=== PATIENT | female | born 1940 | race African-American/Black ===

== ENCOUNTER 2020-04-27 15:07 | Inpatient (IN) | payer MEDICARE, MEDICAID, OTHER ==
[2020-04-27 15:47] LABS: #Lymphocytes 0.8 thou/uL (1.20-3.40); #Monocytes 0.6 thou/uL (0.11-0.59); #Neutrophils 4.3 thou/uL (1.40-6.50); %Basophils 0.1 % (0.0-1.0); %Eosinophils 0.1 % (0.0-10.0); %Lymphocytes 14.7 % (21.0-51.0); %Monocytes 9.7 % (0.0-10.0); %Neutrophils 75.5 % (42.0-75.0); Hemoglobin 13.4 g/dL (12.0-16.0); Mean Corpuscular HGB CONC 33.5 g/dL (32.0-36.0); Mean Corpuscular Hemoglobin 31.6 pg (27.0-31.0); Mean Corpuscular Volume 94.5 fL (78.0-98.0); Red Blood Cell (RBC) Count 4.23 mill/uL (4.20-5.40); White Blood Cell (WBC) Count 5.7 thou/uL (4.8-10.8)
[2020-04-27] MEDS ORDERED: Dexamethasone 10 MG/ML VIAL ONE (15:55)
[2020-04-27] MEDS ORDERED: cefTRIAXone\\ROCEPHIN 2 GM VIAL ONE (15:55)
[2020-04-27] MEDS ORDERED: Azithromycin 500 MG VIAL ONE (15:55)
[2020-04-27 16:05] LABS: ALT (SGPT) 23 U/L (8-55); AST (SGOT) 45 U/L (5-34); Albumin 3.4 g/dL (3.4-4.8); Alkaline Phosphatase 54 U/L (40-110); Anion Gap 15 mmol/L (10-20); BUN (Urea Nitrogen) 14 mg/dL (9.8-20.1); Bilirubin, Total 0.2 mg/dL (0.2-1.2); Calc. Creatinine Clearance 0 mL/min (70-130); Calcium 8.4 mg/dL (7.8-10.44); Carbon Dioxide 19 mmol/L (23-31); Chloride 106 mmol/L (98-107); Estimated GFR-MDRD 54; Globulin 3.5 g/dL (2.4-3.5); Glucose 173 mg/dL (83-110); Potassium 4.3 mmol/L (3.5-5.1); Protein, Total 6.9 g/dL (6.0-8.3); Sodium 136 mmol/L (136-145)
--- NOTE | 2020-04-27 16:07 | RAD ---
Exam: Chest one view HISTORY:Sepsis. Worsening shortness of breath. Comparison: 04/24/2020 FINDINGS: Cardiac silhouette:Cardiomegaly. Sternotomy wires. Aorta: Atherosclerosis Pulmonary vessels: Normal Costophrenic angles: Clear LUNGS: Bilateral perihilar infiltrates. Pneumothorax: None Osseous abnormalities: None IMPRESSION: Bilateral perihilar infiltrates due to edema or pneumonia. Continued surveillance is kirti mmended.
[2020-04-27 16:10] LABS: Mean Platelet Volume 11.3 fL (7.4-10.4); Platelet Count 89 thou/uL (130-400); Platelet Morphology Comment Appears Decreased; RBC Morphology Normal
[2020-04-27] MEDS ORDERED: Ondansetron ODT 4 MG TAB SL PRN (18:59)
[2020-04-27] MEDS ORDERED: Sodium Chloride 0.9% 1,000 ML IV SCH (18:59)
[2020-04-27] MEDS ORDERED: Ondansetron PF 4 MG/2 ML Vial IVP PRN (18:59)
[2020-04-27] MEDS ORDERED: Acetaminophen 325 MG TAB PO PRN (18:59)
[2020-04-27] MEDS ORDERED: Dextrose 50% Abboject 50 ML SYRINGE SLOW IVP PRN (20:35)
[2020-04-27] MEDS ORDERED: Dextrose 5% in Water 1,000 ML IV PRN (20:35)
[2020-04-27] MEDS ORDERED: hydrALAZINE 20 MG/ML VIAL SLOW IVP PRN (20:37)
[2020-04-27] MEDS ORDERED: Insulin Glargine 10 UNITS in Pre-Filled Syringe 1 EACH SC SCH (21:00)
--- NOTE | 2020-04-27 21:37 | HP ---
REASON FOR ADMISSION: Shortness of breath. HISTORY OF PRESENT ILLNESS: This is a 79-year-old female patient who presented to the emergency room for worsening shortness of breath and decreased appetite. History going back to 3 weeks before her presentation, she started having off and on headaches and body aches and chills with decreased appetite. She went to see her doctor and she tested positive for COVID. She was sent to the emergency room. A CT scan demonstrated multiple areas of ground-glass opacities concerning for coronavirus, but at that time, she was not hypoxic and was sent home to come back today complaining of worsening of her symptomatology, increased shortness of breath, mainly on activity. She is coughing but not producing any phlegm. She has low appetite and feels very tired. She cannot smell her food, but she is able to taste it. PAST MEDICAL HISTORY: 1. Coronary artery disease, status post CABG. 2. Diabetes. 3. High blood pressure. 4. High cholesterol. SOCIAL HISTORY: She does not smoke. Does not drink alcohol. FAMILY HISTORY: Reviewed, found to be noncontributory. PAST SURGICAL HISTORY: 1. Right carotid endarterectomy. 2. Hysterectomy. REVIEW OF SYSTEMS: All systems reviewed except the above mentioned found to be negative. ALLERGIES: NO NOTE OF ANY DRUG ALLERGIES. PHYSICAL EXAMINATION: GENERAL: She is awake, alert, oriented, does not appear in distress. VITAL SIGNS: She has a blood pressure of 167/82, heart rate of 87, temperature is 99.1, saturating 93% on 1 L nasal cannula. HEENT: Head is nontraumatic, normocephalic. Pupils equal, reactive. Extraocular muscles are intact. Nonicteric sclerae. Well injected conjunctivae. Oral mucosa normal. Nasal mucosa normal. NECK: Supple. No adenopathy. No murmur. Thyroid is not palpable. Trachea is midline. No supraclavicular lymphadenopathy. HEART: S1, S2, regular. No murmur. No gallops. No friction rubs. No displacement of PMI. LUNGS: Slight inspiratory crackles at bilateral bases. ABDOMEN: Bowel sounds are positive. Nontender abdomen. No hepatosplenomegaly. EXTREMITIES: No lower extremity edema. No cyanosis noted. NEUROLOGIC: Cranial nerves 2 through 12 within normal limits. Normal motor function. Normal sensory function. Normal reflexes. LABORATORY DATA: Blood work shows WBC of 5.7, hemoglobin 13.4, platelets of 89, her platelets on the 5th were 109, neutrophil count 75.5%. Sodium is 136, potassium 4.3, bicarb of 19, BUN 14, creatinine 1.17, on the 5th it was 1.41, glucose 173. Urinalysis on the 5th did not show any evidence of infection. A chest x-ray shows bilateral perihilar infiltrate due to edema or pneumonia. EKG shows normal sinus rhythm, QTc of 503, prolonged QT, ST and T-wave abnormality, consider lateral ischemia per my read. ASSESSMENT AND PLAN: This is a 79-year-old female patient who is presenting with worsening of her shortness of breath. She is known to have COVID-19. Pulmonary: The patient will be admitted to IM. She did receive antibiotics in the ER, but I believe her symptomatology is due to the underlying viral infection. We will maintain her on dexamethasone. She appears to be not very short of breath at rest. Cardiac: The patient does have some EKG changes. I do not have previous EKG to compare with it, but she is not complaining of chest pain. I would cycle her cardiac enzymes and resume her home medications. We will also control her blood pressure with IV hydralazine, her QTc is prolonged. I will check a magnesium level. For DVT prophylaxis, she will be on heparin subcutaneously. Endocrinology: She will be on insulin sliding scale. I am awaiting for her home medication to be reconciled. I did discuss with her code status and she wishes to be a full code. Job ID: [id number]
[2020-04-27] MEDS: Ezetimibe 10 MG TAB PO SCH (21:38)
[2020-04-27] MEDS: hydrALAZINE 25 MG TAB PO SCH (21:39)
[2020-04-27] MEDS: Gabapentin 100 MG CAP PO SCH (21:39)
[2020-04-27 21:41] LABS: Troponin I 0.279 ng/mL (< 0.028)
[2020-04-27] MEDS: Heparin 5,000 UNITS/ML VIAL SC SCH (22:08)
[2020-04-28] MEDS: Acetaminophen 325 MG TAB PO PRN ×3 (02:54→15:17)
[2020-04-28] MEDS: hydrALAZINE 20 MG/ML VIAL SLOW IVP PRN ×2 (02:54→23:04)
[2020-04-28 05:19] LABS: Anion Gap 13 mmol/L (10-20); BUN (Urea Nitrogen) 13 mg/dL (9.8-20.1); Calc. Creatinine Clearance 64 mL/min (70-130); Calcium 8.3 mg/dL (7.8-10.44); Carbon Dioxide 20 mmol/L (23-31); Chloride 106 mmol/L (98-107); Estimated GFR-MDRD 60; Glucose 289 mg/dL (83-110); Potassium 4.4 mmol/L (3.5-5.1); Sodium 135 mmol/L (136-145)
[2020-04-28 05:35] LABS: #Lymphocytes 1.1 thou/uL (1.20-3.40); #Monocytes 0.2 thou/uL (0.11-0.59); #Neutrophils 2.4 thou/uL (1.40-6.50); %Basophils 0.6 % (0.0-1.0); %Eosinophils 0.3 % (0.0-10.0); %Lymphocytes 29.5 % (21.0-51.0); %Monocytes 5.8 % (0.0-10.0); %Neutrophils 63.8 % (42.0-75.0); Large Platelets SLIGHT; MDiff Complete? YES; Mean Corpuscular HGB CONC 31.4 g/dL (32.0-36.0); Mean Corpuscular Volume 95.6 fL (78.0-98.0); Mean Platelet Volume 11.6 fL (7.4-10.4); Platelet Count 99 thou/uL (130-400); Platelet Morphology Comment Appears Decreased; Red Blood Cell (RBC) Count 4.67 mill/uL (4.20-5.40); White Blood Cell (WBC) Count 3.8 thou/uL (4.8-10.8)
[2020-04-28] MEDS: Furosemide 40 MG TAB PO SCH ×2 (05:50→15:17)
[2020-04-28] MEDS: HumaLOG 300 UNITS/3 ML VIAL SC PRN ×4 (05:53→20:36)
[2020-04-28] MEDS: Dexamethasone 6 MG in Sodium Chloride 0.9% 50 ML IVPB SCH (08:34)
[2020-04-28] MEDS: hydrALAZINE 25 MG TAB PO SCH ×2 (08:36→20:27)
[2020-04-28] MEDS: Heparin 5,000 UNITS/ML VIAL SC SCH ×3 (08:36→20:26)
[2020-04-28] MEDS: Gabapentin 100 MG CAP PO SCH ×2 (08:39→20:24)
[2020-04-28] MEDS: Ezetimibe 10 MG TAB PO SCH (20:24)
[2020-04-28] MEDS ORDERED: Insulin Glargine 20 UNITS in Pre-Filled Syringe 1 EACH SC SCH (21:00)
[2020-04-28] MEDS ORDERED: hydrALAZINE 20 MG/ML VIAL SLOW IVP SCH (23:59)
[2020-04-29] MEDS ORDERED: hydrALAZINE 20 MG/ML VIAL SLOW IVP SCH (01:15)
[2020-04-29] MEDS ORDERED: Furosemide 40 MG/4 ML VIAL SLOW IVP SCH (01:15)
[2020-04-29] MEDS ORDERED: traMADol HCl 50 MG TAB PO PRN (02:16)
[2020-04-29 03:14] LABS: Actual Bicarbonate (HCO3a) 25.1 mEq/L (22-28); Base Excess (BEa) 2.4 mEq/L (-2.0 to +3.0); CO2 Tension 33.1 mmHg (35.0-45.0); Calcium, Ionized (arterial) 1.12 mmol/L (1.12-1.30); Carboxyhemoglobin (COHb) 0.4 gm% (0.0-3.0); Hemoglobin (Hb) 14.2 g/dL (12.0-16.0); Potassium - ABG Lab 3.85 mmol/L (3.70-5.30)
[2020-04-29 03:15] LABS: O2 Tension (PaO2), arterial 39.7 mmHg (> 70.0)
[2020-04-29 03:16] LABS: ALV-art Gradient 418.025 (0-20)
[2020-04-29 03:50] LABS: Band 8 % (5-11); Hemoglobin 14.2 g/dL (12.0-16.0); Lymphocytes 13 % (21-51); MDiff Complete? YES; Mean Corpuscular HGB CONC 33.5 g/dL (32.0-36.0); Mean Corpuscular Hemoglobin 31.5 pg (27.0-31.0); Mean Corpuscular Volume 94.1 fL (78.0-98.0); Mean Platelet Volume 10.5 fL (7.4-10.4); Monocytes 3 % (0-10); Neutrophil 76 % (42-75); Platelet Count 153 thou/uL (130-400); Platelet Morphology Comment Appears Adequate; RBC Distribution Width 12.1 % (11.5-14.5); RBC Morphology Normal; Red Blood Cell (RBC) Count 4.51 mill/uL (4.20-5.40); White Blood Cell (WBC) Count 11.2 thou/uL (4.8-10.8)
[2020-04-29 03:55] LABS: ALT (SGPT) 33 U/L (8-55); AST (SGOT) 48 U/L (5-34); Albumin 3.7 g/dL (3.4-4.8); Alkaline Phosphatase 64 U/L (40-110); Anion Gap 17 mmol/L (10-20); BUN (Urea Nitrogen) 19 mg/dL (9.8-20.1); Bilirubin, Total 0.3 mg/dL (0.2-1.2); CRP (Inflammatory) 7.89 mg/dL (= or < 0.5); Calc. Creatinine Clearance 56 mL/min (70-130); Calcium 8.7 mg/dL (7.8-10.44); Carbon Dioxide 22 mmol/L (23-31); Chloride 101 mmol/L (98-107); Estimated GFR-MDRD 51; Glucose 336 mg/dL (83-110); Magnesium 2.3 mg/dL (1.6-2.6); Potassium 3.9 mmol/L (3.5-5.1); Protein, Total 7.7 g/dL (6.0-8.3); Sodium 136 mmol/L (136-145)
[2020-04-29] MEDS: niCARdipine 25 MG in Sodium Chloride 0.9% 250 ML 240 ML IVPB SCH ×2 (03:55→07:53)
[2020-04-29] MEDS: Acetaminophen 325 MG TAB PO PRN ×2 (04:51→12:40)
[2020-04-29] MEDS: HumaLOG 300 UNITS/3 ML VIAL SC PRN ×3 (05:02→13:21)
[2020-04-29] MEDS: Furosemide 40 MG TAB PO SCH ×2 (05:15→14:00)
--- NOTE | 2020-04-29 05:46 | CON ---
DATE OF CONSULTATION: 04/28/2020 REASON FOR CONSULTATION: COVID pneumonia. HISTORY OF PRESENT ILLNESS: A 79-year-old with history of hyperlipidemia, coronary artery disease, peripheral vascular disease, and type 2 diabetes, who has been sick with cough and dyspnea for the past 3 weeks, initially tested negative for COVID in [facility] about a week before admission, but she kept getting worse and she was re-swabbed and tested positive on Saturday and she is admitted now. She has a lack of appetite and no headaches, no visual symptoms, sore throat, odynophagia , or dysphagia. No chest pain. She has quite a bit of dyspnea, no sputum production and has moderate cough. No abdominal pain or diarrhea. No genitourinary symptoms. No joint symptoms or skin disorder. PAST MEDICAL HISTORY: 1. Type 2 diabetes. 2. Hypertension. 3. Hyperlipidemia. 4. Coronary artery disease. 5. Peripheral vascular disease. 6. Prior bypass graft surgery. 7. Endarterectomy. SOCIAL HISTORY: Lives in [place] by herself. Never smoker. ALLERGIES: LIPITOR, LEXAPRO, IODINE, MELOXICAM, METFORMIN, PENICILLIN, PIOGLITAZONE, AND PREGABALIN. CURRENT MEDICATIONS: She is on: 1. Tylenol. 2. Decadron. 3. Dextrose. 4. Zetia. 5. Lasix. 6. Neurontin. 7. Glucagon. 8. Heparin. 9. Apresoline. 10. Insulin. 11. Imdur. FAMILY HISTORY: Noncontributory. She does not know where she got it from, does not go to [facility] in 2 months and so on. PHYSICAL EXAMINATION: VITAL SINGS: T-max 99.5, blood pressure 140/70, pulse 81, respirations are 31, O2 saturation 94% with 3 L nasal cannula. GENERAL: She appears quite apprehensive. SKIN: No skin lesions. Peripheral IV access and she is voiding in the bedside commode. No lymphadenopathy. HEENT: Ocular movements conjugate. Oral cavity is moist. NECK: Supple. LUNGS: Symmetric. Clear breath sounds. HEART: S1 and S2. Regular rate. No S3 or S4. ABDOMEN: Soft, not distended or tender. No ascites. No bladder distention. EXTREMITIES: No joint inflammatory activity. Moves extremities equally. NEUROLOGIC: Cognitive function appears to be intact. LABORATORY DATA: White cell count 5.7 and 3.8, hemoglobin 13.4, platelets are 89 and 99, with 75% neutrophils. Total lymphocyte count was 0.8 and now 1.1. Chemistry; sodium 136, creatinine 1.17 and 1.08, AST 45. Troponin 0.279 diffuse bilateral infiltrates, typical of COVID pneumonia on chest CT and chest x-ray. ASSESSMENT: COVID pneumonia, moderate to severe in intensity. The patient does not meet criteria for remdesivir due to the length of illness before arrival and she is on Decadron and we will go ahead and write for convalescent plasma. She is on heparin. Follow up ferritin, D-dimer, and CRP every other day. Job ID: [id number] MTDD
--- NOTE | 2020-04-29 06:47 | PDOC.EVN ---
Event Note - Event Note Event Note: called for increased work of breathing. she was given Lasix but with no improvement upgraded to ICU and started on BIPAP also nicardipine drip for uncontrolled BP.
[2020-04-29] MEDS: hydrALAZINE 25 MG TAB PO SCH ×2 (08:18→21:45)
[2020-04-29] MEDS: Gabapentin 100 MG CAP PO SCH ×2 (08:19→21:44)
[2020-04-29] MEDS: Heparin 5,000 UNITS/ML VIAL SC SCH (08:19)
[2020-04-29] MEDS: Insulin Glargine 20 UNITS in Pre-Filled Syringe 1 EACH SC SCH (08:20)
[2020-04-29] MEDS: Dexamethasone 6 MG in Sodium Chloride 0.9% 50 ML IVPB SCH (08:21)
--- NOTE | 2020-04-29 11:34 | PDOC.HOSPP ---
- Subjective Encounter Date: 04/28/20 Encounter Time: 11:30 Subjective: Patient seen and examined for resp failure. Feeling better. Mild cough. SOB on mild exertion. No new complaints. No overnight events - Objective Vital Signs & Weight: Vital Signs (12 hours) Temp Pulse BP Pulse Ox 04/29/20 11:22 105 H 04/29/20 08:18 102 H 140/85 04/29/20 07:47 102 H 92 L 04/29/20 03:40 92 L 04/29/20 01:18 102 H 179/77 H 04/29/20 00:00 98.7 F 04/28/20 23:51 98 191/85 H Weight Weight 204 lb Most Recent Monitor Data Heart Rate from ECG 102 NIBP 146/70 NIBP BP-Mean 95 Respiration from ECG 40 SpO2 94 I&O: 04/28/20 04/29/20 04/30/20 06:59 06:59 06:59 Intake Total 360 1850.9 Output Total 850 1935 Balance -490 -84.1 Result Diagrams: 04/29/20 03:15 04/29/20 03:15 Additional Labs: Accuchecks 04/29/20 04/29/20 04/28/20 08:18 05:03 20:37 POC Glucose 273 H 299 H 333 H 04/28/20 04/28/20 17:17 11:48 POC Glucose 320 H 245 H Microbiology 04/27/20 15:35 Venous blood - Left Arm Blood Culture - Preliminary Specimen has been received and culture in progress. No Growth to date. 04/27/20 15:30 Venous blood - Right Hand Blood Culture - Preliminary Specimen has been received and culture in progress. No Growth to date. Laboratory Tests 04/24/20 04/28/20 04/28/20 16:02 03:17 03:17 WBC 3.8 L Plt Count 99 L MPV 11.6 H Sodium 135 L COVID-19 PCR DETECTED A* Radiology Reviewed by me: Yes (CXR - B/L infiltrates) EKG Reviewed by me: Yes (Tele SR) Hospitalist ROS - Review of Systems Cardiovascular: denies: chest pain, palpitations, orthopnea, paroxysmal noc. dyspnea, edema, light headedness, other Gastrointestinal: denies: nausea, vomiting, abdominal pain, diarrhea, constipation, melena, hematochezia, other - Medication Medications: Active Medications Generic Name Dose Route Start Last Admin Trade Name Freq PRN Reason Stop Dose Admin Acetaminophen 650 mg 04/28/20 02:12 04/29/20 04:51 Tylenol PO 650 mg Q4H PRN Administration Headache/Fever or Pain Ezetimibe 10 mg 04/27/20 21:00 04/28/20 20:24 Zetia PO 10 mg HS AVINASH Administration Furosemide 40 mg 04/28/20 06:00 04/29/20 05:15 Lasix PO Not Given 0600,1400 AVINASH Gabapentin 100 mg 04/27/20 21:00 04/29/20 08:19 Neurontin PO 100 mg BID AVINASH Administration Heparin Sodium (Porcine) 5,000 units 04/27/20 21:00 04/29/20 08:19 Heparin SC 5,000 units TID AVINASH Administration Hydralazine HCl 50 mg 04/27/20 21:00 04/29/20 08:18 Apresoline PO 50 mg BID AVINASH Administration Hydralazine HCl 5 mg 04/27/20 20:42 04/28/20 23:04 Apresoline SLOW IVP 5 mg Q4H PRN Administration Hypertension Dexamethasone 6 mg/ Sodium 50.6 mls @ 100 mls/hr 04/28/20 09:00 04/29/20 08: 21 Chloride IVPB 50.6 mls DAILY AVINASH Administration Insulin Glargine 20 units/ 0.2 mls @ 0 mls/hr 04/28/20 21:00 04/28/20 20:26 Miscellaneous Medication SC 0.2 mls HS AVINASH Administration Insulin Glargine 20 units/ 0.2 mls @ 0 mls/hr 04/29/20 09:00 04/29/20 08:20 Miscellaneous Medication SC 0.2 mls QAM AVINASH Administration Nicardipine HCl 25 mg/ Sodium 250 mls @ 0 mls/hr 04/29/20 04:00 04/29/20 07: 53 Chloride IVPB 250 mls INF AVINASH Administration Protocol Titrate Insulin Human Lispro 0 units 04/27/20 20:35 04/29/20 08:20 Humalog SC 6 units .MODERATE SLIDING SC PRN Administration Moderate Correctional Scale Insulin Human Lispro 0 units 04/28/20 18:14 04/28/20 20:36 Humalog SC 4 unit .BEDTIME SLIDING SC PRN Administration Bedtime Correctional Scale Isosorbide Mononitrate 60 mg 04/28/20 09:00 04/29/20 08:18 Imdur PO 60 mg DAILY AVINASH Administration Pantoprazole Sodium 40 mg 04/28/20 09:00 04/29/20 08:19 Protonix PO 40 mg DAILY AVINASH Administration Sodium Chloride 10 ml 04/28/20 09:00 04/29/20 08:57 Flush - Normal Saline IVF 10 ml Q12HR AVINASH Administration Tramadol HCl 50 mg 04/29/20 02:16 04/29/20 02:34 Ultram PO 50 mg Q4H PRN Administration Moderate Pain (4-6) - Exam General Appearance: ill appearing Heart: RRR, no gallops, no rubs, normal peripheral pulses Respiratory: no wheezes, rales, rhonchi, tachypneic Gastrointestinal: soft, non-tender, non-distended, normal bowel sounds Extremities: no cyanosis Neurological: no new deficit Psychiatric: normal affect, A&O x 3 Hosp A/P - Plan DVT proph w/lovenox, DVT proph w/SCDs Acute hypoxic resp failure due to COVID Pneumonia - POA HTN HLD DM2 Obesity BMI 30.1 CAD s/p CABG PVD PLAN: Cont Dexamethasone Increase Lantus to 20 units BID Consult ID Cont sliding scale Cont other meds as above Cont MDI AM labs including inflamatory markers
[2020-04-29] MEDS ORDERED: Nitroglycerin 2% Ointment 1 INCH/1 GM Packet TOP PRN (11:37)
[2020-04-29] MEDS: niCARdipine 50 MG in Sodium Chloride 0.9% 250 ML 230 ML IVPB SCH (13:20)
--- NOTE | 2020-04-29 14:13 | CON ---
DATE OF CONSULTATION: 04/29/2020 HISTORY OF PRESENT ILLNESS: Ms. Chowdhury is a 79-year-old female who was admitted to the intermediate care unit with COVID pneumonia. She was transferred to the ICU last night, placed on BiPAP. PAST MEDICAL HISTORY: Remarkable for: 1. Coronary artery disease. 2. Diabetes. 3. Hypertension. 4. Lipid disorder. SOCIAL HISTORY: She is a nonsmoker and nondrinker. PAST SURGICAL HISTORY: Remarkable for: 1. Carotid endarterectomy. 2. Hysterectomy. REVIEW OF SYSTEMS: Not accurately obtainable. PHYSICAL EXAMINATION: VITAL SIGNS: She is on BiPAP. Heart rate 100, blood pressure 140/85, respiratory rate is in the 20s. GENERAL: She appears reasonably comfortable. LUNGS: Clear. HEART: Regular rhythm. ABDOMEN: Soft. EXTREMITIES: Without edema. LABORATORY DATA: White count 11.2, hemoglobin 14.2, and platelets 153. Sodium 136, potassium 3.9, chloride 101, bicarb 22, BUN 19, and creatinine 1.24. Apparently, she received convalescent plasma last night. C-reactive protein 7. She needs to be started on steroids. She needs empiric broad antimicrobial therapy it would not be unreasonable to give her an interleukin-6 inhibitor. We will follow along with the other physicians caring for her. TIME SPENT: This is a 70-minute consult, 50% of the time was spent on the unit coordinating care. Job ID: [id number] MTDD
[2020-04-29] MEDS ORDERED: HumaLOG 300 UNITS/3 ML VIAL SC PRN (14:40)
[2020-04-29] MEDS: Cefepime 1 GM in Sodium Chloride 0.9% 100 ML IVPB SCH (16:49)
[2020-04-29] MEDS: Dextrose 5 % And 0.9 % NaCl 1,000 ML IV SCH (16:51)
[2020-04-29 19:48] LABS: Actual Bicarbonate (HCO3a) 20.5 mEq/L (22-28); Base Excess (BEa) -1.5 mEq/L (-2.0 to +3.0); CO2 Tension 27.4 mmHg (35.0-45.0); Calcium, Ionized (arterial) 1.14 mmol/L (1.12-1.30); Carboxyhemoglobin (COHb) 0.3 gm% (0.0-3.0); Hemoglobin (Hb) 13.5 g/dL (12.0-16.0); pH, Arterial 7.49 (7.35-7.45)
[2020-04-29 19:49] LABS: O2 Tension (PaO2), arterial 59.9 mmHg (> 70.0)
[2020-04-29 19:50] LABS: Puncture Site RR
[2020-04-29] MEDS ORDERED: Propofol BOLUS 1,000 MG/100 ML VIAL IV PRN (20:20)
[2020-04-29] MEDS ORDERED: Morphine 2 MG/ML VIAL SLOW IVP PRN (20:20)
[2020-04-29] MEDS ORDERED: DISCONTINUE PREVIOUS NARCOTIC PAIN MEDICATIONS AND BENZODIAZEPINES FS SCH (20:20)
[2020-04-29] MEDS ORDERED: Fentanyl BOLUS 250 ML IVPB PRN (20:20)
[2020-04-29] MEDS ORDERED: Propofol 1,000 MG/100 ML VIAL IV ONE (20:21)
[2020-04-29] MEDS ORDERED: Ascorbic Acid 500 mg Chewable Tablet PO SCH (21:00)
[2020-04-29] MEDS ORDERED: methylPREDNISolone Sod Succ 40 MG VIAL IVP SCH (21:00)
[2020-04-29] MEDS ORDERED: Enoxaparin Sodium 40 MG/0.4 ML SYRINGE SC SCH (21:00)
[2020-04-29] MEDS: fentaNYL Citrate/PF 2,000 MCG in Sodium Chloride 0.9% 60 ML IV SCH (21:08)
[2020-04-29] MEDS: Vecuronium 10 MG VIAL IV PRN ×2 (21:11→22:30)
--- NOTE | 2020-04-29 21:28 | RAD ---
Portable frontal chest radiograph: 04/29/2020 COMPARISON: 04/27/2020 HISTORY: Evaluate chest following intubation FINDINGS: Midline sternotomy wires and prominence of the cardiac silhouette again noted. New endotrac heal tube and nasogastric tube in proper position. Extensive interstitial opacity with superimposed ground glass opacities/alveolar opacity noted throughout both lungs with a perihilar and bibasilar pr edominance, left greater than right. Opacities have worsened since the prior examination in the upper lobes and perihilar regions IMPRESSION: New endotracheal tube and nasogastric tube in place. Extensive interstitial and alveolar opacity consistent with multilobar infectious pneumonitis, worsened since the prior examination. Question a history of Covid pneumonia.
[2020-04-29 21:40] LABS: Actual Bicarbonate (HCO3a) 22.2 mEq/L (22-28); CO2 Tension 36.4 mmHg (35.0-45.0); Calcium, Ionized (arterial) 1.15 mmol/L (1.12-1.30); Carboxyhemoglobin (COHb) 0.3 gm% (0.0-3.0); Potassium - ABG Lab 4.08 mmol/L (3.70-5.30)
[2020-04-29 21:41] LABS: O2 Tension (PaO2), arterial 49.7 mmHg (> 70.0)
[2020-04-29 21:42] LABS: Puncture Site RR
[2020-04-29] MEDS: Enoxaparin Sodium 80 MG/0.8 ML SYRINGE SC SCH (21:44)
[2020-04-29] MEDS: methylPREDNISolone Sod Succ 40 MG VIAL IVP SCH (21:46)
[2020-04-29] MEDS: Ezetimibe 10 MG TAB PO SCH (22:06)
[2020-04-29] MEDS: Zinc Sulfate 220 MG CAP PO SCH (22:07)
[2020-04-29] MEDS ORDERED: Sterile Water 10 ML ONE (22:27)
[2020-04-30] MEDS: niCARdipine 50 MG in Sodium Chloride 0.9% 250 ML 230 ML IVPB SCH (00:22)
[2020-04-30] MEDS: Propofol 1,000 MG/100 ML VIAL IV PRN ×6 (00:22→22:59)
--- NOTE | 2020-04-30 01:33 | PDOC.HOSPP ---
- Subjective Encounter Date: 04/29/20 Encounter Time: 14:00 Subjective: Overnight events noted - started on NIPPV - Objective Vital Signs & Weight: Vital Signs (12 hours) Pulse Resp BP 04/30/20 00:00 20 04/29/20 22:36 108 H 134/63 04/29/20 22:00 20 04/29/20 21:45 105 H 04/29/20 20:35 20 04/29/20 18:50 105 H 04/29/20 14:23 100 Weight Weight 204 lb Most Recent Monitor Data Heart Rate from ECG 90 NIBP 118/60 NIBP BP-Mean 79 Respiration from ECG 20 SpO2 100 I&O: 04/28/20 04/29/20 04/30/20 06:59 06:59 06:59 Intake Total 360 1850.9 1533.2 Output Total 850 1935 805 Balance -490 -84.1 728.2 Result Diagrams: 04/29/20 03:15 04/29/20 03:15 Additional Labs: Accuchecks 04/29/20 04/29/20 04/29/20 17:08 12:56 08:18 POC Glucose 185 H 168 H 273 H 04/29/20 05:03 POC Glucose 299 H EKG Reviewed by me: Yes (Tele SR) Hospitalist ROS - Medication Medications: Active Medications Generic Name Dose Route Start Last Admin Trade Name Freq PRN Reason Stop Dose Admin Acetaminophen 650 mg 04/28/20 02:12 04/29/20 12:40 Tylenol PO 650 mg Q4H PRN Administration Headache/Fever or Pain Ezetimibe 10 mg 04/27/20 21:00 04/29/20 22:06 Zetia PO 10 mg HS AVINASH Administration Enoxaparin Sodium 80 mg 04/29/20 21:00 04/29/20 21:44 Lovenox SC 80 mg 0900,2100 AVINASH Administration Furosemide 40 mg 04/29/20 14:00 04/29/20 14:00 Lasix PO Not Given 0900,1400 AVINASH Gabapentin 100 mg 04/27/20 21:00 04/29/20 21:44 Neurontin PO 100 mg BID AVINASH Administration Hydralazine HCl 50 mg 04/27/20 21:00 04/29/20 21:45 Apresoline PO 50 mg BID AVINASH Administration Hydralazine HCl 5 mg 04/27/20 20:42 04/28/20 23:04 Apresoline SLOW IVP 5 mg Q4H PRN Administration Hypertension Insulin Glargine 20 units/ 0.2 mls @ 0 mls/hr 04/29/20 09:00 04/29/20 08:20 Miscellaneous Medication SC 0.2 mls QAM AVINASH Administration Doxycycline Hyclate 100 mg/ 100 mls @ 100 mls/hr 04/29/20 21:00 04/29/20 22: 13 Sodium Chloride IVPB 100 mls Q12HR AVINASH Administration Nicardipine HCl 50 mg/ Sodium 250 mls @ 0 mls/hr 04/29/20 13:00 04/30/20 00: 22 Chloride IVPB 250 mls INF AVINASH Administration Protocol Titrate Dextrose/Sodium Chloride 1,000 mls @ 30 mls/hr 04/29/20 14:45 04/29/20 16:51 D5 0.9% Ns IV 1,000 mls .Q24H AVINASH Administration Cefepime HCl 1 gm/ Sodium 100 mls @ 200 mls/hr 04/29/20 16:00 04/29/20 16:49 Chloride IVPB 100 mls 0400,1600 AVINASH Administration Fentanyl Citrate 2,000 mcg/ 100 mls @ 0 mls/hr 04/29/20 20:20 04/29/20 21:08 Sodium Chloride IV 05/29/20 20:20 100 mls INF AVINASH Administration Protocol Per Protocol Insulin Human Lispro 0 units 04/28/20 18:14 04/28/20 20:36 Humalog SC 4 unit .BEDTIME SLIDING SC PRN Administration Bedtime Correctional Scale Isosorbide Mononitrate 60 mg 04/28/20 09:00 04/29/20 08:18 Imdur PO 60 mg DAILY AVINASH Administration Methylprednisolone Sodium Succinate 60 mg 04/29/20 21:00 04/29/20 21:46 Solu-Medrol IVP 60 mg Q12HR AVINASH Administration Pantoprazole Sodium 40 mg 04/28/20 09:00 04/29/20 08:19 Protonix PO 40 mg DAILY AVINASH Administration Propofol 1,000 mg 04/29/20 20:20 04/30/20 00:22 Diprivan IV 05/29/20 20:20 1,000 mg INF PRN Administration TO ACHIEVE GOAL RASS Protocol Sodium Chloride 10 ml 04/28/20 09:00 04/29/20 22:05 Flush - Normal Saline IVF 10 ml Q12HR AVINASH Administration Vecuronium Equality 10 mg 04/29/20 20:19 04/29/20 22:30 Norcuron IV 10 mg Q1H PRN Administration SPASM Zinc Sulfate 220 mg 04/29/20 21:00 04/29/20 22:07 Zinc Sulfate PO 220 mg HS AVINASH Administration - Exam General Appearance: ill appearing Hosp A/P - Plan DVT proph w/lovenox, DVT proph w/SCDs Acute hypoxic resp failure due to COVID Pneumonia -s/p C Plasma -on Steroids HTN HLD DM2 Obesity BMI 30.1 CAD s/p CABG PVD PLAN: Started on IV Solumedrol Chanege Lantus 20 units daily Cont NIPPV Cont sliding scale Add IVF at KVO Cont other meds as above Cont MDI AM labs including inflamatory markers
[2020-04-30] MEDS: Cefepime 1 GM in Sodium Chloride 0.9% 100 ML IVPB SCH ×2 (03:59→16:08)
[2020-04-30] MEDS ORDERED: Sterile Water 10 ML ONE (04:09)
[2020-04-30] MEDS: Vecuronium 10 MG VIAL IV PRN ×4 (04:25→21:47)
[2020-04-30 04:41] LABS: Anion Gap 17 mmol/L (10-20); BUN (Urea Nitrogen) 23 mg/dL (9.8-20.1); CRP (Inflammatory) 17.02 mg/dL (= or < 0.5); Calc. Creatinine Clearance 61 mL/min (70-130); Calcium 8.1 mg/dL (7.8-10.44); Carbon Dioxide 18 mmol/L (23-31); Chloride 109 mmol/L (98-107); Estimated GFR-MDRD 56; Glucose 361 mg/dL (83-110); Magnesium 2.6 mg/dL (1.6-2.6); Potassium 4.2 mmol/L (3.5-5.1); Sodium 140 mmol/L (136-145)
[2020-04-30] MEDS: Lorazepam 2 MG/ML VIAL SLOW IVP PRN ×3 (07:37→21:47)
[2020-04-30 08:10] LABS: Hemoglobin 13.4 g/dL (12.0-16.0); Mean Corpuscular Hemoglobin 30.4 pg (27.0-31.0); Mean Corpuscular Volume 94.9 fL (78.0-98.0); Mean Platelet Volume 10.4 fL (7.4-10.4); Platelet Count 151 thou/uL (130-400); RBC Distribution Width 12.3 % (11.5-14.5); White Blood Cell (WBC) Count 10.9 thou/uL (4.8-10.8)
[2020-04-30] MEDS: Insulin Glargine 20 UNITS in Pre-Filled Syringe 1 EACH SC SCH (08:46)
[2020-04-30] MEDS: methylPREDNISolone Sod Succ 40 MG VIAL IVP SCH ×2 (08:46→20:42)
[2020-04-30] MEDS: Furosemide 40 MG TAB PO SCH ×2 (08:47→13:26)
[2020-04-30] MEDS: hydrALAZINE 25 MG TAB PO SCH ×2 (08:47→20:43)
[2020-04-30] MEDS: Ascorbic Acid 500 mg Chewable Tablet PO SCH (08:47)
[2020-04-30 08:48] LABS: Eosinophils 1 % (0-10); Large Platelets SLIGHT; Lymphocytes 12 % (21-51); MDiff Complete? YES; Monocytes 8 % (0-10); Neutrophil 79 % (42-75); Platelet Morphology Comment Appears Adequate
[2020-04-30] MEDS: Gabapentin 100 MG CAP PO SCH ×2 (08:48→20:43)
[2020-04-30] MEDS: Enoxaparin Sodium 80 MG/0.8 ML SYRINGE SC SCH ×2 (08:48→20:43)
--- NOTE | 2020-04-30 11:52 | PRG ---
DATE OF SERVICE: 04/30/2020 35 minutes of critical care time. SUBJECTIVE: The patient remains intubated on mechanical ventilation. She is in a prone position. She has COVID-19 pneumonia. OBJECTIVE: VITAL SIGNS: Temperature 98.8, pulse 80, blood pressure 122/57, O2 saturation running 100%. She is currently paralyzed chemically. HEENT: Unremarkable. NECK: No JVD. CHEST: Clear posteriorly. CARDIAC: S1 and S2 regular. ABDOMEN: Obese. EXTREMITIES: No edema. LABORATORY DATA: White blood cell count 10.9, hematocrit 41.8, and platelet count 151. Sodium 140, potassium 4.2, chloride 109, CO2 of 18, BUN 23, creatinine 1.3, glucose 361. Chest x-ray demonstrates diffuse bilateral infiltrates. ASSESSMENT: COVID-19 pneumonia with acute hypoxic respiratory failure requiring mechanical ventilation. PLAN: 1. Prone position ventilation until tonight and then try at least a couple of hours supine. 2. Go ahead and give her IL-6 inhibitor. She has received a dose of convalescent plasma. She is not a candidate for remdesivir based on the fact that she is on mechanical ventilation. Continue steroids. Job ID: [id number]
[2020-04-30 12:05] LABS: Actual Bicarbonate (HCO3a) 20.4 mEq/L (22-28); Base Excess (BEa) -1.8 mEq/L (-2.0 to +3.0); CO2 Tension 27.6 mmHg (35.0-45.0); Calcium, Ionized (arterial) 1.15 mmol/L (1.12-1.30); Carboxyhemoglobin (COHb) 0.3 gm% (0.0-3.0); Hemoglobin (Hb) 13.1 g/dL (12.0-16.0); O2 Tension (PaO2), arterial 65.4 mmHg (> 70.0); pH, Arterial 7.49 (7.35-7.45)
[2020-04-30] MEDS ORDERED: Tocilizumab 400 MG in Sodium Chloride 0.9% 80 ML IV SCH (12:15)
[2020-04-30 12:38] LABS: Puncture Site LR
[2020-04-30] MEDS: HumaLOG 300 UNITS/3 ML VIAL SC PRN ×3 (12:44→21:08)
[2020-04-30] MEDS: Dextrose 5 % And 0.9 % NaCl 1,000 ML IV SCH (16:08)
[2020-04-30] MEDS: fentaNYL Citrate/PF 2,000 MCG in Sodium Chloride 0.9% 60 ML IV SCH (16:25)
[2020-04-30] MEDS: Budesonide 0.5 MG/2 ML NEB INH SCH (19:19)
--- NOTE | 2020-04-30 20:14 | PDOC.HOSPP ---
- Subjective Encounter Date: 04/30/20 Encounter Time: 20:14 Subjective: Pt seen for followup re: acute hypoxic respiratory failure. Intubated, unable to complete ROS. - Objective Vital Signs & Weight: Vital Signs (12 hours) Pulse Resp BP Pulse Ox 04/30/20 19:19 69 20 100 04/30/20 18:55 70 04/30/20 18:00 20 04/30/20 16:00 20 04/30/20 15:13 74 131/56 L 04/30/20 14:00 20 04/30/20 12:00 20 04/30/20 10:28 78 121/55 L 04/30/20 10:00 20 04/30/20 08:47 80 125/57 L Weight Admit Weight 204 lb Weight 204 lb Most Recent Monitor Data Heart Rate from ECG 66 NIBP 131/58 NIBP BP-Mean 82 Respiration from ECG 20 SpO2 100 I&O: 04/29/20 04/30/20 05/01/20 06:59 06:59 06:59 Intake Total 1850.9 1944.7 888.5 Output Total 1935 1050 945 Balance -84.1 894.7 -56.5 Result Diagrams: 04/30/20 07:33 04/30/20 03:58 Additional Labs: Accuchecks 04/30/20 04/30/20 04/30/20 16:34 12:36 06:36 POC Glucose 358 H 315 H 370 H 04/29/20 22:40 POC Glucose 276 H labs and MARs reviewed by me EKG Reviewed by me: Yes (Tele: NSR) Hospitalist ROS - Review of Systems ROS unobtainable: due to endotracheal tube - Medication Medications: Active Medications Generic Name Dose Route Start Last Admin Trade Name Freq PRN Reason Stop Dose Admin Acetaminophen 650 mg 04/28/20 02:12 04/29/20 12:40 Tylenol PO 650 mg Q4H PRN Administration Headache/Fever or Pain Ascorbic Acid 1,000 mg 04/30/20 09:00 04/30/20 08:47 Vitamin C PO 1,000 mg DAILY AVINASH Administration Budesonide 0.5 mg 04/30/20 18:30 04/30/20 19:19 Pulmicort Neb Solution INH 0.5 mg BID-RT AVINASH Administration Ezetimibe 10 mg 04/27/20 21:00 04/29/20 22:06 Zetia PO 10 mg HS AVINASH Administration Enoxaparin Sodium 80 mg 04/29/20 21:00 04/30/20 08:48 Lovenox SC 80 mg 0900,2100 AVINASH Administration Furosemide 40 mg 04/29/20 14:00 04/30/20 13:26 Lasix PO 40 mg 0900,1400 AVINASH Administration Gabapentin 100 mg 04/27/20 21:00 04/30/20 08:48 Neurontin PO 100 mg BID AVINASH Administration Hydralazine HCl 50 mg 04/27/20 21:00 04/30/20 08:47 Apresoline PO 50 mg BID AVINASH Administration Hydralazine HCl 5 mg 04/27/20 20:42 04/28/20 23:04 Apresoline SLOW IVP 5 mg Q4H PRN Administration Hypertension Insulin Glargine 20 units/ 0.2 mls @ 0 mls/hr 04/29/20 09:00 04/30/20 08:46 Miscellaneous Medication SC 0.2 mls QAM AVINASH Administration Doxycycline Hyclate 100 mg/ 100 mls @ 100 mls/hr 04/29/20 21:00 04/30/20 08: 46 Sodium Chloride IVPB 100 mls Q12HR AVINASH Administration Nicardipine HCl 50 mg/ Sodium 250 mls @ 0 mls/hr 04/29/20 13:00 04/30/20 00: 22 Chloride IVPB 250 mls INF AVINASH Administration Protocol Titrate Dextrose/Sodium Chloride 1,000 mls @ 30 mls/hr 04/29/20 14:45 04/30/20 16:08 D5 0.9% Ns IV Not Given .Q24H AVINASH Cefepime HCl 1 gm/ Sodium 100 mls @ 200 mls/hr 04/29/20 16:00 04/30/20 16:08 Chloride IVPB 100 mls 0400,1600 AVINASH Administration Fentanyl Citrate 2,000 mcg/ 100 mls @ 0 mls/hr 04/29/20 20:20 04/30/20 16:25 Sodium Chloride IV 05/29/20 20:20 100 mls INF AVINASH Administration Protocol Per Protocol Insulin Human Lispro 0 units 04/28/20 18:14 04/30/20 16:43 Humalog SC 4 unit .BEDTIME SLIDING SC PRN Administration Bedtime Correctional Scale Insulin Human Lispro 0 units 04/29/20 14:40 04/30/20 06:36 Humalog SC 6 unit .MILD SLIDING SCALE PRN Administration Mild Correctional Scale Isosorbide Mononitrate 60 mg 04/28/20 09:00 04/30/20 08:48 Imdur PO 60 mg DAILY AVINASH Administration Lorazepam 2 mg 04/29/20 20:20 04/30/20 16:42 Ativan SLOW IVP 05/29/20 20:20 2 mg Q1H PRN Administration Breakthrough agitation Methylprednisolone Sodium Succinate 60 mg 04/29/20 21:00 04/30/20 08:46 Solu-Medrol IVP 60 mg Q12HR AVINASH Administration Pantoprazole Sodium 40 mg 04/28/20 09:00 04/30/20 08:48 Protonix PO 40 mg DAILY AVINASH Administration Propofol 1,000 mg 04/29/20 20:20 04/30/20 18:14 Diprivan IV 05/29/20 20:20 1,000 mg INF PRN Administration TO ACHIEVE GOAL RASS Protocol Sodium Chloride 10 ml 04/28/20 09:00 04/30/20 08:48 Flush - Normal Saline IVF 10 ml Q12HR AVINASH Administration Vecuronium [place] 10 mg 04/29/20 20:19 04/30/20 16:43 Norcuron IV 10 mg Q1H PRN Administration SPASM Zinc Sulfate 220 mg 04/29/20 21:00 04/29/20 22:07 Zinc Sulfate PO 220 mg HS AVINASH Administration - Exam General - other findings: Obese, Intubated, prone positioning Neck: no lymphadenopathy Heart: RRR Respiratory: CTAB Extremities: no cyanosis Skin: no rashes Psychiatric - other findings: Unable to assess Hosp A/P - Plan Assessment: Acute hypoxic resp failure due to COVID Pneumonia -s/p C Plasma -on Steroids -Plan for IL-6 inhibitor HLD DM2 HTN Obesity BMI 30.1 CAD s/p CABG PVD PLAN: Increase lantus to 25 units daily, switcht o moderate ISS HTN controlled Pt is intubated, prone positioning Updated son Kwame over telephone.
[2020-04-30] MEDS ORDERED: Insulin Glargine 5 UNITS in Pre-Filled Syringe 1 EACH SC SCH (20:30)
[2020-04-30] MEDS: Ezetimibe 10 MG TAB PO SCH (20:43)
[2020-04-30] MEDS: Zinc Sulfate 220 MG CAP PO SCH (20:43)
[2020-04-30] MEDS: Sterile Water 10 ML VIAL IVP PRN (21:47)
[2020-05-01 02:43] LABS: Anion Gap 13 mmol/L (10-20); BUN (Urea Nitrogen) 27 mg/dL (9.8-20.1); Calc. Creatinine Clearance 66 mL/min (70-130); Calcium 8.2 mg/dL (7.8-10.44); Carbon Dioxide 24 mmol/L (23-31); Chloride 106 mmol/L (98-107); Estimated GFR-MDRD 62; Glucose 319 mg/dL (83-110); Magnesium 2.6 mg/dL (1.6-2.6); Potassium 3.4 mmol/L (3.5-5.1); Sodium 140 mmol/L (136-145)
[2020-05-01 02:47] LABS: Band 2 % (5-11); Hemoglobin 12.3 g/dL (12.0-16.0); Lymphocytes 9 % (21-51); MDiff Complete? YES; Mean Corpuscular HGB CONC 32.9 g/dL (32.0-36.0); Mean Corpuscular Volume 94.3 fL (78.0-98.0); Mean Platelet Volume 10.5 fL (7.4-10.4); Monocytes 4 % (0-10); Neutrophil 85 % (42-75); Platelet Count 191 thou/uL (130-400); Platelet Morphology Comment Appears Adequate; RBC Distribution Width 12.2 % (11.5-14.5); RBC Morphology Normal; Red Blood Cell (RBC) Count 3.96 mill/uL (4.20-5.40); White Blood Cell (WBC) Count 6.9 thou/uL (4.8-10.8)
[2020-05-01] MEDS: Cefepime 1 GM in Sodium Chloride 0.9% 100 ML IVPB SCH ×2 (03:34→16:05)
[2020-05-01] MEDS: Propofol 1,000 MG/100 ML VIAL IV PRN ×4 (03:34→18:36)
[2020-05-01] MEDS: HumaLOG 300 UNITS/3 ML VIAL SC PRN ×4 (05:52→20:47)
[2020-05-01] MEDS: Lorazepam 2 MG/ML VIAL SLOW IVP PRN (07:07)
[2020-05-01] MEDS: Vecuronium 10 MG VIAL IV PRN (07:07)
[2020-05-01] MEDS: Sterile Water 10 ML VIAL IVP PRN (07:07)
[2020-05-01] MEDS: Budesonide 0.5 MG/2 ML NEB INH SCH ×2 (07:16→18:41)
[2020-05-01 07:41] LABS: Actual Bicarbonate (HCO3a) 19.8 mEq/L (22-28); Base Excess (BEa) -2.8 mEq/L (-2.0 to +3.0); CO2 Tension 28.1 mmHg (35.0-45.0); Calcium, Ionized (arterial) 1.13 mmol/L (1.12-1.30); Carboxyhemoglobin (COHb) 0.1 gm% (0.0-3.0); Hemoglobin (Hb) 12.7 g/dL (12.0-16.0); Potassium - ABG Lab 3.46 mmol/L (3.70-5.30); pH, Arterial 7.47 (7.35-7.45)
[2020-05-01 07:57] LABS: O2 Tension (PaO2), arterial 45.4 mmHg (> 70.0); Puncture Site RB
[2020-05-01 07:58] LABS: ALV-art Gradient 240.325 (0-20)
[2020-05-01] MEDS: Insulin Glargine 25 UNITS in Pre-Filled Syringe 1 EACH SC SCH (08:12)
[2020-05-01] MEDS: Enoxaparin Sodium 80 MG/0.8 ML SYRINGE SC SCH ×2 (08:13→20:20)
[2020-05-01] MEDS: methylPREDNISolone Sod Succ 40 MG VIAL IVP SCH ×2 (08:13→20:21)
[2020-05-01] MEDS: hydrALAZINE 25 MG TAB PO SCH ×2 (08:14→20:19)
[2020-05-01] MEDS: Furosemide 40 MG TAB PO SCH (08:15)
[2020-05-01] MEDS: Gabapentin 100 MG CAP PO SCH ×2 (08:15→20:20)
[2020-05-01] MEDS: Ascorbic Acid 500 mg Chewable Tablet PO SCH (08:15)
--- NOTE | 2020-05-01 09:26 | RAD ---
RADIOGRAPH CHEST 1 VIEW: DATE: 05/01/2020 TIME: 5:38 AM HISTORY: 79-year-old female with pneumonia COMPARISON: 04/29/2020 FINDINGS: Endotracheal tube and esophagogastric tube remain. Sternotomy wires are again noted. No pneumothorax. Moderately severe diffuse bilateral interstitial-alveolar infiltrates remain. Relative sparing of lung apices. No interval change overall. Review of CT of 04/24/2020, when the infiltrates were less sev ere, reveal multifocal groundglass infiltrates suggestive of COVID-19 pneumonia. IMPRESSION: No interval change in extensive bilateral pneumonia, probably COVID-19
--- NOTE | 2020-05-01 11:56 | PRG ---
DATE OF SERVICE: 05/01/2020 35 minutes of critical care time. SUBJECTIVE: The patient remains intubated on mechanical ventilation. She has been moved to a supine position and so far is oxygenating okay. OBJECTIVE: VITAL SIGNS: Her temperature is 95.9, pulse 57, blood pressure 105/53, and O2 saturation 96%. HEENT: Unremarkable. NECK: No JVD. LUNGS: Crackles bilaterally. CARDIAC: S1 and S2. Regular. ABDOMEN: Soft. EXTREMITIES: No edema. LABORATORY DATA: White blood cell count 6.9, hematocrit 37.3, and platelet count 191. D-dimer is 1.2. PH 7.47, pCO2 of 28, pO2 of 45 on SIMV rate 20, tidal volume 500, PEEP 10, pressure support 13, FiO2 of 45%-suspect this is a mixed venous gas. Ferritin level 2126, which is up. Sodium 140, potassium 3.4, chloride 106, CO2 of 24, BUN 27, creatinine 1.0, glucose 353. Her x-ray shows diffuse bilateral infiltrates. ASSESSMENT: 1. COVID-19 pneumonia with acute hypoxic respiratory failure requiring mechanical ventilation. 2. Elevated blood sugar secondary to steroid use. 3. Status post administration of convalescent plasma, IL-6 inhibitor. 4. Not a candidate for remdesivir secondary to severity of hypoxemia. PLAN: 1. Continue steroids. 2. Given that her BUN is starting to increase, I will go ahead and hold her diuretics. 3. Initiate enteral tube feeding. 4. I have made some minor adjustments to her ventilator. Job ID: [id number]
[2020-05-01] MEDS: Dextrose 5 % And 0.9 % NaCl 1,000 ML IV SCH (12:10)
[2020-05-01] MEDS: fentaNYL Citrate/PF 2,000 MCG in Sodium Chloride 0.9% 60 ML IV SCH (12:12)
[2020-05-01] MEDS: Sodium Chloride 0.9% 1,000 ML IV SCH (18:23)
[2020-05-01] MEDS: Ezetimibe 10 MG TAB PO SCH (20:20)
[2020-05-01] MEDS: Zinc Sulfate 220 MG CAP PO SCH (20:20)
--- NOTE | 2020-05-01 21:01 | PDOC.HOSPP ---
- Subjective Encounter Date: 05/01/20 Encounter Time: 12:00 Subjective: pt seen for hypoxic respiratory failure. - Objective Vital Signs & Weight: Vital Signs (12 hours) Temp Pulse Resp BP Pulse Ox 05/01/20 20:19 54 L 05/01/20 18:41 54 L 18 100 05/01/20 18:27 56 L 153/68 H 05/01/20 18:00 17 05/01/20 16:00 95.8 F L 18 05/01/20 14:54 54 L 121/64 05/01/20 14:00 18 05/01/20 12:00 95.9 F L 18 05/01/20 11:00 95.6 F L 05/01/20 10:58 51 L 105/53 L 05/01/20 10:00 18 Weight Admit Weight 204 lb Weight 204 lb Most Recent Monitor Data Heart Rate from ECG 54 NIBP 153/64 NIBP BP-Mean 93 Respiration from ECG 18 SpO2 95 I&O: 04/30/20 05/01/20 05/02/20 06:59 06:59 06:59 Intake Total 1944.7 1585.0 1027.2 Output Total 1050 1555 560 Balance 894.7 30.0 467.2 Result Diagrams: 05/01/20 02:00 05/01/20 02:00 Additional Labs: Accuchecks 05/01/20 05/01/20 05/01/20 17:45 12:26 05:54 POC Glucose 308 H 321 H 353 H 04/30/20 21:09 POC Glucose 319 H labs and MARs reviewed by me EKG Reviewed by me: Yes (tele:NSR) Hospitalist ROS - Review of Systems ROS unobtainable: due to endotracheal tube - Medication Medications: Active Medications Generic Name Dose Route Start Last Admin Trade Name Freq PRN Reason Stop Dose Admin Acetaminophen 650 mg 04/28/20 02:12 04/29/20 12:40 Tylenol PO 650 mg Q4H PRN Administration Headache/Fever or Pain Ascorbic Acid 1,000 mg 04/30/20 09:00 05/01/20 08:15 Vitamin C PO 1,000 mg DAILY AVINASH Administration Budesonide 0.5 mg 04/30/20 18:30 05/01/20 18:41 Pulmicort Neb Solution INH 0.5 mg BID-RT AVINASH Administration Ezetimibe 10 mg 04/27/20 21:00 05/01/20 20:20 Zetia PO 10 mg HS AVINASH Administration Enoxaparin Sodium 80 mg 04/29/20 21:00 05/01/20 20:20 Lovenox SC 80 mg 0900,2100 AVINASH Administration Gabapentin 100 mg 04/27/20 21:00 05/01/20 20:20 Neurontin PO 100 mg BID AVINASH Administration Hydralazine HCl 50 mg 04/27/20 21:00 05/01/20 20:19 Apresoline PO 50 mg BID AVINASH Administration Hydralazine HCl 5 mg 04/27/20 20:42 04/28/20 23:04 Apresoline SLOW IVP 5 mg Q4H PRN Administration Hypertension Doxycycline Hyclate 100 mg/ 100 mls @ 100 mls/hr 04/29/20 21:00 05/01/20 20: 21 Sodium Chloride IVPB 100 mls Q12HR AVINASH Administration Nicardipine HCl 50 mg/ Sodium 250 mls @ 0 mls/hr 04/29/20 13:00 04/30/20 00: 22 Chloride IVPB 250 mls INF AVINASH Administration Protocol Titrate Cefepime HCl 1 gm/ Sodium 100 mls @ 200 mls/hr 04/29/20 16:00 05/01/20 16:05 Chloride IVPB 100 mls 0400,1600 AVINASH Administration Fentanyl Citrate 2,000 mcg/ 100 mls @ 0 mls/hr 04/29/20 20:20 05/01/20 12:12 Sodium Chloride IV 05/29/20 20:20 100 mls INF AVINASH Administration Protocol Per Protocol Insulin Glargine 25 units/ 0.25 mls @ 0 mls/hr 05/01/20 09:00 05/01/20 08:12 Miscellaneous Medication SC 0.25 mls QAM AVINASH Administration Sodium Chloride 1,000 mls @ 75 mls/hr 05/01/20 18:15 05/01/20 18:23 Normal Saline 0.9% IV 1,000 mls .[id number] AVINASH Administration Insulin Human Lispro 0 units 04/28/20 18:14 05/01/20 17:42 Humalog SC 4 unit .BEDTIME SLIDING SC PRN Administration Bedtime Correctional Scale Insulin Human Lispro 0 units 04/30/20 20:17 05/01/20 20:47 Humalog SC 6 unit .MODERATE SLIDING SC PRN Administration Moderate Correctional Scale Isosorbide Mononitrate 60 mg 04/28/20 09:00 05/01/20 08:16 Imdur PO 60 mg DAILY AVINASH Administration Lorazepam 2 mg 04/29/20 20:20 05/01/20 07:07 Ativan SLOW IVP 05/29/20 20:20 2 mg Q1H PRN Administration Breakthrough agitation Methylprednisolone Sodium Succinate 60 mg 04/29/20 21:00 05/01/20 20:21 Solu-Medrol IVP 60 mg Q12HR AVINASH Administration Pantoprazole Sodium 40 mg 04/28/20 09:00 05/01/20 08:15 Protonix PO 40 mg DAILY AVINASH Administration Propofol 1,000 mg 04/29/20 20:20 05/01/20 18:36 Diprivan IV 05/29/20 20:20 1,000 mg INF PRN Administration TO ACHIEVE GOAL RASS Protocol Sodium Chloride 10 ml 04/28/20 09:00 05/01/20 20:21 Flush - Normal Saline IVF 10 ml Q12HR AVINASH Administration Sterile Water 10 ml 04/29/20 20:19 05/01/20 07:07 Water For Injection IVP 10 ml Q1H PRN Administration NEEDED FOR RECONSTITUTION Vecuronium [place] 10 mg 04/29/20 20:19 05/01/20 07:07 Norcuron IV 10 mg Q1H PRN Administration SPASM Zinc Sulfate 220 mg 04/29/20 21:00 05/01/20 20:20 Zinc Sulfate PO 220 mg HS AVINASH Administration - Exam General - other findings: intubated, supine ENT: normocephalic atraumatic ENT - other findings: ETT Neck: symmetric, no lymphadenopathy Heart: RRR Respiratory: CTAB Gastrointestinal: soft, non-tender Extremities: no cyanosis, clubbing Psychiatric - other findings: unable to assess Hosp A/P - Plan Assessment: Acute hypoxic resp failure due to COVID Pneumonia -s/p C Plasma -on Steroids -IL 6 inhibitor Dyslipidemis DM2 HTN Obesity BMI 30.1 CAD s/p CABG PVD PLAN: Continue Lantus 25 units daily, dc dextrose from IVF HTN controlled Pt is intubated,supine now
[2020-05-02] MEDS: Propofol 1,000 MG/100 ML VIAL IV PRN ×3 (00:53→23:22)
[2020-05-02] MEDS: niCARdipine 50 MG in Sodium Chloride 0.9% 250 ML 230 ML IVPB SCH ×3 (03:13→19:49)
[2020-05-02] MEDS: Cefepime 1 GM in Sodium Chloride 0.9% 100 ML IVPB SCH ×2 (03:14→15:41)
[2020-05-02 04:03] LABS: Band 3 % (5-11); Hemoglobin 12.4 g/dL (12.0-16.0); Lymphocytes 7 % (21-51); MDiff Complete? YES; Mean Corpuscular HGB CONC 33.6 g/dL (32.0-36.0); Mean Corpuscular Hemoglobin 31.6 pg (27.0-31.0); Mean Corpuscular Volume 94.1 fL (78.0-98.0); Mean Platelet Volume 10.3 fL (7.4-10.4); Monocytes 7 % (0-10); Neutrophil 83 % (42-75); Platelet Count 227 thou/uL (130-400); Platelet Morphology Comment Appears Adequate; RBC Distribution Width 12.3 % (11.5-14.5); Red Blood Cell (RBC) Count 3.93 mill/uL (4.20-5.40)
[2020-05-02 04:06] LABS: Anion Gap 13 mmol/L (10-20); BUN (Urea Nitrogen) 36 mg/dL (9.8-20.1); Calc. Creatinine Clearance 62 mL/min (70-130); Carbon Dioxide 22 mmol/L (23-31); Chloride 112 mmol/L (98-107); Estimated GFR-MDRD 58; Glucose 201 mg/dL (83-110); Magnesium 2.6 mg/dL (1.6-2.6); Potassium 3.8 mmol/L (3.5-5.1); Sodium 143 mmol/L (136-145)
[2020-05-02] MEDS: HumaLOG 300 UNITS/3 ML VIAL SC PRN ×3 (06:26→20:33)
[2020-05-02] MEDS: Gabapentin 100 MG CAP PO SCH ×2 (07:54→19:46)
[2020-05-02] MEDS: Ascorbic Acid 500 mg Chewable Tablet PO SCH (07:54)
[2020-05-02] MEDS: methylPREDNISolone Sod Succ 40 MG VIAL IVP SCH ×2 (07:54→19:46)
[2020-05-02] MEDS: Enoxaparin Sodium 80 MG/0.8 ML SYRINGE SC SCH ×2 (07:55→19:47)
[2020-05-02] MEDS: Insulin Glargine 25 UNITS in Pre-Filled Syringe 1 EACH SC SCH (07:56)
[2020-05-02] MEDS: Sodium Chloride 0.9% 1,000 ML IV SCH ×2 (07:57→23:22)
[2020-05-02] MEDS: Budesonide 0.5 MG/2 ML NEB INH SCH ×2 (08:15→19:23)
[2020-05-02] MEDS: hydrALAZINE 25 MG TAB PO SCH ×2 (08:23→19:46)
[2020-05-02 08:25] LABS: Base Excess (BEa) -0.9 mEq/L (-2.0 to +3.0); CO2 Tension 31.7 mmHg (35.0-45.0); Calcium, Ionized (arterial) 1.14 mmol/L (1.12-1.30); Carboxyhemoglobin (COHb) 0.5 gm% (0.0-3.0); Hemoglobin (Hb) 14.5 g/dL (12.0-16.0); Potassium - ABG Lab 3.63 mmol/L (3.70-5.30); pH, Arterial 7.46 (7.35-7.45)
--- NOTE | 2020-05-02 09:34 | RAD ---
PORTABLE CHEST 1 VIEW: Date: 05/02/2020 Time: 0407 hours HISTORY: Pneumonia, respiratory failure. COMPARISON: Previous day. FINDINGS/IMPRESSION: Endotracheal and nasogastric tubes remain in place. Changes of median sternotomy are again seen. The heart size is stable. Diffuse bilateral infiltrates are again noted. No pneumothoraces or large effus ions are seen. POS: [facility]
[2020-05-02 09:48] LABS: O2 Tension (PaO2), arterial 46.3 mmHg (> 70.0)
[2020-05-02] MEDS: fentaNYL Citrate/PF 2,000 MCG in Sodium Chloride 0.9% 60 ML IV SCH (09:50)
[2020-05-02 09:51] LABS: ALV-art Gradient 234.925 (0-20)
[2020-05-02] MEDS: Ezetimibe 10 MG TAB PO SCH (19:45)
[2020-05-02] MEDS: Zinc Sulfate 220 MG CAP PO SCH (19:46)
[2020-05-02] MEDS: Lorazepam 2 MG/ML VIAL SLOW IVP PRN (19:47)
[2020-05-02] MEDS: Vecuronium 10 MG VIAL IV PRN (19:47)
[2020-05-02] MEDS: Sterile Water 10 ML VIAL IVP PRN (19:47)
--- NOTE | 2020-05-02 20:01 | PRG ---
DATE OF SERVICE: 05/02/2020 SUBJECTIVE: Zaida Chowdhury remains mechanically ventilated. Events over the weekend have been reviewed. OBJECTIVE: VITAL SIGNS: Heart rate is in 80s, respiratory rates in the teens, oximetry is 97%. LUNGS: Unchanged. HEART: Unchanged. ABDOMEN: Unchanged. LABORATORY DATA: White count 10.9, hemoglobin 12.4, platelets 227. Sodium 143, potassium 3.8, chloride 112, bicarb 22, BUN 36, creatinine 1.11. Intake and outputs positive 1200. IMPRESSION: 1. Pneumonia with COVID-19. 2. Respiratory failure. PLAN: Continue supportive care. Blood gas today shows pH 7.46, pCO2 of 31, and pO2 of 46. She remains critically ill, but stable at this point. Critical care time 30 min. Job ID: [id number] MTDD
--- NOTE | 2020-05-02 20:04 | PDOC.HOSPP ---
- Subjective Encounter Date: 05/02/20 Encounter Time: 17:00 Subjective: Pt seen for followup for respiratory failure. Pt intubated, could not complete ROS. - Objective Vital Signs & Weight: Vital Signs (12 hours) Pulse Resp BP Pulse Ox 05/02/20 19:46 88 05/02/20 19:23 88 18 97 05/02/20 19:16 65 141/58 H 97 05/02/20 18:00 18 05/02/20 16:00 20 05/02/20 15:13 82 162/70 H 05/02/20 14:00 22 H 05/02/20 12:00 19 05/02/20 11:13 75 05/02/20 10:00 22 H 05/02/20 08:23 77 145/63 H 05/02/20 08:15 76 23 H 145/63 H 95 05/02/20 08:00 24 H Weight Admit Weight 204 lb Weight 204 lb Most Recent Monitor Data Heart Rate from ECG 67 NIBP 141/58 NIBP BP-Mean 85 Respiration from ECG 18 SpO2 96 I&O: 05/01/20 05/02/20 05/03/20 06:59 06:59 06:59 Intake Total 1585.0 2300.9 1586.5 Output Total 1555 1100 680 Balance 30.0 1200.9 906.5 Result Diagrams: 05/02/20 03:33 05/02/20 03:33 Additional Labs: Accuchecks 05/02/20 05/02/20 05/02/20 15:15 11:16 06:24 POC Glucose 213 H 200 H 243 H 05/01/20 20:37 POC Glucose 263 H Labs and MARs reviewed by me EKG Reviewed by me: Yes (Tele: NSR) Hospitalist ROS - Review of Systems ROS unobtainable: due to endotracheal tube - Medication Medications: Active Medications Generic Name Dose Route Start Last Admin Trade Name Freq PRN Reason Stop Dose Admin Acetaminophen 650 mg 04/28/20 02:12 04/29/20 12:40 Tylenol PO 650 mg Q4H PRN Administration Headache/Fever or Pain Ascorbic Acid 1,000 mg 04/30/20 09:00 05/02/20 07:54 Vitamin C PO 1,000 mg DAILY AVINASH Administration Budesonide 0.5 mg 04/30/20 18:30 05/02/20 19:23 Pulmicort Neb Solution INH 0.5 mg BID-RT AVINASH Administration Ezetimibe 10 mg 04/27/20 21:00 05/02/20 19:45 Zetia PO 10 mg HS AVINASH Administration Enoxaparin Sodium 80 mg 04/29/20 21:00 05/02/20 19:47 Lovenox SC 80 mg 0900,2100 AVINASH Administration Gabapentin 100 mg 04/27/20 21:00 05/02/20 19:46 Neurontin PO 100 mg BID AVINASH Administration Hydralazine HCl 50 mg 04/27/20 21:00 05/02/20 19:46 Apresoline PO 50 mg BID AVINASH Administration Hydralazine HCl 5 mg 04/27/20 20:42 04/28/20 23:04 Apresoline SLOW IVP 5 mg Q4H PRN Administration Hypertension Doxycycline Hyclate 100 mg/ 100 mls @ 100 mls/hr 04/29/20 21:00 05/02/20 19: 49 Sodium Chloride IVPB 100 mls Q12HR AVINASH Administration Nicardipine HCl 50 mg/ Sodium 250 mls @ 0 mls/hr 04/29/20 13:00 05/02/20 19: 49 Chloride IVPB 250 mls INF AVINASH Administration Protocol Titrate Cefepime HCl 1 gm/ Sodium 100 mls @ 200 mls/hr 04/29/20 16:00 05/02/20 15:41 Chloride IVPB 100 mls 0400,1600 AVINASH Administration Fentanyl Citrate 2,000 mcg/ 100 mls @ 0 mls/hr 04/29/20 20:20 05/02/20 09:50 Sodium Chloride IV 05/29/20 20:20 100 mls INF AVINASH Administration Protocol Per Protocol Insulin Glargine 25 units/ 0.25 mls @ 0 mls/hr 05/01/20 09:00 05/02/20 07:56 Miscellaneous Medication SC 0.25 mls QAM AVINASH Administration Sodium Chloride 1,000 mls @ 75 mls/hr 05/01/20 18:15 05/02/20 07:57 Normal Saline 0.9% IV 1,000 mls .[id number] AVINASH Administration Insulin Human Lispro 0 units 04/28/20 18:14 05/02/20 07:56 Humalog SC 2 unit .BEDTIME SLIDING SC PRN Administration Bedtime Correctional Scale Insulin Human Lispro 0 units 04/30/20 20:17 05/02/20 06:26 Humalog SC 4 unit .MODERATE SLIDING SC PRN Administration Moderate Correctional Scale Isosorbide Mononitrate 60 mg 04/28/20 09:00 05/02/20 07:54 Imdur PO 60 mg DAILY AVINASH Administration Lorazepam 2 mg 04/29/20 20:20 05/02/20 19:47 Ativan SLOW IVP 05/29/20 20:20 2 mg Q1H PRN Administration Breakthrough agitation Methylprednisolone Sodium Succinate 60 mg 04/29/20 21:00 05/02/20 19:46 Solu-Medrol IVP 60 mg Q12HR AVINASH Administration Pantoprazole Sodium 40 mg 04/28/20 09:00 05/02/20 07:54 Protonix PO 40 mg DAILY AVINASH Administration Propofol 1,000 mg 04/29/20 20:20 05/02/20 07:56 Diprivan IV 05/29/20 20:20 1,000 mg INF PRN Administration TO ACHIEVE GOAL RASS Protocol Sodium Chloride 10 ml 04/28/20 09:00 05/02/20 07:55 Flush - Normal Saline IVF 10 ml Q12HR AVINASH Administration Sterile Water 10 ml 04/29/20 20:19 05/02/20 19:47 Water For Injection IVP 10 ml Q1H PRN Administration NEEDED FOR RECONSTITUTION Vecuronium [place] 10 mg 04/29/20 20:19 05/02/20 19:47 Norcuron IV 10 mg Q1H PRN Administration SPASM Zinc Sulfate 220 mg 04/29/20 21:00 05/02/20 19:46 Zinc Sulfate PO 220 mg HS AVINASH Administration - Exam General - other findings: Intubated ENT: moist mucosa Respiratory: CTAB Gastrointestinal: soft, normal bowel sounds Neurological - other findings: Unable to assess Psychiatric - other findings: Unable to assess Hosp A/P - Plan Assessment: Acute hypoxic resp failure due to COVID Pneumonia -s/p Convalescent Plasma -on Steroids -IL 6 inhibitor DM2 HTN Dyslipidemia Obesity BMI 30.1 CAD s/p CABG PVD PLAN: Start tube feeds. HTN controlled Pt is intubated,supine Increase lantus to 30 units QAM
[2020-05-03] MEDS: Cefepime 1 GM in Sodium Chloride 0.9% 100 ML IVPB SCH ×2 (02:36→21:27)
[2020-05-03] MEDS: niCARdipine 50 MG in Sodium Chloride 0.9% 250 ML 230 ML IVPB SCH ×2 (02:37→11:28)
[2020-05-03 03:34] LABS: Phosphorus 2.8 mg/dL (2.3-4.7)
[2020-05-03 03:39] LABS: Anion Gap 14 mmol/L (10-20); BUN (Urea Nitrogen) 34 mg/dL (9.8-20.1); CRP (Inflammatory) 2.46 mg/dL (= or < 0.5); Calc. Creatinine Clearance 70 mL/min (70-130); Carbon Dioxide 20 mmol/L (23-31); Chloride 113 mmol/L (98-107); Estimated GFR-MDRD 67; Glucose 273 mg/dL (83-110); Magnesium 2.7 mg/dL (1.6-2.6); Potassium 3.8 mmol/L (3.5-5.1); Sodium 143 mmol/L (136-145)
[2020-05-03 03:49] LABS: Hemoglobin 12.6 g/dL (12.0-16.0); Lymphocytes 9 % (21-51); MDiff Complete? YES; Mean Corpuscular Hemoglobin 31.4 pg (27.0-31.0); Mean Corpuscular Volume 95.2 fL (78.0-98.0); Mean Platelet Volume 9.6 fL (7.4-10.4); Monocytes 6 % (0-10); Neutrophil 85 % (42-75); Platelet Count 270 thou/uL (130-400); Platelet Morphology Comment Appears Adequate; RBC Distribution Width 12.3 % (11.5-14.5); RBC Morphology Normal; Red Blood Cell (RBC) Count 4.02 mill/uL (4.20-5.40); White Blood Cell (WBC) Count 11.6 thou/uL (4.8-10.8)
[2020-05-03] MEDS: Propofol 1,000 MG/100 ML VIAL IV PRN ×2 (05:22→11:28)
[2020-05-03] MEDS: HumaLOG 300 UNITS/3 ML VIAL SC PRN ×2 (05:39→11:57)
[2020-05-03] MEDS: fentaNYL Citrate/PF 2,000 MCG in Sodium Chloride 0.9% 60 ML IV SCH (05:53)
[2020-05-03 08:01] LABS: Actual Bicarbonate (HCO3a) 20.9 mEq/L (22-28); Base Excess (BEa) -2.5 mEq/L (-2.0 to +3.0); CO2 Tension 32.2 mmHg (35.0-45.0); Calcium, Ionized (arterial) 1.13 mmol/L (1.12-1.30); Potassium - ABG Lab 3.64 mmol/L (3.70-5.30); pH, Arterial 7.43 (7.35-7.45)
[2020-05-03] MEDS: Budesonide 0.5 MG/2 ML NEB INH SCH ×2 (08:16→19:26)
[2020-05-03] MEDS: Lorazepam 2 MG/ML VIAL SLOW IVP PRN ×3 (08:22→22:05)
[2020-05-03 08:23] LABS: O2 Tension (PaO2), arterial 52.4 mmHg (> 70.0)
[2020-05-03] MEDS: Ascorbic Acid 500 mg Chewable Tablet PO SCH (08:33)
[2020-05-03] MEDS: methylPREDNISolone Sod Succ 40 MG VIAL IVP SCH ×2 (08:33→22:18)
[2020-05-03] MEDS: hydrALAZINE 25 MG TAB PO SCH ×2 (08:34→21:27)
[2020-05-03] MEDS: Gabapentin 100 MG CAP PO SCH ×2 (08:34→21:27)
[2020-05-03] MEDS: Sodium Chloride 0.9% 1,000 ML IV SCH ×4 (08:45→21:00)
[2020-05-03] MEDS: Enoxaparin Sodium 80 MG/0.8 ML SYRINGE SC SCH ×2 (08:47→21:27)
--- NOTE | 2020-05-03 08:49 | RAD ---
RADIOGRAPH CHEST 1 VIEW: Date: 05/03/2020. Time: 5:05 a.m. HISTORY: A 79-year-old female with pneumonia. COMPARISON: 05/02/2020, 7:04 a.m. FINDINGS: Endotracheal tube and esophagogastric tube remain. The previously demonstrated diffuse interstitial- alveolar infiltrates bilaterally have improved. No pneumothorax identified. IMPRESSION: Interval improvement in diffuse bilateral infiltrates. NEAHL [] POS: [facility]
[2020-05-03] MEDS ORDERED: Insulin Glargine 30 UNITS in Pre-Filled Syringe 1 EACH SC SCH (09:00)
--- NOTE | 2020-05-03 19:03 | PDOC.HOSPP ---
- Subjective Encounter Date: 05/03/20 Encounter Time: 13:00 Subjective: Pt seen for followup re: acute hypoxic respiratory failure. Pt is intubated. - Objective Vital Signs & Weight: Vital Signs (12 hours) Temp Pulse Resp BP Pulse Ox 05/03/20 18:00 26 H 05/03/20 16:00 98.6 F 19 05/03/20 15:17 86 132/61 05/03/20 14:00 21 H 05/03/20 12:00 98.8 F 22 H 05/03/20 10:59 81 129/65 05/03/20 10:00 22 H 05/03/20 08:34 91 160/77 H 05/03/20 08:00 22 H 96 05/03/20 07:30 95 165/83 H Weight Admit Weight 204 lb Weight 204 lb Most Recent Monitor Data Heart Rate from ECG 82 NIBP 141/70 NIBP BP-Mean 93 Respiration from ECG 11 SpO2 95 I&O: 05/02/20 05/03/20 05/04/20 06:59 06:59 06:59 Intake Total 2300.9 3033.0 1631.4 Output Total 1100 1345 800 Balance 1200.9 1688.0 831.4 Result Diagrams: 05/03/20 02:48 05/03/20 02:48 Additional Labs: Accuchecks 05/03/20 05/03/20 05/03/20 18:31 16:58 16:54 POC Glucose 124 H 49 L* 47 L* 05/03/20 05/03/20 05/02/20 11:47 05:31 20:19 POC Glucose 213 H 256 H 202 H Labs and MARs reviewed by me EKG Reviewed by me: Yes (Tele; NSR) Hospitalist ROS - Review of Systems ROS unobtainable: due to endotracheal tube - Medication Medications: Active Medications Generic Name Dose Route Start Last Admin Trade Name Freq PRN Reason Stop Dose Admin Acetaminophen 650 mg 04/28/20 02:12 04/29/20 12:40 Tylenol PO 650 mg Q4H PRN Administration Headache/Fever or Pain Ascorbic Acid 1,000 mg 04/30/20 09:00 05/03/20 08:33 Vitamin C PO 1,000 mg DAILY AVINASH Administration Budesonide 0.5 mg 04/30/20 18:30 05/03/20 08:16 Pulmicort Neb Solution INH 0.5 mg BID-RT AVINASH Administration Dextrose/Water 25 gm 04/27/20 20:35 05/03/20 16:58 Dextrose 50% SLOW IVP 25 gm PRN PRN Administration Hypoglycemia Ezetimibe 10 mg 04/27/20 21:00 05/02/20 19:45 Zetia PO 10 mg HS AVINASH Administration Enoxaparin Sodium 80 mg 04/29/20 21:00 05/03/20 08:47 Lovenox SC 80 mg 0900,2100 AVINASH Administration Gabapentin 100 mg 04/27/20 21:00 05/03/20 08:34 Neurontin PO 100 mg BID AVINASH Administration Hydralazine HCl 50 mg 04/27/20 21:00 05/03/20 08:34 Apresoline PO 50 mg BID AVINASH Administration Hydralazine HCl 5 mg 04/27/20 20:42 04/28/20 23:04 Apresoline SLOW IVP 5 mg Q4H PRN Administration Hypertension Doxycycline Hyclate 100 mg/ 100 mls @ 100 mls/hr 04/29/20 21:00 05/03/20 08: 51 Sodium Chloride IVPB 100 mls Q12HR AVINASH Administration Nicardipine HCl 50 mg/ Sodium 250 mls @ 0 mls/hr 04/29/20 13:00 05/03/20 11: 28 Chloride IVPB 250 mls INF AVINASH Administration Protocol Titrate Fentanyl Citrate 2,000 mcg/ 100 mls @ 0 mls/hr 04/29/20 20:20 05/03/20 05:53 Sodium Chloride IV 05/29/20 20:20 100 mls INF AVINASH Administration Protocol Per Protocol Sodium Chloride 1,000 mls @ 75 mls/hr 05/01/20 18:45 05/03/20 08:47 Normal Saline 0.9% IV 1,000 mls .[id number] AVINASH Administration Insulin Glargine 30 units/ 0.3 mls @ 0 mls/hr 05/03/20 09:00 05/03/20 08:52 Miscellaneous Medication SC 0.3 mls QAM AVINASH Administration Insulin Human Lispro 0 units 04/28/20 18:14 05/03/20 11:57 Humalog SC 2 unit .BEDTIME SLIDING SC PRN Administration Bedtime Correctional Scale Insulin Human Lispro 0 units 04/30/20 20:17 05/03/20 05:39 Humalog SC 6 unit .MODERATE SLIDING SC PRN Administration Moderate Correctional Scale Isosorbide Mononitrate 60 mg 04/28/20 09:00 05/03/20 08:34 Imdur PO 60 mg DAILY AVINASH Administration Lorazepam 2 mg 04/29/20 20:20 05/03/20 11:33 Ativan SLOW IVP 05/29/20 20:20 2 mg Q1H PRN Administration Breakthrough agitation Methylprednisolone Sodium Succinate 60 mg 04/29/20 21:00 05/03/20 08:33 Solu-Medrol IVP 60 mg Q12HR AVINASH Administration Pantoprazole Sodium 40 mg 04/28/20 09:00 05/03/20 08:34 Protonix PO 40 mg DAILY AVINASH Administration Propofol 1,000 mg 04/29/20 20:20 05/03/20 11:28 Diprivan IV 05/29/20 20:20 1,000 mg INF PRN Administration TO ACHIEVE GOAL RASS Protocol Sodium Chloride 10 ml 04/28/20 09:00 05/03/20 08:46 Flush - Normal Saline IVF 10 ml Q12HR AVINASH Administration Sterile Water 10 ml 04/29/20 20:19 05/02/20 19:47 Water For Injection IVP 10 ml Q1H PRN Administration NEEDED FOR RECONSTITUTION Vecuronium [place] 10 mg 04/29/20 20:19 05/02/20 19:47 Norcuron IV 10 mg Q1H PRN Administration SPASM Zinc Sulfate 220 mg 04/29/20 21:00 05/02/20 19:46 Zinc Sulfate PO 220 mg HS AVINASH Administration - Exam General - other findings: Obese Eye: anicteric sclera ENT: moist mucosa Neck: no thyromegaly, no lymphadenopathy Heart: RRR, no rubs Respiratory: CTAB Gastrointestinal: soft Extremities: no cyanosis Psychiatric - other findings: Unable to assess Hosp A/P - Plan Assessment: Acute hypoxic resp failure due to COVID Pneumonia DM2 HTN Dyslipidemia Obesity BMI 30.1 CAD s/p CABG PVD PLAN: -s/p Convalescent Plasma -on Steroids -IL 6 inhibitorStart tube feeds. -HTN controlled -Hypoglycemic episode, decrease lantus to 25 units QAM
--- NOTE | 2020-05-03 20:14 | PRG ---
DATE OF SERVICE: 05/03/2020 SUBJECTIVE: Ms. Chowdhury was clinically unchanged. She is sedated for ventilation. OBJECTIVE: VITAL SIGNS: Heart rates in the 90s, oximetry is 94, and blood pressure is 155/76. LUNGS: Unchanged. HEART: Unchanged. ABDOMEN: Unchanged. LABORATORY DATA: White count 11.6, hemoglobin 12.6, and platelets 270. The pH 7.43, CO2 of 32, PO2 of 52, FiO2 is down to 45% over the last few days. IMPRESSION: Pneumonia with COVID-19, hopefully clinically stabilizing. Lung compliance still would not be conducive to extubation. We will continue to follow. CRITICAL CARE TIME: 30 minutes. Job ID: [id number]
[2020-05-03] MEDS: Ezetimibe 10 MG TAB PO SCH (21:27)
[2020-05-03] MEDS: Zinc Sulfate 220 MG CAP PO SCH (21:28)
[2020-05-03] MEDS: methylPREDNISolone Sod Succ/PF 125 MG/2 ML VIAL IVP SCH (22:05)
[2020-05-04] MEDS: Sodium Chloride 0.9% 1,000 ML IV SCH ×2 (01:40→22:06)
[2020-05-04] MEDS: Propofol 1,000 MG/100 ML VIAL IV PRN ×3 (01:41→18:46)
[2020-05-04] MEDS: fentaNYL Citrate/PF 2,000 MCG in Sodium Chloride 0.9% 60 ML IV SCH ×2 (01:42→21:23)
[2020-05-04] MEDS: HumaLOG 300 UNITS/3 ML VIAL SC PRN ×3 (01:43→21:48)
[2020-05-04 04:27] LABS: Anion Gap 13 mmol/L (10-20); BUN (Urea Nitrogen) 40 mg/dL (9.8-20.1); Calc. Creatinine Clearance 67 mL/min (70-130); Calcium 7.6 mg/dL (7.8-10.44); Carbon Dioxide 19 mmol/L (23-31); Chloride 117 mmol/L (98-107); Estimated GFR-MDRD 63; Glucose 347 mg/dL (83-110); Magnesium 2.6 mg/dL (1.6-2.6); Potassium 3.6 mmol/L (3.5-5.1); Sodium 145 mmol/L (136-145)
[2020-05-04 04:30] LABS: Band 5 % (5-11); Hemoglobin 11.7 g/dL (12.0-16.0); Lymphocytes 5 % (21-51); MDiff Complete? YES; Mean Corpuscular HGB CONC 32.5 g/dL (32.0-36.0); Mean Corpuscular Volume 95.4 fL (78.0-98.0); Mean Platelet Volume 10.1 fL (7.4-10.4); Monocytes 5 % (0-10); Neutrophil 85 % (42-75); Nucleated RBC 1 % (0); Platelet Count 278 thou/uL (130-400); Platelet Morphology Comment Appears Adequate; RBC Distribution Width 12.5 % (11.5-14.5); Red Blood Cell (RBC) Count 3.79 mill/uL (4.20-5.40); White Blood Cell (WBC) Count 12.7 thou/uL (4.8-10.8)
--- NOTE | 2020-05-04 07:57 | RAD ---
EXAM: Single view of the chest HISTORY: Pneumonia COMPARISON: 05/03/2020 FINDINGS: Single view of the chest shows a normal sized cardiomediastinal silhouette. The patient is status post sternotomy. The endotracheal tube is unchanged in position. The NG tube has been withdrawn with its tip in the esophagus.. Retrocardiac opacity may represent atelectasis or an infil trate. The bones are unremarkable. IMPRESSION: Malpositioned NG tube in the esophagus should be advanced completely into the stomach.
[2020-05-04] MEDS: Budesonide 0.5 MG/2 ML NEB INH SCH ×2 (08:38→21:59)
[2020-05-04 08:41] LABS: Actual Bicarbonate (HCO3a) 16.5 mEq/L (22-28); Base Excess (BEa) -7.5 mEq/L (-2.0 to +3.0); CO2 Tension 29.5 mmHg (35.0-45.0); Calcium, Ionized (arterial) 1.19 mmol/L (1.12-1.30); Carboxyhemoglobin (COHb) 0.3 gm% (0.0-3.0); Hemoglobin (Hb) 12.5 g/dL (12.0-16.0); Potassium - ABG Lab 3.82 mmol/L (3.70-5.30); pH, Arterial 7.37 (7.35-7.45)
[2020-05-04 08:48] LABS: O2 Tension (PaO2), arterial 56.2 mmHg (> 70.0)
[2020-05-04 08:49] LABS: Puncture Site RRA
[2020-05-04 08:50] LABS: ALV-art Gradient 263.425 (0-20)
[2020-05-04] MEDS ORDERED: Insulin Glargine 20 UNITS in Pre-Filled Syringe 1 EACH SC SCH (09:00)
[2020-05-04] MEDS: Cefepime 1 GM in Sodium Chloride 0.9% 100 ML IVPB SCH ×2 (09:29→21:05)
[2020-05-04] MEDS: Ascorbic Acid 500 mg Chewable Tablet PO SCH (09:29)
[2020-05-04] MEDS: methylPREDNISolone Sod Succ/PF 125 MG/2 ML VIAL IVP SCH ×2 (09:30→21:08)
[2020-05-04] MEDS: Gabapentin 100 MG CAP PO SCH ×2 (09:30→21:07)
[2020-05-04] MEDS: Enoxaparin Sodium 80 MG/0.8 ML SYRINGE SC SCH ×2 (09:31→21:06)
[2020-05-04] MEDS: hydrALAZINE 25 MG TAB PO SCH ×2 (09:31→21:07)
[2020-05-04] MEDS: Lorazepam 2 MG/ML VIAL SLOW IVP PRN (09:37)
[2020-05-04] MEDS ORDERED: Insulin Glargine 5 UNITS in Pre-Filled Syringe SC SCH ×2 (14:15→19:15)
--- NOTE | 2020-05-04 15:00 | PRG ---
DATE OF SERVICE: 05/04/2020 SUBJECTIVE: Zaida Chowdhury remains mechanically ventilated. OBJECTIVE: VITAL SIGNS: Respiratory rates in the 20s, FiO2 is 50% today. Heart rate is 80, blood pressure 153/71. LUNGS: Unchanged. HEART: Unchanged. ABDOMEN: Unchanged. LABORATORY DATA: White count 12.7, hemoglobin 11.7, platelets 278. Electrolytes are unremarkable. BUN 40, creatinine 1.03. Blood gas, pH 7.37, CO2 of 29, PO2 of 56. IMPRESSION: COVID pneumonia, slowly improving. Chest radiograph still shows diffuse increased interstitial markings, although looking back several days, her radiograph appears to have improved slightly. Continue with current care. Critical care time 30 min. Job ID: [id number] MTDD
--- NOTE | 2020-05-04 19:03 | PDOC.HOSPP ---
- Subjective Encounter Date: 05/04/20 Encounter Time: 19:02 Subjective: Pt seen for followup for respiratory failure. Pt is intubated. - Objective Vital Signs & Weight: Vital Signs (12 hours) Temp Pulse Resp BP Pulse Ox 05/04/20 18:52 83 05/04/20 16:00 98.5 F 23 H 05/04/20 15:22 81 05/04/20 14:00 24 H 05/04/20 12:00 98.6 F 05/04/20 10:58 81 149/80 H 05/04/20 09:31 76 131/67 05/04/20 08:20 76 131/67 05/04/20 08:00 98.4 F 21 H 05/04/20 07:48 96 Weight Admit Weight 204 lb Weight 204 lb Most Recent Monitor Data Heart Rate from ECG 81 NIBP 147/73 NIBP BP-Mean 97 Respiration from ECG 18 SpO2 95 I&O: 05/03/20 05/04/20 05/05/20 06:59 06:59 06:59 Intake Total 3033.0 3217.9 437.5 Output Total 1345 1770 750 Balance 1688.0 1447.9 -312.5 Result Diagrams: 05/04/20 03:11 05/04/20 03:11 Additional Labs: Accuchecks 05/04/20 05/04/20 05/04/20 17:56 13:02 01:32 POC Glucose 279 H 306 H 336 H Labs and MARs reviewed by me EKG Reviewed by me: Yes (Tele: NSR) Hospitalist ROS - Review of Systems ROS unobtainable: due to endotracheal tube - Medication Medications: Active Medications Generic Name Dose Route Start Last Admin Trade Name Freq PRN Reason Stop Dose Admin Acetaminophen 650 mg 04/28/20 02:12 04/29/20 12:40 Tylenol PO 650 mg Q4H PRN Administration Headache/Fever or Pain Ascorbic Acid 1,000 mg 04/30/20 09:00 05/04/20 09:29 Vitamin C PO 1,000 mg DAILY AVINASH Administration Budesonide 0.5 mg 04/30/20 18:30 05/04/20 08:38 Pulmicort Neb Solution INH 0.5 mg BID-RT AVINASH Administration Dextrose/Water 25 gm 04/27/20 20:35 05/03/20 16:58 Dextrose 50% SLOW IVP 25 gm PRN PRN Administration Hypoglycemia Ezetimibe 10 mg 04/27/20 21:00 05/03/20 21:27 Zetia PO 10 mg HS AVINASH Administration Enoxaparin Sodium 80 mg 04/29/20 21:00 05/04/20 09:31 Lovenox SC 80 mg 0900,2100 AVINASH Administration Gabapentin 100 mg 04/27/20 21:00 05/04/20 09:30 Neurontin PO 100 mg BID AVINASH Administration Hydralazine HCl 50 mg 04/27/20 21:00 05/04/20 09:31 Apresoline PO 50 mg BID AVINASH Administration Hydralazine HCl 5 mg 04/27/20 20:42 04/28/20 23:04 Apresoline SLOW IVP 5 mg Q4H PRN Administration Hypertension Doxycycline Hyclate 100 mg/ 100 mls @ 100 mls/hr 04/29/20 21:00 05/04/20 09: 28 Sodium Chloride IVPB 100 mls Q12HR AVINASH Administration Nicardipine HCl 50 mg/ Sodium 250 mls @ 0 mls/hr 04/29/20 13:00 05/03/20 11: 28 Chloride IVPB 250 mls INF AVINASH Administration Protocol Titrate Fentanyl Citrate 2,000 mcg/ 100 mls @ 0 mls/hr 04/29/20 20:20 05/04/20 01:42 Sodium Chloride IV 05/29/20 20:20 100 mls INF AVINASH Administration Protocol Per Protocol Sodium Chloride 1,000 mls @ 75 mls/hr 05/01/20 18:45 05/04/20 01:40 Normal Saline 0.9% IV 1,000 mls .[id number] AVINASH Administration Cefepime HCl 1 gm/ Sodium 100 mls @ 200 mls/hr 05/03/20 21:00 05/04/20 09:29 Chloride IVPB 100 mls 899,2099 AVINASH Administration Insulin Human Lispro 0 units 04/28/20 18:14 05/04/20 01:43 Humalog SC 4 unit .BEDTIME SLIDING SC PRN Administration Bedtime Correctional Scale Insulin Human Lispro 0 units 04/30/20 20:17 05/04/20 18:49 Humalog SC 6 unit .MODERATE SLIDING SC PRN Administration Moderate Correctional Scale Isosorbide Mononitrate 60 mg 04/28/20 09:00 05/04/20 09:34 Imdur PO 60 mg DAILY AVINASH Administration Lorazepam 2 mg 04/29/20 20:20 05/04/20 09:37 Ativan SLOW IVP 05/29/20 20:20 2 mg Q1H PRN Administration Breakthrough agitation Methylprednisolone Sodium Succinate 60 mg 05/03/20 21:00 05/04/20 09:30 Solu-Medrol IVP 60 mg Q12HR AVINASH Administration Pantoprazole Sodium 40 mg 04/28/20 09:00 05/04/20 09:31 Protonix PO 40 mg DAILY AVINASH Administration Propofol 1,000 mg 04/29/20 20:20 05/04/20 18:46 Diprivan IV 05/29/20 20:20 1,000 mg INF PRN Administration TO ACHIEVE GOAL RASS Protocol Sodium Chloride 10 ml 04/28/20 09:00 05/04/20 09:33 Flush - Normal Saline IVF 10 ml Q12HR AVINASH Administration Sterile Water 10 ml 04/29/20 20:19 05/02/20 19:47 Water For Injection IVP 10 ml Q1H PRN Administration NEEDED FOR RECONSTITUTION Vecuronium [place] 10 mg 04/29/20 20:19 05/02/20 19:47 Norcuron IV 10 mg Q1H PRN Administration SPASM Zinc Sulfate 220 mg 04/29/20 21:00 05/03/20 21:28 Zinc Sulfate PO 220 mg HS AVINASH Administration - Exam General - other findings: Intubated Eye: anicteric sclera ENT: normocephalic atraumatic Neck: no thyromegaly Heart: RRR Respiratory: CTAB Gastrointestinal: soft Psychiatric - other findings: Unable to assess Hosp A/P - Plan Assessment: Acute hypoxic resp failure due to COVID Pneumonia DM2 HTN Dyslipidemia Obesity BMI 30.1 CAD s/p CABG PVD PLAN: -continue Steroids -IL 6 inhibitor -tube feeds. -s/p Convalescent Plasma -HTN controlled -Increase lantus to 30 units HS
[2020-05-04] MEDS: Zinc Sulfate 220 MG CAP PO SCH (21:09)
[2020-05-04] MEDS: Ezetimibe 10 MG TAB PO SCH (21:09)
[2020-05-04] MEDS: hydrALAZINE 20 MG/ML VIAL SLOW IVP PRN (22:04)
[2020-05-05] MEDS: niCARdipine 50 MG in Sodium Chloride 0.9% 250 ML 230 ML IVPB SCH ×3 (00:21→21:33)
[2020-05-05] MEDS: Propofol 1,000 MG/100 ML VIAL IV PRN ×2 (00:21→21:34)
[2020-05-05 04:04] LABS: Anion Gap 13 mmol/L (10-20); BUN (Urea Nitrogen) 41 mg/dL (9.8-20.1); Calc. Creatinine Clearance 72 mL/min (70-130); Carbon Dioxide 20 mmol/L (23-31); Chloride 121 mmol/L (98-107); Estimated GFR-MDRD 68; Glucose 282 mg/dL (83-110); Potassium 3.9 mmol/L (3.5-5.1); Sodium 150 mmol/L (136-145)
[2020-05-05 04:06] LABS: Phosphorus 2.9 mg/dL (2.3-4.7)
[2020-05-05 04:15] LABS: Hemoglobin 11.9 g/dL (12.0-16.0); Hypochromia SLIGHT = 6-15 cells (100X) (0-5/hpf); Lymphocytes 5 % (21-51); MDiff Complete? YES; Mean Corpuscular HGB CONC 31.7 g/dL (32.0-36.0); Mean Corpuscular Hemoglobin 30.1 pg (27.0-31.0); Mean Corpuscular Volume 94.9 fL (78.0-98.0); Mean Platelet Volume 9.8 fL (7.4-10.4); Monocytes 5 % (0-10); Neutrophil 90 % (42-75); Platelet Count 286 thou/uL (130-400); Platelet Morphology Comment Appears Adequate; RBC Distribution Width 12.6 % (11.5-14.5); Red Blood Cell (RBC) Count 3.94 mill/uL (4.20-5.40); White Blood Cell (WBC) Count 14.7 thou/uL (4.8-10.8)
[2020-05-05] MEDS: Sodium Chloride 0.9% 1,000 ML IV SCH ×2 (04:53→16:23)
[2020-05-05] MEDS: HumaLOG 300 UNITS/3 ML VIAL SC PRN ×3 (06:41→21:46)
[2020-05-05] MEDS: Budesonide 0.5 MG/2 ML NEB INH SCH ×2 (07:49→19:14)
--- NOTE | 2020-05-05 07:56 | RAD ---
XR Chest 1 View Portable History: Pneumonia Comparison: Radiograph prior day Findings: Multifocal airspace opacities are similar given differences in technique. Endotracheal tube tip sits at the level of clavicles. Enteric tube tip below diaphragm although out of field of view. Multiple midline sternotomy wires. Heart size mildly enlarged. Impression: Similar examination of the chest without significant improvement in lung aeration.
[2020-05-05 08:24] LABS: Actual Bicarbonate (HCO3a) 20.1 mEq/L (22-28); Base Excess (BEa) -3.5 mEq/L (-2.0 to +3.0); CO2 Tension 31.7 mmHg (35.0-45.0); Calcium, Ionized (arterial) 1.19 mmol/L (1.12-1.30); Carboxyhemoglobin (COHb) 0.3 gm% (0.0-3.0); Potassium - ABG Lab 3.82 mmol/L (3.70-5.30); pH, Arterial 7.42 (7.35-7.45)
[2020-05-05 08:28] LABS: O2 Tension (PaO2), arterial 51.7 mmHg (> 70.0); Puncture Site LRA
[2020-05-05 08:29] LABS: ALV-art Gradient 265.175 (0-20)
[2020-05-05] MEDS: Cefepime 1 GM in Sodium Chloride 0.9% 100 ML IVPB SCH ×2 (08:58→21:35)
[2020-05-05] MEDS: Enoxaparin Sodium 80 MG/0.8 ML SYRINGE SC SCH ×2 (08:59→21:35)
[2020-05-05] MEDS: Ascorbic Acid 500 mg Chewable Tablet PO SCH (08:59)
[2020-05-05] MEDS: hydrALAZINE 25 MG TAB PO SCH ×2 (08:59→21:36)
[2020-05-05] MEDS: Gabapentin 100 MG CAP PO SCH ×2 (08:59→21:37)
[2020-05-05] MEDS ORDERED: Insulin Glargine 30 UNITS in Pre-Filled Syringe SC SCH (09:00)
[2020-05-05] MEDS: methylPREDNISolone Sod Succ/PF 125 MG/2 ML VIAL IVP SCH ×2 (09:00→21:37)
[2020-05-05] MEDS ORDERED: Insulin Glargine 25 UNITS in Pre-Filled Syringe SC SCH (09:00)
--- NOTE | 2020-05-05 19:50 | PDOC.HOSPP ---
- Subjective Encounter Date: 05/05/20 Encounter Time: 17:20 Subjective: Pt seen for followup for hypoxic respiratory failure. Intubated, more reponsive to verbal stimuli. - Objective Vital Signs & Weight: Vital Signs (12 hours) Pulse Resp BP Pulse Ox 05/05/20 19:14 99 05/05/20 18:00 23 H 05/05/20 16:00 24 H 05/05/20 14:27 99 05/05/20 14:00 28 H 05/05/20 12:00 27 H 05/05/20 10:49 108 H 05/05/20 10:00 25 H 05/05/20 08:59 97 154/72 H 05/05/20 08:00 23 H 100 05/05/20 07:59 97 155/76 H Weight Admit Weight 204 lb Weight 204 lb Most Recent Monitor Data Heart Rate from ECG 97 NIBP 165/85 NIBP BP-Mean 111 Respiration from ECG 25 SpO2 98 I&O: 05/04/20 05/05/20 05/06/20 06:59 06:59 06:59 Intake Total 3217.9 3111.1 1875 Output Total 1770 1650 1060 Balance 1447.9 1461.1 815 Result Diagrams: 05/05/20 03:05 05/05/20 03:30 Additional Labs: Accuchecks 05/05/20 05/05/20 05/04/20 12:14 06:20 21:36 POC Glucose 287 H 245 H 256 H Labs and MARs reviewed by me EKG Reviewed by me: Yes (Tele: NSR) Hospitalist ROS - Review of Systems ROS unobtainable: due to endotracheal tube - Medication Medications: Active Medications Generic Name Dose Route Start Last Admin Trade Name Freq PRN Reason Stop Dose Admin Acetaminophen 650 mg 04/28/20 02:12 04/29/20 12:40 Tylenol PO 650 mg Q4H PRN Administration Headache/Fever or Pain Ascorbic Acid 1,000 mg 04/30/20 09:00 05/05/20 08:59 Vitamin C PO 1,000 mg DAILY AVINASH Administration Budesonide 0.5 mg 04/30/20 18:30 05/05/20 19:14 Pulmicort Neb Solution INH 0.5 mg BID-RT AVINASH Administration Dextrose/Water 25 gm 04/27/20 20:35 05/03/20 16:58 Dextrose 50% SLOW IVP 25 gm PRN PRN Administration Hypoglycemia Ezetimibe 10 mg 04/27/20 21:00 05/04/20 21:09 Zetia PO 10 mg HS AVINASH Administration Enoxaparin Sodium 80 mg 04/29/20 21:00 05/05/20 08:59 Lovenox SC 80 mg 0900,2100 AVINASH Administration Gabapentin 100 mg 04/27/20 21:00 05/05/20 08:59 Neurontin PO 100 mg BID AVINASH Administration Hydralazine HCl 50 mg 04/27/20 21:00 05/05/20 08:59 Apresoline PO 50 mg BID AVINASH Administration Hydralazine HCl 5 mg 04/27/20 20:42 05/04/20 22:04 Apresoline SLOW IVP 5 mg Q4H PRN Administration Hypertension Doxycycline Hyclate 100 mg/ 100 mls @ 100 mls/hr 04/29/20 21:00 05/05/20 08: 59 Sodium Chloride IVPB 100 mls Q12HR AVINASH Administration Nicardipine HCl 50 mg/ Sodium 250 mls @ 0 mls/hr 04/29/20 13:00 05/05/20 08: 06 Chloride IVPB 250 mls INF AVINASH Administration Protocol Titrate Fentanyl Citrate 2,000 mcg/ 100 mls @ 0 mls/hr 04/29/20 20:20 05/04/20 21:23 Sodium Chloride IV 05/29/20 20:20 100 mls INF AVINASH Administration Protocol Per Protocol Sodium Chloride 1,000 mls @ 75 mls/hr 05/01/20 18:45 05/05/20 16:23 Normal Saline 0.9% IV 1,000 mls .[id number] AVINASH Administration Cefepime HCl 1 gm/ Sodium 100 mls @ 200 mls/hr 05/03/20 21:00 05/05/20 08:58 Chloride IVPB 100 mls 899,2099 AVINASH Administration Insulin Glargine 30 units/ 0.3 mls @ 0 mls/hr 05/05/20 09:00 05/05/20 09:00 Miscellaneous Medication SC 0.3 mls QAM AVINASH Administration Insulin Human Lispro 0 units 04/28/20 18:14 05/05/20 12:06 Humalog SC 3 unit .BEDTIME SLIDING SC PRN Administration Bedtime Correctional Scale Insulin Human Lispro 0 units 04/30/20 20:17 05/05/20 06:41 Humalog SC 4 unit .MODERATE SLIDING SC PRN Administration Moderate Correctional Scale Isosorbide Mononitrate 60 mg 04/28/20 09:00 05/05/20 09:00 Imdur PO 60 mg DAILY AVINASH Administration Lorazepam 2 mg 04/29/20 20:20 05/04/20 09:37 Ativan SLOW IVP 05/29/20 20:20 2 mg Q1H PRN Administration Breakthrough agitation Methylprednisolone Sodium Succinate 60 mg 05/03/20 21:00 05/05/20 09:00 Solu-Medrol IVP 60 mg Q12HR AVINASH Administration Pantoprazole Sodium 40 mg 04/28/20 09:00 05/05/20 09:00 Protonix PO 40 mg DAILY AVINASH Administration Propofol 1,000 mg 04/29/20 20:20 05/05/20 00:21 Diprivan IV 05/29/20 20:20 1,000 mg INF PRN Administration TO ACHIEVE GOAL RASS Protocol Sodium Chloride 10 ml 04/28/20 09:00 05/05/20 09:01 Flush - Normal Saline IVF 10 ml Q12HR AVINASH Administration Sterile Water 10 ml 04/29/20 20:19 05/02/20 19:47 Water For Injection IVP 10 ml Q1H PRN Administration NEEDED FOR RECONSTITUTION Vecuronium [place] 10 mg 04/29/20 20:19 05/02/20 19:47 Norcuron IV 10 mg Q1H PRN Administration SPASM Zinc Sulfate 220 mg 04/29/20 21:00 05/04/20 21:09 Zinc Sulfate PO 220 mg HS AVINASH Administration - Exam General - other findings: Intubated ENT: normocephalic atraumatic ENT - other findings: ETT, OG tube Neck: no thyromegaly Heart: RRR Respiratory: CTAB Gastrointestinal: soft Psychiatric - other findings: Unable to assess Hosp A/P - Plan Assessment: Acute hypoxic resp failure due to COVID Pneumonia DM2 HTN Dyslipidemia Obesity BMI 30.1 CAD s/p CABG PVD PLAN: -sodium and chloride worse, change IVF to i/2 NS with bicarb -continue Steroids -s/p Convalescent Plasma -HTN controlled -Blood sugars still high, Increase lantus to 35 units HS
[2020-05-05] MEDS ORDERED: Insulin Glargine 5 UNITS in Pre-Filled Syringe SC SCH (20:00)
[2020-05-05] MEDS: Sodium Bicarbonate 50 MEQ in Sodium Chloride 0.45% 1,000 ML IV SCH ×2 (21:32→22:00)
[2020-05-05] MEDS: Ezetimibe 10 MG TAB PO SCH (21:36)
[2020-05-05] MEDS: Zinc Sulfate 220 MG CAP PO SCH (21:37)
[2020-05-05] MEDS: fentaNYL Citrate/PF 2,000 MCG in Sodium Chloride 0.9% 60 ML IV SCH (21:45)
[2020-05-05] MEDS: Sodium Chloride 0.45% 1,000 ML IV SCH (23:37)
--- NOTE | 2020-05-05 23:49 | PRG ---
DATE OF SERVICE: 05/05/2020 SUBJECTIVE: Zaida Chowdhury remains ventilated. Her gas exchange still marginal. OBJECTIVE: VITAL SIGNS: Blood pressure 167/88, heart rate is 99, respiratory rates in the 20s. LUNGS: Unchanged. HEART: Unchanged. ABDOMEN: Unchanged. LABORATORY DATA: White count 14.7, hemoglobin 11.9, platelets 286. Sodium 150, potassium 3.9, chloride 121, bicarb 20, BUN 41, creatinine 0.96. Intake and outputs are positive about 1.5 L for the last 4 days. IMPRESSION: 1. COVID pneumonia. 2. Diabetes. 3. Respiratory failure. Her compliance number still suggests that she is not weanable as well as her gas exchange. Her blood gas this morning, pH 7.42, CO2 of 31, and PO2 of 51. We will continue current supportive care. She is mildly hyperosmolar, but probably would benefit from some diuresis. She really does not need bicarb as her acidosis/acid-base disorder is predominantly related to her hyperchloremia. Her elevated BUN is most likely related to her steroids. Critical care time 30 min. Job ID: [id number] MTDD
[2020-05-06] MEDS: Propofol 1,000 MG/100 ML VIAL IV PRN (04:43)
[2020-05-06 04:44] LABS: Anion Gap 11 mmol/L (10-20); BUN (Urea Nitrogen) 35 mg/dL (9.8-20.1); Calc. Creatinine Clearance 70 mL/min (70-130); Calcium 8.2 mg/dL (7.8-10.44); Carbon Dioxide 21 mmol/L (23-31); Chloride 123 mmol/L (98-107); Estimated GFR-MDRD 67; Glucose 289 mg/dL (83-110); Potassium 3.8 mmol/L (3.5-5.1); Sodium 151 mmol/L (136-145)
[2020-05-06 04:55] LABS: Band 6 % (5-11); Hemoglobin 12.1 g/dL (12.0-16.0); Lymphocytes 4 % (21-51); MDiff Complete? YES; Mean Corpuscular Hemoglobin 30.4 pg (27.0-31.0); Mean Corpuscular Volume 94.8 fL (78.0-98.0); Monocytes 6 % (0-10); Myelocyte 1 % (0-0); Neutrophil 83 % (42-75); Platelet Count 309 thou/uL (130-400); RBC Distribution Width 12.6 % (11.5-14.5); Red Blood Cell (RBC) Count 3.98 mill/uL (4.20-5.40); White Blood Cell (WBC) Count 20.3 thou/uL (4.8-10.8)
[2020-05-06] MEDS: HumaLOG 300 UNITS/3 ML VIAL SC PRN ×4 (06:44→22:25)
[2020-05-06] MEDS ORDERED: Furosemide 100 MG/10 ML VIAL SLOW IVP SCH (07:00)
[2020-05-06 08:10] LABS: Actual Bicarbonate (HCO3a) 20.3 mEq/L (22-28); CO2 Tension 31.4 mmHg (35.0-45.0); Carboxyhemoglobin (COHb) 0.4 gm% (0.0-3.0); Hemoglobin (Hb) 13.3 g/dL (12.0-16.0); O2 Tension (PaO2), arterial 62.4 mmHg (> 70.0); Potassium - ABG Lab 3.72 mmol/L (3.70-5.30); pH, Arterial 7.43 (7.35-7.45)
[2020-05-06] MEDS: Budesonide 0.5 MG/2 ML NEB INH SCH ×2 (08:16→18:13)
[2020-05-06 08:23] LABS: Puncture Site RRA
[2020-05-06] MEDS: Cefepime 1 GM in Sodium Chloride 0.9% 100 ML IVPB SCH ×2 (08:45→21:23)
[2020-05-06] MEDS: Insulin Glargine 35 UNITS in Pre-Filled Syringe SC SCH (08:45)
[2020-05-06] MEDS: hydrALAZINE 25 MG TAB PO SCH ×2 (08:47→21:24)
[2020-05-06] MEDS: Enoxaparin Sodium 80 MG/0.8 ML SYRINGE SC SCH ×2 (08:48→21:21)
[2020-05-06] MEDS: Ascorbic Acid 500 mg Chewable Tablet PO SCH (08:48)
[2020-05-06] MEDS: methylPREDNISolone Sod Succ/PF 125 MG/2 ML VIAL IVP SCH ×2 (08:49→21:23)
--- NOTE | 2020-05-06 08:56 | RAD ---
PORTABLE CHEST 1 VIEW: Date: 05/06/2020 Time: 0547 hours HISTORY: Pneumonia, respiratory failure. COMPARISON: Previous day. FINDINGS/IMPRESSION: Endotracheal and nasogastric tubes remain in place. Changes of median sternotomy are again seen. The heart size is stable. Multifocal air space opacities are redemonstrated. No pneumothoraces or pleural effusions are identified. POS: MZA
[2020-05-06] MEDS: niCARdipine 50 MG in Sodium Chloride 0.9% 250 ML 230 ML IVPB SCH (10:58)
--- NOTE | 2020-05-06 11:07 | PRG ---
DATE OF SERVICE: 05/06/2020 SUBJECTIVE: Ms. Chowdhury remains mechanically ventilated. Norvasc was started down to 2 today and hydralazine p.r.n. dose was increased. We are switching her to a Versed drip to see if this helps with keeping light sedation with cooperation. OBJECTIVE: VITAL SIGNS: Blood pressure is 155/74, heart rate 83, respiratory rate is in the 20s. LUNGS: Unchanged. HEART: Unchanged. ABDOMEN: Unchanged. LABORATORY DATA: White count is 20.3, hemoglobin 12.1, platelets 309. Sodium 151, potassium 3.8, chloride 123, bicarb 21, BUN 35, creatinine 0.9. Blood gas, pH of 7.3, pCO2 of 31, pO2 is 62. Ventilator changes were made as well today. Weaning will be a slow process. She is on day 9 in the hospital, having been admitted on April 27. We will continue supportive care. She is reaching a point where she should no longer be contagious from a COVID standpoint. Critical care time 30 minutes. Job ID: [id number]
[2020-05-06] MEDS: Amlodipine 10 MG TAB PO SCH (13:55)
[2020-05-06] MEDS: Furosemide 40 MG/4 ML VIAL SLOW IVP SCH ×2 (13:56→13:58)
[2020-05-06] MEDS: fentaNYL Citrate/PF 2,000 MCG in Sodium Chloride 0.9% 60 ML IV SCH (18:26)
--- NOTE | 2020-05-06 20:01 | PDOC.HOSPP ---
- Subjective Encounter Date: 05/06/20 Encounter Time: 11:00 Subjective: Pt seen for followup for resp failure, hypoxic. Intubated, could not complete ROS. - Objective Vital Signs & Weight: Vital Signs (12 hours) Pulse Resp BP Pulse Ox 05/06/20 18:14 91 150/67 H 05/06/20 18:13 98 22 H 96 05/06/20 18:00 28 H 05/06/20 16:00 16 05/06/20 14:00 25 H 05/06/20 13:55 87 148/70 H 05/06/20 12:00 18 05/06/20 10:00 23 H 05/06/20 08:47 83 155/74 H 05/06/20 08:13 99 148/73 H 05/06/20 08:00 20 Weight Admit Weight 204 lb Weight 204 lb Most Recent Monitor Data Heart Rate from ECG 92 NIBP 150/67 NIBP BP-Mean 94 Respiration from ECG 19 SpO2 97 I&O: 05/05/20 05/06/20 05/07/20 06:59 06:59 06:59 Intake Total 3111.1 3705.5 3117 Output Total 1650 2220 2650 Balance 1461.1 1485.5 467 Result Diagrams: 05/06/20 03:50 05/06/20 03:50 Additional Labs: Accuchecks 05/05/20 22:04 POC Glucose 320 H Labs and MARs reviewed by me EKG Reviewed by me: Yes (Tele: NSR) Hospitalist ROS - Review of Systems ROS unobtainable: due to endotracheal tube - Medication Medications: Active Medications Generic Name Dose Route Start Last Admin Trade Name Freq PRN Reason Stop Dose Admin Acetaminophen 650 mg 04/28/20 02:12 04/29/20 12:40 Tylenol PO 650 mg Q4H PRN Administration Headache/Fever or Pain Amlodipine Besylate 10 mg 05/06/20 09:02 05/06/20 13:55 Norvasc PO 10 mg DAILY AVINASH Administration Ascorbic Acid 1,000 mg 04/30/20 09:00 05/06/20 08:48 Vitamin C PO 1,000 mg DAILY AVINASH Administration Budesonide 0.5 mg 04/30/20 18:30 05/06/20 18:13 Pulmicort Neb Solution INH 0.5 mg BID-RT AVINASH Administration Dextrose/Water 25 gm 04/27/20 20:35 05/03/20 16:58 Dextrose 50% SLOW IVP 25 gm PRN PRN Administration Hypoglycemia Ezetimibe 10 mg 04/27/20 21:00 05/05/20 21:36 Zetia PO 10 mg HS AVINASH Administration Enoxaparin Sodium 80 mg 04/29/20 21:00 05/06/20 08:48 Lovenox SC 80 mg 09,2100 AVINASH Administration Furosemide 40 mg 05/07/20 09:00 05/06/20 13:58 Lasix SLOW IVP 40 mg DAILY AVINASH Administration Hydralazine HCl 50 mg 04/27/20 21:00 05/06/20 08:47 Apresoline PO 50 mg BID AVINASH Administration Hydralazine HCl 5 mg 04/27/20 20:42 05/04/20 22:04 Apresoline SLOW IVP 5 mg Q4H PRN Administration Hypertension Doxycycline Hyclate 100 mg/ 100 mls @ 100 mls/hr 04/29/20 21:00 05/06/20 08: 44 Sodium Chloride IVPB 100 mls Q12HR AVINASH Administration Nicardipine HCl 50 mg/ Sodium 250 mls @ 0 mls/hr 04/29/20 13:00 05/06/20 10: 58 Chloride IVPB 250 mls INF AVINSAH Administration Protocol Titrate Fentanyl Citrate 2,000 mcg/ 100 mls @ 0 mls/hr 04/29/20 20:20 05/06/20 18:26 Sodium Chloride IV 05/29/20 20:20 100 mls INF AVINASH Administration Protocol Per Protocol Cefepime HCl 1 gm/ Sodium 100 mls @ 200 mls/hr 05/03/20 21:00 05/06/20 08:45 Chloride IVPB 100 mls 09,2100 AVINASH Administration Insulin Glargine 35 units/ 0.35 mls @ 0 mls/hr 05/06/20 09:00 05/06/20 08:45 Miscellaneous Medication SC 0.35 mls QAM AVINASH Administration Sodium Chloride 1,000 mls @ 50 mls/hr 05/05/20 22:00 05/05/20 23:37 1/2 Normal Saline IV 1,000 mls .Q20H AVINASH Administration Midazolam HCl 100 mls @ 0 mls/hr 05/06/20 09:15 05/06/20 10:09 Versed IVPB 100 mls INF AVINASH Administration Protocol Titrate Insulin Human Lispro 0 units 04/28/20 18:14 05/06/20 17:41 Humalog SC 3 unit .BEDTIME SLIDING SC PRN Administration Bedtime Correctional Scale Insulin Human Lispro 0 units 04/30/20 20:17 05/06/20 06:44 Humalog SC 6 unit .MODERATE SLIDING SC PRN Administration Moderate Correctional Scale Isosorbide Mononitrate 60 mg 04/28/20 09:00 05/06/20 08:48 Imdur PO 60 mg DAILY AVINASH Administration Lorazepam 2 mg 04/29/20 20:20 05/04/20 09:37 Ativan SLOW IVP 05/29/20 20:20 2 mg Q1H PRN Administration Breakthrough agitation Methylprednisolone Sodium Succinate 60 mg 05/03/20 21:00 05/06/20 08:49 Solu-Medrol IVP 60 mg Q12HR AVINASH Administration Pantoprazole Sodium 40 mg 04/28/20 09:00 05/06/20 08:48 Protonix PO 40 mg DAILY AVINASH Administration Sodium Chloride 10 ml 04/28/20 09:00 05/06/20 08:46 Flush - Normal Saline IVF 10 ml Q12HR AVINASH Administration Sterile Water 10 ml 04/29/20 20:19 05/02/20 19:47 Water For Injection IVP 10 ml Q1H PRN Administration NEEDED FOR RECONSTITUTION Vecuronium [place] 10 mg 04/29/20 20:19 05/02/20 19:47 Norcuron IV 10 mg Q1H PRN Administration SPASM Zinc Sulfate 220 mg 04/29/20 21:00 05/05/20 21:37 Zinc Sulfate PO 220 mg HS AVINASH Administration - Exam General - other findings: Obese, intubated Neck: no thyromegaly Heart: RRR Respiratory: CTAB Gastrointestinal: soft Extremities: no cyanosis Psychiatric - other findings: Unable to assess Hosp A/P - Plan Assessment: Acute hypoxic resp failure due to COVID Pneumonia DM2 HTN Dyslipidemia Obesity BMI 30.1 CAD s/p CABG PVD PLAN: -continue Steroids -s/p Convalescent Plasma -s/p IL6 inhibitor -HTN controlled -Blood sugars still high, Increase lantus to 35 units HS
[2020-05-06] MEDS: Ezetimibe 10 MG TAB PO SCH (21:23)
[2020-05-06] MEDS: Zinc Sulfate 220 MG CAP PO SCH (21:23)
[2020-05-06] MEDS: Sodium Chloride 0.45% 1,000 ML IV SCH (21:26)
[2020-05-07] MEDS: hydrALAZINE 20 MG/ML VIAL SLOW IVP PRN ×3 (02:15→23:20)
[2020-05-07 04:30] LABS: Band 3 % (5-11); Lymphocytes 7 % (21-51); MDiff Complete? YES; Mean Corpuscular HGB CONC 31.9 g/dL (32.0-36.0); Mean Corpuscular Volume 94.2 fL (78.0-98.0); Mean Platelet Volume 9.8 fL (7.4-10.4); Monocytes 3 % (0-10); Neutrophil 87 % (42-75); Platelet Count 272 thou/uL (130-400); Platelet Morphology Comment Appears Adequate; RBC Distribution Width 12.6 % (11.5-14.5); Red Blood Cell (RBC) Count 4.01 mill/uL (4.20-5.40); White Blood Cell (WBC) Count 15.1 thou/uL (4.8-10.8)
[2020-05-07 04:33] LABS: Anion Gap 11 mmol/L (10-20); BUN (Urea Nitrogen) 36 mg/dL (9.8-20.1); Calc. Creatinine Clearance 80 mL/min (70-130); Calcium 8.1 mg/dL (7.8-10.44); Carbon Dioxide 24 mmol/L (23-31); Chloride 119 mmol/L (98-107); Estimated GFR-MDRD 77; Glucose 215 mg/dL (83-110); Potassium 3.8 mmol/L (3.5-5.1); Sodium 150 mmol/L (136-145)
--- NOTE | 2020-05-07 06:57 | PDOC.HOSPP ---
- Subjective Encounter Date: 05/07/20 Encounter Time: 06:30 Subjective: no overnight events. cardene titrated off, intubated, alert and following commands, - Objective Vital Signs & Weight: Vital Signs (12 hours) Pulse Resp BP Pulse Ox 05/07/20 04:00 20 05/07/20 02:53 79 156/67 H 05/07/20 02:52 96 05/07/20 02:15 85 170/74 H 05/07/20 02:00 20 05/07/20 00:47 85 173/74 H 05/07/20 00:00 20 05/06/20 22:00 18 05/06/20 21:29 90 149/67 H 05/06/20 21:24 91 150/67 H 05/06/20 20:00 18 Weight Admit Weight 204 lb Weight 204 lb Most Recent Monitor Data Heart Rate from ECG 82 NIBP 152/70 NIBP BP-Mean 97 Respiration from ECG 18 SpO2 96 I&O: 05/05/20 05/06/20 05/07/20 06:59 06:59 06:59 Intake Total 3111.1 3705.5 4510.25 Output Total 1650 2220 3310 Balance 1461.1 1485.5 1200.25 Result Diagrams: 05/07/20 03:47 05/07/20 03:47 Additional Labs: Accuchecks 05/06/20 05/06/20 05/06/20 22:29 16:43 11:24 POC Glucose 208 H 263 H 255 H 05/06/20 06:31 POC Glucose 279 H Hospitalist ROS - Review of Systems ROS unobtainable: due to endotracheal tube - Medication Medications: Active Medications Generic Name Dose Route Start Last Admin Trade Name Freq PRN Reason Stop Dose Admin Acetaminophen 650 mg 04/28/20 02:12 04/29/20 12:40 Tylenol PO 650 mg Q4H PRN Administration Headache/Fever or Pain Amlodipine Besylate 10 mg 05/06/20 09:02 05/06/20 13:55 Norvasc PO 10 mg DAILY AVINASH Administration Ascorbic Acid 1,000 mg 04/30/20 09:00 05/06/20 08:48 Vitamin C PO 1,000 mg DAILY AVINASH Administration Budesonide 0.5 mg 04/30/20 18:30 05/06/20 18:13 Pulmicort Neb Solution INH 0.5 mg BID-RT AVINASH Administration Dextrose/Water 25 gm 04/27/20 20:35 05/03/20 16:58 Dextrose 50% SLOW IVP 25 gm PRN PRN Administration Hypoglycemia Ezetimibe 10 mg 04/27/20 21:00 05/06/20 21:23 Zetia PO 10 mg HS AVINASH Administration Enoxaparin Sodium 80 mg 04/29/20 21:00 05/06/20 21:21 Lovenox SC 80 mg 899,2099 AVINASH Administration Furosemide 40 mg 05/07/20 09:00 05/06/20 13:58 Lasix SLOW IVP 40 mg DAILY AVINASH Administration Hydralazine HCl 50 mg 04/27/20 21:00 05/06/20 21:24 Apresoline PO 50 mg BID AVINASH Administration Hydralazine HCl 5 mg 04/27/20 20:42 05/04/20 22:04 Apresoline SLOW IVP 5 mg Q4H PRN Administration Hypertension Hydralazine HCl 20 mg 05/06/20 09:01 05/07/20 02:15 Apresoline SLOW IVP 20 mg Q6H PRN Administration SBP Greater Than 170 Doxycycline Hyclate 100 mg/ 100 mls @ 100 mls/hr 04/29/20 21:00 05/06/20 21: 21 Sodium Chloride IVPB 100 mls Q12HR AVINASH Administration Nicardipine HCl 50 mg/ Sodium 250 mls @ 0 mls/hr 04/29/20 13:00 05/06/20 10: 58 Chloride IVPB 250 mls INF AVINASH Administration Protocol Titrate Fentanyl Citrate 2,000 mcg/ 100 mls @ 0 mls/hr 04/29/20 20:20 05/06/20 18:26 Sodium Chloride IV 05/29/20 20:20 100 mls INF AVINASH Administration Protocol Per Protocol Cefepime HCl 1 gm/ Sodium 100 mls @ 200 mls/hr 05/03/20 21:00 05/06/20 21:23 Chloride IVPB 100 mls 899,2099 AVINASH Administration Insulin Glargine 35 units/ 0.35 mls @ 0 mls/hr 05/06/20 09:00 05/06/20 08:45 Miscellaneous Medication SC 0.35 mls QAM AVINASH Administration Sodium Chloride 1,000 mls @ 50 mls/hr 05/05/20 22:00 05/06/20 21:26 1/2 Normal Saline IV 1,000 mls .Q20H AVINASH Administration Midazolam HCl 100 mls @ 0 mls/hr 05/06/20 09:15 05/06/20 10:09 Versed IVPB 100 mls INF AVINASH Administration Protocol Titrate Insulin Human Lispro 0 units 04/28/20 18:14 05/06/20 17:41 Humalog SC 3 unit .BEDTIME SLIDING SC PRN Administration Bedtime Correctional Scale Insulin Human Lispro 0 units 04/30/20 20:17 05/06/20 22:25 Humalog SC 4 unit .MODERATE SLIDING SC PRN Administration Moderate Correctional Scale Isosorbide Mononitrate 60 mg 04/28/20 09:00 05/06/20 08:48 Imdur PO 60 mg DAILY AVINASH Administration Lorazepam 2 mg 04/29/20 20:20 05/04/20 09:37 Ativan SLOW IVP 05/29/20 20:20 2 mg Q1H PRN Administration Breakthrough agitation Methylprednisolone Sodium Succinate 60 mg 05/03/20 21:00 05/06/20 21:23 Solu-Medrol IVP 60 mg Q12HR AVINASH Administration Pantoprazole Sodium 40 mg 04/28/20 09:00 05/06/20 08:48 Protonix PO 40 mg DAILY AVINASH Administration Sodium Chloride 10 ml 04/28/20 09:00 05/06/20 21:25 Flush - Normal Saline IVF 10 ml Q12HR AVINASH Administration Sterile Water 10 ml 04/29/20 20:19 05/02/20 19:47 Water For Injection IVP 10 ml Q1H PRN Administration NEEDED FOR RECONSTITUTION Vecuronium [place] 10 mg 04/29/20 20:19 05/02/20 19:47 Norcuron IV 10 mg Q1H PRN Administration SPASM Zinc Sulfate 220 mg 04/29/20 21:00 05/06/20 21:23 Zinc Sulfate PO 220 mg HS AVINASH Administration - Exam General Appearance: NAD, awake alert General - other findings: following command to squeeze finger Eye: PERRL, anicteric sclera Neck: no JVD Heart: RRR, no murmur, no gallops, no rubs Respiratory: CTAB, no wheezes, no rales, no ronchi Gastrointestinal: soft, non-distended, normal bowel sounds Extremities: 1+ LE edema Extremities - other findings: diffuse Hosp A/P - Plan Acute hypoxic resp failure due to COVID Pneumonia Chronic asymptomatic hypernatremia; positive I/O over the past several days, currently on multiple meds with NS and IVF 1/2NS DM2 HTN Dyslipidemia Obesity BMI 30.1 CAD s/p CABG PVD PLAN: -Steroids, mechanical ventilation as per PCCM -HTN better controlled; off cardene; amlodipine recently started, continue amlodipine and hydralazine IVP -Blood sugars better controlled; continue lantus 35u qhs and moderate sliding scale q6h
[2020-05-07] MEDS: HumaLOG 300 UNITS/3 ML VIAL SC PRN ×2 (07:01→21:51)
[2020-05-07] MEDS: Budesonide 0.5 MG/2 ML NEB INH SCH ×2 (07:47→18:25)
[2020-05-07 07:52] LABS: Actual Bicarbonate (HCO3a) 21.7 mEq/L (22-28); Base Excess (BEa) -0.7 mEq/L (-2.0 to +3.0); CO2 Tension 29.6 mmHg (35.0-45.0); Calcium, Ionized (arterial) 1.21 mmol/L (1.12-1.30); Carboxyhemoglobin (COHb) 0.3 gm% (0.0-3.0); Hemoglobin (Hb) 13.1 g/dL (12.0-16.0); Potassium - ABG Lab 3.75 mmol/L (3.70-5.30); pH, Arterial 7.48 (7.35-7.45)
[2020-05-07 08:28] LABS: O2 Tension (PaO2), arterial 54.9 mmHg (> 70.0); Puncture Site RRAD
--- NOTE | 2020-05-07 08:42 | RAD ---
SINGLE VIEW CHEST: Date: 05/07/2020 COMPARISON: 05/06/2020. HISTORY: Pneumonia. FINDINGS: Single view of the chest shows enlarged cardiomediastinal silhouette. THE PATIENT is status post ster notomy. The lines and tubes are unchanged in position. Increased interstitial lung markings are prese nt. There may be opacities in both lung bases. IMPRESSION: Stable exam. POS: EAA
[2020-05-07] MEDS: Amlodipine 10 MG TAB PO SCH (09:11)
[2020-05-07] MEDS: Ascorbic Acid 500 mg Chewable Tablet PO SCH (09:12)
[2020-05-07] MEDS: Cefepime 1 GM in Sodium Chloride 0.9% 100 ML IVPB SCH ×2 (09:13→21:26)
[2020-05-07] MEDS: hydrALAZINE 25 MG TAB PO SCH ×2 (09:14→21:25)
[2020-05-07] MEDS: Enoxaparin Sodium 80 MG/0.8 ML SYRINGE SC SCH ×2 (09:14→21:27)
[2020-05-07] MEDS: methylPREDNISolone Sod Succ/PF 125 MG/2 ML VIAL IVP SCH ×2 (09:15→21:26)
[2020-05-07] MEDS: Insulin Glargine 35 UNITS in Pre-Filled Syringe SC SCH (09:16)
--- NOTE | 2020-05-07 10:45 | RAD ---
EXAM: Single view of the abdomen HISTORY: OG tube placement COMPARISON: None FINDINGS: Single view of the abdomen shows a nonspecific, nonobstructive bowel gas pattern. An OG tub e is seen in the left upper quadrant of the abdomen, likely within the stomach. No suspicious calcifications are seen. Degenerative changes are seen in the spine. IMPRESSION: OG tube located in the stomach
--- NOTE | 2020-05-07 11:49 | PRG ---
DATE OF SERVICE: 05/07/2020 SUBJECTIVE: Zaida Chowdhury is a 79-year-old female, who was intubated on the vent. X-ray still shows diffuse infiltrates. OBJECTIVE: VITAL SIGNS: Pulse 45% FiO2, sats are 93% with temperature 99, blood pressure 140/85. CHEST: Crackles. No wheezing. CARDIAC: Normal S1, S2. No gallops. ABDOMEN: No masses. LABORATORY DATA: White count 15,000, H and H 12/37, platelet count is normal. PO2 is 54, pCO2 PEEP. Sodium is 150. BUN and creatinine elevated. PLAN: I am going to hold the Lasix for a while since her sodium is elevated. Continue slow hydration. She is not weanable at this stage. She needs ongoing supportive care, antibiotics, doxycycline, steroids, vent support. One-half hour of critical time. Job ID: [id number]
[2020-05-07] MEDS: fentaNYL Citrate/PF 2,000 MCG in Sodium Chloride 0.9% 60 ML IV SCH (14:42)
[2020-05-07] MEDS: Sodium Chloride 0.45% 1,000 ML IV SCH (18:28)
[2020-05-07] MEDS: Ezetimibe 10 MG TAB PO SCH (21:25)
[2020-05-07] MEDS: Zinc Sulfate 220 MG CAP PO SCH (21:26)
[2020-05-08] MEDS: hydrALAZINE 20 MG/ML VIAL SLOW IVP PRN ×2 (05:37→19:30)
[2020-05-08] MEDS: HumaLOG 300 UNITS/3 ML VIAL SC PRN (06:55)
[2020-05-08 07:22] LABS: Anion Gap 12 mmol/L (10-20); BUN (Urea Nitrogen) 35 mg/dL (9.8-20.1); Calc. Creatinine Clearance 95 mL/min (70-130); Calcium 8.3 mg/dL (7.8-10.44); Carbon Dioxide 22 mmol/L (23-31); Chloride 119 mmol/L (98-107); Estimated GFR-MDRD 81; Glucose 251 mg/dL (83-110); Potassium 3.9 mmol/L (3.5-5.1); Sodium 149 mmol/L (136-145)
--- NOTE | 2020-05-08 07:30 | PDOC.EVN ---
Event Note - Event Note Event Note: Did not physically encounter to avoid unnecessary exposure. Per nurse, alert, following commands, decreased ventilatory pressure support. Blood pressure above goal so increased PO hydralazine from BID to TID. Blood glucose above goal so started scheduled humalog based on overnight correction dose.
[2020-05-08] MEDS: Budesonide 0.5 MG/2 ML NEB INH SCH ×2 (07:57→19:16)
[2020-05-08 08:01] LABS: Actual Bicarbonate (HCO3a) 22.1 mEq/L (22-28); Base Excess (BEa) -0.8 mEq/L (-2.0 to +3.0); CO2 Tension 31.7 mmHg (35.0-45.0); Carboxyhemoglobin (COHb) 0.3 gm% (0.0-3.0); Hemoglobin (Hb) 13.2 g/dL (12.0-16.0); Potassium - ABG Lab 3.58 mmol/L (3.70-5.30); pH, Arterial 7.46 (7.35-7.45)
[2020-05-08] MEDS: hydrALAZINE 25 MG TAB PO SCH ×2 (08:06→21:34)
[2020-05-08] MEDS: Amlodipine 10 MG TAB PO SCH (08:08)
[2020-05-08] MEDS: Ascorbic Acid 500 mg Chewable Tablet PO SCH (08:08)
[2020-05-08] MEDS: methylPREDNISolone Sod Succ/PF 125 MG/2 ML VIAL IVP SCH ×2 (08:09→21:35)
[2020-05-08] MEDS: Cefepime 1 GM in Sodium Chloride 0.9% 100 ML IVPB SCH ×2 (08:09→21:35)
[2020-05-08] MEDS: Enoxaparin Sodium 80 MG/0.8 ML SYRINGE SC SCH ×2 (08:09→21:35)
[2020-05-08 08:18] LABS: O2 Tension (PaO2), arterial 42.7 mmHg (> 70.0)
[2020-05-08 08:19] LABS: ALV-art Gradient 202.875 (0-20); Puncture Site RRAD
[2020-05-08 08:33] LABS: Band 2 % (5-11); Hemoglobin 12.4 g/dL (12.0-16.0); Lymphocytes 6 % (21-51); MDiff Complete? YES; Mean Corpuscular HGB CONC 31.3 g/dL (32.0-36.0); Mean Corpuscular Hemoglobin 29.7 pg (27.0-31.0); Mean Corpuscular Volume 94.8 fL (78.0-98.0); Mean Platelet Volume 10.1 fL (7.4-10.4); Monocytes 4 % (0-10); Neutrophil 88 % (42-75); Platelet Count 248 thou/uL (130-400); RBC Distribution Width 12.9 % (11.5-14.5); Red Blood Cell (RBC) Count 4.18 mill/uL (4.20-5.40); White Blood Cell (WBC) Count 16.2 thou/uL (4.8-10.8)
--- NOTE | 2020-05-08 08:38 | RAD ---
SINGLE VIEW CHEST: HISTORY: Pneumonia. COMPARISON: 05/07/20 FINDINGS: A single view of the chest shows a normal sized cardiomediastinal silhouette. The endotracheal tube a nd NG tube are unchanged in position. The patient is status post sternotomy. There are stable multifo suzie mixed alveolar/interstitial opacities in the lungs. IMPRESSION: Stable multifocal infiltrates. POS: EAA
[2020-05-08] MEDS: Insulin Glargine 35 UNITS in Pre-Filled Syringe SC SCH (10:00)
[2020-05-08] MEDS: HumaLOG 300 UNITS/3 ML VIAL SC SCH ×3 (10:00→21:38)
[2020-05-08] MEDS: fentaNYL Citrate/PF 2,000 MCG in Sodium Chloride 0.9% 60 ML IV SCH (10:36)
--- NOTE | 2020-05-08 11:10 | PRG ---
DATE OF SERVICE: 05/08/2020 SUBJECTIVE: Zaida Chowdhury is a 79-year-old female. She is responsive. She is on Versed 2 mg, fentanyl. OBJECTIVE: VITAL SIGNS: Pulse 90, blood pressure 146/75, sats are 90s, on PEEP CHEST: Bilateral crackles. CARDIAC: Normal S1, S2. No gallops. ABDOMEN: Soft. NEUROLOGIC: Awake, responsive. LABORATORY DATA: PO2 is 42, pCO2 is rate of 10 and 500 tidal volume. Lytes are normal. White count 16,000. X-ray in fact looks better. IMPRESSION: 1. Respiratory failure. 2. Acute respiratory distress syndrome. 3. Tolliver positive pneumonia. 4. Diabetes. Continue Maxipime, doxycycline, steroids. Hopefully, if her oxygen improves, we can start weaning. Otherwise, she is going to require trach and PEG. TIME SPENT: One-half hour of critical care time. Job ID: [id number]
[2020-05-08] MEDS: Sodium Chloride 0.45% 1,000 ML IV SCH (19:00)
[2020-05-08] MEDS: Zinc Sulfate 220 MG CAP PO SCH (21:34)
[2020-05-08] MEDS: Ezetimibe 10 MG TAB PO SCH (21:34)
[2020-05-09 04:54] LABS: Hemoglobin 12.2 g/dL (12.0-16.0); Mean Corpuscular HGB CONC 32.2 g/dL (32.0-36.0); Mean Corpuscular Hemoglobin 30.8 pg (27.0-31.0); Mean Corpuscular Volume 95.5 fL (78.0-98.0); Mean Platelet Volume 10.9 fL (7.4-10.4); Platelet Count 195 thou/uL (130-400); Red Blood Cell (RBC) Count 3.96 mill/uL (4.20-5.40); White Blood Cell (WBC) Count 16.3 thou/uL (4.8-10.8)
[2020-05-09 05:20] LABS: Anion Gap 10 mmol/L (10-20); BUN (Urea Nitrogen) 33 mg/dL (9.8-20.1); Calc. Creatinine Clearance 103 mL/min (70-130); Calcium 8.2 mg/dL (7.8-10.44); Carbon Dioxide 23 mmol/L (23-31); Chloride 119 mmol/L (98-107); Estimated GFR-MDRD 88; Glucose 129 mg/dL (83-110); Potassium 3.8 mmol/L (3.5-5.1); Sodium 148 mmol/L (136-145)
[2020-05-09 05:27] LABS: Band 5 % (5-11); Lymphocytes 7 % (21-51); MDiff Complete? YES; Monocytes 4 % (0-10); Neutrophil 84 % (42-75); Platelet Morphology Comment Appears Adequate
[2020-05-09] MEDS: Budesonide 0.5 MG/2 ML NEB INH SCH ×3 (07:18→18:43)
[2020-05-09 07:40] LABS: Actual Bicarbonate (HCO3a) 19.9 mEq/L (22-28); Base Excess (BEa) -2.3 mEq/L (-2.0 to +3.0); CO2 Tension 27.6 mmHg (35.0-45.0); Calcium, Ionized (arterial) 1.19 mmol/L (1.12-1.30); Carboxyhemoglobin (COHb) 0.6 gm% (0.0-3.0); Hemoglobin (Hb) 13.3 g/dL (12.0-16.0); Potassium - ABG Lab 3.79 mmol/L (3.70-5.30); pH, Arterial 7.48 (7.35-7.45)
[2020-05-09 07:53] LABS: Puncture Site RR
--- NOTE | 2020-05-09 08:17 | RAD ---
PORTABLE CHEST: HISTORY: Followup pneumonia. FINDINGS: The heart size is enlarged. Postop sternotomy changes are present. Endotracheal and NG tubes remain in satisfactory position. Extensive bilateral lung infiltrates most suggestive of COVID pneumonia a re unchanged. IMPRESSION: Stable exam. POS: ZAKIA
--- NOTE | 2020-05-09 09:27 | PRG ---
DATE OF SERVICE: 05/09/2020 35 minutes of critical care time. SUBJECTIVE: The patient remains intubated on mechanical ventilation. She will wake up and follow commands without limitation. OBJECTIVE: VITAL SIGNS: Her temperature is 98.6, pulse 91, blood pressure 175/89. 24-hour intake 2157, output 1326. HEENT: Unremarkable. NECK: Adenopathy or JVD. CHEST: Fairly clear anteriorly. CARDIOVASCULAR: S1 and S2 regular. ABDOMEN: Soft and nontender to palpation. EXTREMITIES: No clubbing, cyanosis, edema. NEUROLOGIC: She moves all 4 extremities. Her chest x-ray shows bilateral infiltrates, worse on the right than the left. LABORATORY DATA: White blood cell count 16.3, hematocrit 37.8, and platelet count 195. PH of 7.4, PCO2 of 27, PO2 of 49-suspect it is mixed venous. Sodium 148, potassium 3.8, chloride 119, CO2 of 23, BUN 33, creatinine 0.7, and glucose 129. ASSESSMENT: 1. COVID-19 pneumonia. 2. Respiratory failure requiring mechanical ventilation. 3. Diabetes mellitus. 4. Mild elevation in sodium. PLAN: 1. I would go ahead and stop the cefepime as she has had over 7 days of that. I will also go ahead and stop the doxycycline. 2. Continue anticoagulation with enoxaparin. 3. I will go ahead and increase her hydralazine because her blood pressure remains fairly high. 4. Continue IV steroids. Job ID: [id number]
[2020-05-09] MEDS: Amlodipine 10 MG TAB PO SCH (09:37)
[2020-05-09] MEDS: Enoxaparin Sodium 80 MG/0.8 ML SYRINGE SC SCH ×2 (09:37→20:38)
[2020-05-09] MEDS: methylPREDNISolone Sod Succ/PF 125 MG/2 ML VIAL IVP SCH ×2 (09:38→20:39)
[2020-05-09] MEDS: Ascorbic Acid 500 mg Chewable Tablet PO SCH (09:38)
[2020-05-09] MEDS: HumaLOG 300 UNITS/3 ML VIAL SC SCH ×3 (09:39→20:40)
[2020-05-09] MEDS: Insulin Glargine 35 UNITS in Pre-Filled Syringe SC SCH (09:39)
[2020-05-09] MEDS: hydrALAZINE 25 MG TAB PO SCH ×2 (12:29→20:38)
[2020-05-09] MEDS: Sodium Chloride 0.45% 1,000 ML IV SCH (16:27)
--- NOTE | 2020-05-09 17:06 | PDOC.HOSPP ---
- Subjective Encounter Date: 05/09/20 Encounter Time: 08:00 Subjective: no overnight events. Hypoxic on mechanical ventilation requiring increased FIO2. Continues to be alert, following commands. Blood glucose better controlled , blood pressure remains poorly controlled. - Objective Vital Signs & Weight: Vital Signs (12 hours) Pulse Resp BP Pulse Ox 05/09/20 16:00 19 05/09/20 15:22 86 136/59 L 05/09/20 14:00 19 05/09/20 12:29 79 164/76 H 05/09/20 12:00 25 H 05/09/20 10:42 88 160/70 H 05/09/20 10:00 18 05/09/20 09:37 82 166/76 H 05/09/20 08:00 18 05/09/20 07:21 87 24 H 95 05/09/20 07:18 85 165/79 H Weight Admit Weight 204 lb Weight 234 lb 2.095 oz Most Recent Monitor Data Heart Rate from ECG 77 NIBP 153/61 NIBP BP-Mean 91 Respiration from ECG 14 SpO2 94 I&O: 05/08/20 05/09/20 05/10/20 06:59 06:59 06:59 Intake Total 2490 2157 506 Output Total 1880 1326 615 Balance 610 831 -109 Result Diagrams: 05/09/20 03:10 05/09/20 03:10 Additional Labs: Accuchecks 05/09/20 05/09/20 05/08/20 11:46 00:52 19:01 POC Glucose 167 H 123 H 154 H 05/08/20 11:51 POC Glucose 183 H Hospitalist ROS - Review of Systems ROS unobtainable: due to endotracheal tube - Medication Medications: Active Medications Generic Name Dose Route Start Last Admin Trade Name Freq PRN Reason Stop Dose Admin Acetaminophen 650 mg 04/28/20 02:12 04/29/20 12:40 Tylenol PO 650 mg Q4H PRN Administration Headache/Fever or Pain Amlodipine Besylate 10 mg 05/06/20 09:02 05/09/20 09:37 Norvasc PO 10 mg DAILY AVINASH Administration Ascorbic Acid 1,000 mg 04/30/20 09:00 05/09/20 09:38 Vitamin C PO 1,000 mg DAILY AVINASH Administration Budesonide 0.5 mg 04/30/20 18:30 05/09/20 07:21 Pulmicort Neb Solution INH 0.5 mg BID-RT AVINASH Administration Dextrose/Water 25 gm 04/27/20 20:35 05/03/20 16:58 Dextrose 50% SLOW IVP 25 gm PRN PRN Administration Hypoglycemia Ezetimibe 10 mg 04/27/20 21:00 05/08/20 21:34 Zetia PO 10 mg HS AVINASH Administration Enoxaparin Sodium 80 mg 04/29/20 21:00 05/09/20 09:37 Lovenox SC 80 mg 0900,2100 AVINASH Administration Hydralazine HCl 20 mg 05/06/20 09:01 05/08/20 19:30 Apresoline SLOW IVP 20 mg Q6H PRN Administration SBP Greater Than 170 Hydralazine HCl 75 mg 05/09/20 09:02 05/09/20 12:29 Apresoline PO 75 mg TID AVINASH Administration Fentanyl Citrate 2,000 mcg/ 100 mls @ 0 mls/hr 04/29/20 20:20 05/08/20 10:36 Sodium Chloride IV 05/29/20 20:20 100 mls INF AVINASH Administration Protocol Per Protocol Insulin Glargine 35 units/ 0.35 mls @ 0 mls/hr 05/06/20 09:00 05/09/20 09:39 Miscellaneous Medication SC 0.35 mls QAM AVINASH Administration Sodium Chloride 1,000 mls @ 50 mls/hr 05/05/20 22:00 05/09/20 16:27 1/2 Normal Saline IV 1,000 mls .Q20H AVINASH Administration Midazolam HCl 100 mls @ 0 mls/hr 05/06/20 09:15 05/08/20 10:39 Versed IVPB 100 mls INF AVINASH Administration Protocol Titrate Insulin Human Lispro 0 units 04/28/20 18:14 05/06/20 17:41 Humalog SC 3 unit .BEDTIME SLIDING SC PRN Administration Bedtime Correctional Scale Insulin Human Lispro 0 units 04/30/20 20:17 05/08/20 06:55 Humalog SC 4 unit .MODERATE SLIDING SC PRN Administration Moderate Correctional Scale Insulin Human Lispro 4 units 05/08/20 09:00 05/09/20 16:27 Humalog SC 4 unit TID AVINASH Administration Isosorbide Mononitrate 60 mg 04/28/20 09:00 05/09/20 09:38 Imdur PO 60 mg DAILY AVINASH Administration Lorazepam 2 mg 04/29/20 20:20 05/04/20 09:37 Ativan SLOW IVP 05/29/20 20:20 2 mg Q1H PRN Administration Breakthrough agitation Methylprednisolone Sodium Succinate 60 mg 05/03/20 21:00 05/09/20 09:38 Solu-Medrol IVP 60 mg Q12HR AVINASH Administration Pantoprazole Sodium 40 mg 04/28/20 09:00 05/09/20 09:38 Protonix PO 40 mg DAILY AVINASH Administration Sodium Chloride 10 ml 04/28/20 09:00 05/09/20 09:37 Flush - Normal Saline IVF 10 ml Q12HR AVINASH Administration Zinc Sulfate 220 mg 04/29/20 21:00 05/08/20 21:34 Zinc Sulfate PO 220 mg HS AVINASH Administration - Exam General Appearance: NAD, awake alert Neck: no JVD Heart: RRR, no murmur, no gallops, no rubs Respiratory: CTAB, no wheezes, no rales, no ronchi Gastrointestinal: soft, non-tender, non-distended, normal bowel sounds Psychiatric - other findings: alert, following commands Hosp A/P - Plan Acute hypoxic resp failure due to COVID Pneumonia Chronic asymptomatic hypernatremia; improving DM2 HTN Dyslipidemia Obesity BMI 30.1 CAD s/p CABG PVD PLAN: -agree with stopping ABx; mechanical ventilation as per PCCM -increased hydralazine due to poorly controlled blood pressure; goal <130/80 based on AHA; if remains poorly controlled, consider restarting home losartan considering no contraindication in COVIDs who were on NADINE/ARB prior to COVID. Can also further increase hydralazine; once patient extubated, increase in blood pressure should be expected due to reduced sedation and retraction of PEEP -Blood sugars better controlled; continue current regimen
[2020-05-09] MEDS: Ezetimibe 10 MG TAB PO SCH (20:38)
[2020-05-09] MEDS: Zinc Sulfate 220 MG CAP PO SCH (20:38)
[2020-05-09] MEDS: Cefepime 1 GM in Sodium Chloride 0.9% 100 ML IVPB SCH (21:37)
[2020-05-10] MEDS: fentaNYL Citrate/PF 2,000 MCG in Sodium Chloride 0.9% 60 ML IV SCH (03:58)
[2020-05-10 05:17] LABS: Anion Gap 11 mmol/L (10-20); BUN (Urea Nitrogen) 32 mg/dL (9.8-20.1); Calc. Creatinine Clearance 103 mL/min (70-130); Calcium 8.1 mg/dL (7.8-10.44); Carbon Dioxide 23 mmol/L (23-31); Chloride 117 mmol/L (98-107); Estimated GFR-MDRD 88; Glucose 110 mg/dL (83-110); Sodium 147 mmol/L (136-145)
[2020-05-10 05:32] LABS: Band 9 % (5-11); Hemoglobin 12.2 g/dL (12.0-16.0); Lymphocytes 7 % (21-51); MDiff Complete? YES; Mean Corpuscular Hemoglobin 29.6 pg (27.0-31.0); Mean Corpuscular Volume 95.6 fL (78.0-98.0); Mean Platelet Volume 11.1 fL (7.4-10.4); Monocytes 7 % (0-10); Neutrophil 77 % (42-75); Platelet Count 159 thou/uL (130-400); Platelet Morphology Comment Appears Adequate; RBC Distribution Width 13.1 % (11.5-14.5); RBC Morphology Normal; Red Blood Cell (RBC) Count 4.11 mill/uL (4.20-5.40); White Blood Cell (WBC) Count 24.9 thou/uL (4.8-10.8)
[2020-05-10] MEDS: Budesonide 0.5 MG/2 ML NEB INH SCH ×2 (07:40→19:29)
--- NOTE | 2020-05-10 07:58 | RAD ---
EXAM: Single view of the chest HISTORY: Pneumonia COMPARISON: 05/09/2020 FINDINGS: Single view of the chest shows an enlarged but stable cardiomediastinal silhouette. The pa tient is status post sternotomy. The lines and tubes are unchanged in position. There are stable diffuse mixed infiltrates in the lungs. The bones are unremarkable IMPRESSION: Stable multifocal pneumonia
[2020-05-10 08:07] LABS: Actual Bicarbonate (HCO3a) 22.7 mEq/L (22-28); Base Excess (BEa) -1.5 mEq/L (-2.0 to +3.0); CO2 Tension 36.4 mmHg (35.0-45.0); Calcium, Ionized (arterial) 1.21 mmol/L (1.12-1.30); Carboxyhemoglobin (COHb) 0.6 gm% (0.0-3.0); Hemoglobin (Hb) 13.1 g/dL (12.0-16.0); Potassium - ABG Lab 4.12 mmol/L (3.70-5.30); pH, Arterial 7.41 (7.35-7.45)
[2020-05-10] MEDS ORDERED: methylPREDNISolone Sod Succ/PF 125 MG/2 ML VIAL IVP SCH (08:15)
[2020-05-10] MEDS ORDERED: Furosemide 40 MG/4 ML VIAL SLOW IVP SCH (08:30)
[2020-05-10] MEDS ORDERED: Bacteriostatic Water 30 ML VIAL FS PRN (08:45)
--- NOTE | 2020-05-10 09:02 | PRG ---
DATE OF SERVICE: 05/10/2020 Thirty five minutes critical care time. SUBJECTIVE: This patient remains intubated, on mechanical ventilation. She has required an increase in FiO2 overnight. PHYSICAL EXAMINATION: VITAL SIGNS: Temperature 99.5, pulse 78, blood pressure 145/58, O2 saturation in the low 90s on 55% oxygen. Total intake for 24 hours is 2184, output 1285, in fact the patient has been in positive fluid balance for a number of days and is up approximately 30 pounds from admission weight. HEENT: Unremarkable. NECK: No adenopathy or JVD. CHEST: Coarse breath sounds. CARDIAC: S1 and S2, regular. ABDOMEN: Soft. EXTREMITIES: No edema. LABORATORY DATA: Sodium 147, potassium 4, chloride 117, CO2 of 23, BUN 32, creatinine 0.7, and glucose 110. White blood cell count 24.9, hematocrit 39.2, and platelet count 159. Chest x-ray shows no substantial change. ASSESSMENT: 1. COVID-19 pneumonia with acute hypoxic respiratory failure, requiring mechanical ventilation. 2. Diabetes mellitus. 3. Mild elevation in sodium. 4. Gross fluid overload. PLAN: 1. I will go ahead and recheck COVID test and COVID antibody test. This is mainly for disposition regarding candidacy for tracheostomy as I feel like that will probably be needed. 2. Reduce steroid dose. 3. Discontinue the normal saline and give one dose of diuretics. Job ID: [id number]
[2020-05-10] MEDS: Enoxaparin Sodium 80 MG/0.8 ML SYRINGE SC SCH ×2 (10:43→20:40)
[2020-05-10] MEDS: Ascorbic Acid 500 mg Chewable Tablet PO SCH (10:43)
[2020-05-10] MEDS: Amlodipine 10 MG TAB PO SCH (10:44)
[2020-05-10] MEDS: hydrALAZINE 25 MG TAB PO SCH ×3 (10:44→20:36)
[2020-05-10] MEDS: Insulin Glargine 35 UNITS in Pre-Filled Syringe SC SCH (10:46)
[2020-05-10] MEDS: HumaLOG 300 UNITS/3 ML VIAL SC SCH ×3 (10:46→20:40)
[2020-05-10] MEDS: methylPREDNISolone Sod Succ 40 MG VIAL IVP SCH ×2 (10:48→20:41)
[2020-05-10 11:18] LABS: O2 Tension (PaO2), arterial 41.9 mmHg (> 70.0)
[2020-05-10 14:11] VITALS: BMI 34.5
--- NOTE | 2020-05-10 16:30 | PDOC.BPN ---
- Brief Progress Note no physical encounter to avoid unnecessary exposure. Blood pressure better controlled. blood glucose well controlled. Grossly positive I/O over the past few days, Agree with diuresis as per PCCM. CXR showing stable bilateral mid and lower field patchy infiltration. Patient intubated for over a week with recently worsening oxygen demand. Pending COVID repeat for Trach placement.
[2020-05-10] MEDS: Ezetimibe 10 MG TAB PO SCH (20:39)
[2020-05-10] MEDS: Zinc Sulfate 220 MG CAP PO SCH (20:40)
[2020-05-10 20:47] LABS: SARS-CoV-2 IgG Ab Reactive (NonReactive)
[2020-05-11] MEDS: fentaNYL Citrate/PF 2,000 MCG in Sodium Chloride 0.9% 60 ML IV SCH (01:25)
[2020-05-11 03:29] LABS: Band 11 % (5-11); Hemoglobin 10.5 g/dL (12.0-16.0); Lymphocytes 3 % (21-51); MDiff Complete? YES; Mean Corpuscular HGB CONC 32.6 g/dL (32.0-36.0); Mean Corpuscular Hemoglobin 31.4 pg (27.0-31.0); Mean Corpuscular Volume 96.2 fL (78.0-98.0); Mean Platelet Volume 11.4 fL (7.4-10.4); Monocytes 3 % (0-10); Neutrophil 83 % (42-75); Platelet Count 101 thou/uL (130-400); Platelet Morphology Comment Appears Decreased; RBC Distribution Width 13.2 % (11.5-14.5); Red Blood Cell (RBC) Count 3.36 mill/uL (4.20-5.40); White Blood Cell (WBC) Count 18.2 thou/uL (4.8-10.8)
[2020-05-11 07:09] LABS: Anion Gap 10 mmol/L (10-20); BUN (Urea Nitrogen) 34 mg/dL (9.8-20.1); Calc. Creatinine Clearance 105 mL/min (70-130); Carbon Dioxide 22 mmol/L (23-31); Chloride 116 mmol/L (98-107); Estimated GFR-MDRD Greater than 90; Glucose 124 mg/dL (83-110); Potassium 4.1 mmol/L (3.5-5.1); Sodium 144 mmol/L (136-145)
--- NOTE | 2020-05-11 08:00 | RAD ---
EXAM: Single view of the chest HISTORY: Pneumonia COMPARISON: 05/10/2020 FINDINGS: Single view of the chest shows an enlarged but stable cardiomediastinal silhouette. The pa tient is status post sternotomy. The endotracheal tube and NG tube are unchanged in position. Stable multifocal opacities are seen in the lungs. The bones are unremarkable IMPRESSION: Stable exam
[2020-05-11] MEDS: methylPREDNISolone Sod Succ 40 MG VIAL IVP SCH ×2 (08:15→20:41)
[2020-05-11] MEDS: Enoxaparin Sodium 80 MG/0.8 ML SYRINGE SC SCH ×2 (08:15→20:40)
[2020-05-11] MEDS: Ascorbic Acid 500 mg Chewable Tablet PO SCH (08:16)
[2020-05-11] MEDS: hydrALAZINE 25 MG TAB PO SCH ×3 (08:17→20:43)
[2020-05-11] MEDS: Amlodipine 10 MG TAB PO SCH (08:17)
[2020-05-11] MEDS: Insulin Glargine 35 UNITS in Pre-Filled Syringe SC SCH (08:22)
[2020-05-11] MEDS: HumaLOG 300 UNITS/3 ML VIAL SC SCH ×3 (09:01→20:44)
[2020-05-11 09:02] LABS: Actual Bicarbonate (HCO3a) 21.9 mEq/L (22-28); Base Excess (BEa) -1.1 mEq/L (-2.0 to +3.0); CO2 Tension 31.2 mmHg (35.0-45.0); Calcium, Ionized (arterial) 1.16 mmol/L (1.12-1.30); Carboxyhemoglobin (COHb) 0.5 gm% (0.0-3.0); Potassium - ABG Lab 3.71 mmol/L (3.70-5.30); pH, Arterial 7.47 (7.35-7.45)
[2020-05-11] MEDS: Budesonide 0.5 MG/2 ML NEB INH SCH ×2 (09:08→19:49)
--- NOTE | 2020-05-11 09:42 | PRG ---
DATE OF SERVICE: 05/11/2020 35 minutes of critical care time. SUBJECTIVE: The patient remains intubated on mechanical ventilation. She is awake, interactive, and in no acute distress. OBJECTIVE: VITAL SIGNS: Her pulse is 84, blood pressure is 120/57, O2 sat is 91%, and temperature is 98.8. HEENT: Unremarkable except for the oral endotracheal tube. NECK: No JVD. LUNGS: Inspiratory crackles. CARDIAC: S1 and S2. Regular. ABDOMEN: Soft. EXTREMITIES: No edema. LABORATORY DATA: Her COVID 2 antibody index was 7. The antigen is not back. White blood cell count 18.2, hematocrit 32.3, and platelet count 101. Sodium 144, potassium 4.1, chloride 116, CO2 of 22, BUN 34, creatinine 0.7, and glucose 124. PH of 7.41, pCO2 of 41, and pO2 of 40. Chest x-ray shows diffuse bilateral infiltrates. ASSESSMENT: 1. COVID-19 pneumonia with acute on chronic respiratory failure, requiring mechanical ventilation. 2. Diabetes mellitus. 3. Corrected sodium. PLAN: 1. Await COVID antigen test. If negative, I will go ahead and ask General Surgery perform tracheostomy as I would assume she is going to need several more weeks of mechanical ventilation. 2. Continue anticoagulation with enoxaparin. 3. Continue enteral tube feeds. 4. Steroid dose was reduced yesterday. Job ID: [id number]
[2020-05-11 14:51] LABS: SARS-CoV-2 MS2 Positive; SARS-CoV-2 N Gene Positive; SARS-CoV-2 S Gene Positive; SARS-CoV-2 orf1ab Positive
[2020-05-11 14:52] LABS: SARS-CoV-2 by NAA DETECTED (NotDetected)
--- NOTE | 2020-05-11 16:46 | PDOC.HOSPP ---
- Subjective Encounter Date: 05/11/20 Encounter Time: 10:00 Subjective: no overnight events. this morning, awake and alert, denies chest pain. repeat covid +ve. - Objective Vital Signs & Weight: Vital Signs (12 hours) Pulse Resp BP 05/11/20 15:49 84 151/62 H 05/11/20 14:41 81 144/62 H 05/11/20 11:06 90 146/69 H 05/11/20 10:00 24 H 05/11/20 09:08 68 05/11/20 08:17 66 155/63 H 05/11/20 07:56 16 05/11/20 06:00 20 Weight Admit Weight 204 lb Weight 234 lb 2.095 oz Most Recent Monitor Data Heart Rate from ECG 87 NIBP 150/61 NIBP BP-Mean 90 Respiration from ECG 23 SpO2 91 I&O: 05/10/20 05/11/20 05/12/20 06:59 06:59 06:59 Intake Total 2184.5 1778.00 159.00 Output Total 1285 1465 220 Balance 899.5 313.00 -61.00 Result Diagrams: 05/11/20 02:50 05/11/20 06:32 Additional Labs: Accuchecks 05/11/20 05/11/20 05/11/20 12:02 08:32 06:22 POC Glucose 158 H 131 H 113 H 05/10/20 05/10/20 23:10 18:14 POC Glucose 87 102 Hospitalist ROS - Review of Systems ROS unobtainable: due to endotracheal tube - Medication Medications: Active Medications Generic Name Dose Route Start Last Admin Trade Name Eagle PRN Reason Stop Dose Admin Acetaminophen 650 mg 04/28/20 02:12 04/29/20 12:40 Tylenol PO 650 mg Q4H PRN Administration Headache/Fever or Pain Amlodipine Besylate 10 mg 05/06/20 09:02 05/11/20 08:17 Norvasc PO 10 mg DAILY AVINASH Administration Ascorbic Acid 1,000 mg 04/30/20 09:00 05/11/20 08:16 Vitamin C PO 1,000 mg DAILY AVINASH Administration Budesonide 0.5 mg 04/30/20 18:30 05/11/20 09:08 Pulmicort Neb Solution INH 0.5 mg BID-RT AVINASH Administration Dextrose/Water 25 gm 04/27/20 20:35 05/03/20 16:58 Dextrose 50% SLOW IVP 25 gm PRN PRN Administration Hypoglycemia Ezetimibe 10 mg 04/27/20 21:00 05/10/20 20:39 Zetia PO 10 mg HS AVINASH Administration Enoxaparin Sodium 80 mg 04/29/20 21:00 05/11/20 08:15 Lovenox SC 80 mg 0900,2100 AVINASH Administration Hydralazine HCl 20 mg 05/06/20 09:01 05/08/20 19:30 Apresoline SLOW IVP 20 mg Q6H PRN Administration SBP Greater Than 170 Hydralazine HCl 100 mg 05/11/20 09:00 05/11/20 15:49 Apresoline PO 100 mg TID AVINASH Administration Fentanyl Citrate 2,000 mcg/ 100 mls @ 0 mls/hr 04/29/20 20:20 05/11/20 01:25 Sodium Chloride IV 05/29/20 20:20 100 mls INF AVINASH Administration Protocol Per Protocol Insulin Glargine 35 units/ 0.35 mls @ 0 mls/hr 05/06/20 09:00 05/11/20 08:22 Miscellaneous Medication SC 0.35 mls QAM AVINASH Administration Midazolam HCl 100 mls @ 0 mls/hr 05/06/20 09:15 05/08/20 10:39 Versed IVPB 100 mls INF AVINASH Administration Protocol Titrate Insulin Human Lispro 0 units 04/28/20 18:14 05/06/20 17:41 Humalog SC 3 unit .BEDTIME SLIDING SC PRN Administration Bedtime Correctional Scale Insulin Human Lispro 0 units 04/30/20 20:17 05/08/20 06:55 Humalog SC 4 unit .MODERATE SLIDING SC PRN Administration Moderate Correctional Scale Insulin Human Lispro 4 units 05/08/20 09:00 05/11/20 15:49 Humalog SC 4 unit TID AVINASH Administration Isosorbide Mononitrate 60 mg 04/28/20 09:00 05/11/20 08:17 Imdur PO 60 mg DAILY AVINASH Administration Lorazepam 2 mg 04/29/20 20:20 05/04/20 09:37 Ativan SLOW IVP 05/29/20 20:20 2 mg Q1H PRN Administration Breakthrough agitation Methylprednisolone Sodium Succinate 40 mg 05/10/20 09:00 05/11/20 08:15 Solu-Medrol IVP 40 mg Q12HR AVINASH Administration Pantoprazole Sodium 40 mg 04/28/20 09:00 05/11/20 08:18 Protonix PO 40 mg DAILY AVINASH Administration Sodium Chloride 10 ml 04/28/20 09:00 05/11/20 08:15 Flush - Normal Saline IVF 10 ml Q12HR AVINASH Administration Zinc Sulfate 220 mg 04/29/20 21:00 05/10/20 20:40 Zinc Sulfate PO 220 mg HS AVINASH Administration - Exam General Appearance: NAD, awake alert Neck: no JVD Heart: RRR, no murmur, no gallops, no rubs Respiratory: CTAB, no wheezes, no rales, no ronchi Gastrointestinal: soft, non-tender, non-distended, normal bowel sounds Hosp A/P - Plan Acute hypoxic resp failure due to COVID Pneumonia Chronic asymptomatic hypernatremia; improving DM2 HTN Dyslipidemia Obesity BMI 30.1 CAD s/p CABG PVD PLAN: -mechanical ventilation as per PCCM -increased hydralazine due to poorly controlled blood pressure; goal <130/80 based on AHA; if remains poorly controlled, consider restarting home losartan considering no contraindication in COVIDs who were on NADINE/ARB prior to COVID. If patient extubated, increase in blood pressure should be expected due to reduced sedation and retraction of PEEP -Blood sugars better controlled; continue current regimen
[2020-05-11] MEDS: Zinc Sulfate 220 MG CAP PO SCH (20:41)
[2020-05-11] MEDS: Ezetimibe 10 MG TAB PO SCH (20:41)
[2020-05-12 04:30] LABS: Band 1 % (5-11); Hemoglobin 9.3 g/dL (12.0-16.0); Hypochromia SLIGHT = 6-15 cells (100X) (0-5/hpf); Lymphocytes 6 % (21-51); MDiff Complete? YES; Mean Corpuscular HGB CONC 32.3 g/dL (32.0-36.0); Mean Corpuscular Volume 96.2 fL (78.0-98.0); Mean Platelet Volume 11.9 fL (7.4-10.4); Monocytes 7 % (0-10); Neutrophil 86 % (42-75); Platelet Count 82 thou/uL (130-400); Platelet Morphology Comment Appears Decreased; RBC Distribution Width 13.4 % (11.5-14.5); Red Blood Cell (RBC) Count 2.99 mill/uL (4.20-5.40); White Blood Cell (WBC) Count 16.8 thou/uL (4.8-10.8)
[2020-05-12] MEDS: fentaNYL Citrate/PF 2,000 MCG in Sodium Chloride 0.9% 60 ML IV SCH (05:00)
[2020-05-12 06:30] LABS: Chloride 116 mmol/L (98-107); Potassium 5.1 mmol/L (3.5-5.1); Sodium 142 mmol/L (136-145)
[2020-05-12 06:31] LABS: Calcium 7.4 mg/dL (7.8-10.44); Glucose 138 mg/dL (83-110)
[2020-05-12 06:33] LABS: Anion Gap 12 mmol/L (10-20); Carbon Dioxide 19 mmol/L (23-31)
[2020-05-12 06:35] LABS: Calc. Creatinine Clearance 93 mL/min (70-130); Estimated GFR-MDRD 78
[2020-05-12 06:36] LABS: BUN (Urea Nitrogen) 38 mg/dL (9.8-20.1)
[2020-05-12] MEDS: Budesonide 0.5 MG/2 ML NEB INH SCH ×2 (07:09→19:12)
[2020-05-12 07:30] LABS: Actual Bicarbonate (HCO3a) 20.6 mEq/L (22-28); Base Excess (BEa) -2.5 mEq/L (-2.0 to +3.0); CO2 Tension 30.3 mmHg (35.0-45.0); Calcium, Ionized (arterial) 1.16 mmol/L (1.12-1.30); Carboxyhemoglobin (COHb) 0.3 gm% (0.0-3.0); Hemoglobin (Hb) 11.3 g/dL (12.0-16.0); Potassium - ABG Lab 4.12 mmol/L (3.70-5.30); pH, Arterial 7.45 (7.35-7.45)
[2020-05-12 07:36] LABS: ALV-art Gradient 309.475 (0-20); O2 Tension (PaO2), arterial 44.8 mmHg (> 70.0); Puncture Site RRA
[2020-05-12 07:39] LABS: O2 Tension (PaO2), arterial 41.3 mmHg (> 70.0)
[2020-05-12] MEDS: hydrALAZINE 25 MG TAB PO SCH ×3 (07:46→15:22)
[2020-05-12] MEDS: Sodium Chloride 0.45% 1,000 ML IV SCH (07:46)
[2020-05-12] MEDS: Enoxaparin Sodium 80 MG/0.8 ML SYRINGE SC SCH (08:26)
[2020-05-12] MEDS: methylPREDNISolone Sod Succ 40 MG VIAL IVP SCH ×2 (08:26→21:01)
--- NOTE | 2020-05-12 08:26 | RAD ---
PORTABLE CHEST 1 VIEW: DATE: 05/12/2020. TIME: 5:15 AM. HISTORY: Respiratory failure, pneumonia. FINDINGS/IMPRESSION: Allowing for differences in technique, no significant interval change is seen since the previous day' s exam. POS: OFF
[2020-05-12] MEDS: Ascorbic Acid 500 mg Chewable Tablet PO SCH (08:27)
[2020-05-12] MEDS: Amlodipine 10 MG TAB PO SCH (08:28)
[2020-05-12] MEDS: HumaLOG 300 UNITS/3 ML VIAL SC SCH ×2 (08:30→15:23)
[2020-05-12] MEDS: Insulin Glargine 35 UNITS in Pre-Filled Syringe SC SCH (08:36)
--- NOTE | 2020-05-12 09:33 | PRG ---
DATE OF SERVICE: 05/12/2020 35 minutes critical care time. SUBJECTIVE: The patient remains intubated on mechanical ventilation. She has done reasonably well. OBJECTIVE: VITAL SIGNS: Temperature 100, pulse 96, blood pressure 117/56, no vasopressors. HEENT: Unremarkable. NECK: No adenopathy or JVD. CHEST: Clear. CARDIAC: S1 and S2 regular. ABDOMEN: Soft. EXTREMITIES: Edematous. LABORATORY DATA: White blood cell count 16.8, hematocrit 28.8, and platelet count 82. The pH 7.45, pCO2 of 30, PO2 of 44-suspect this is mixed venous. She is currently on SIMV rate 6, tidal volume 500, PEEP 9, pressure support 12, and FiO2 of 55%. Sodium 142, potassium 5.1, chloride 116, CO2 of 19, BUN 38, creatinine 0.8, and glucose 138. ASSESSMENT: 1. Acute respiratory failure requiring mechanical ventilation, secondary to COVID-19 pneumonia. 2. Severe neuromuscular weakness. 3. Continued hypoxemia. 4. COVID antigen test is positive, but the patient does have antibodies indicated to me that she is probably not infectious at this point. PLAN: I have spoken with the son over the phone and he is agreeable for the patient to undergo tracheostomy. I think this will help facilitate weaning. Job ID: [id number]
[2020-05-12] MEDS ORDERED: Vecuronium 10 MG VIAL ONE (11:29)
[2020-05-12] MEDS ORDERED: Lidocaine 1% w/Epinephrine 1:100K 20 ML VIAL ONE (11:30)
[2020-05-12] MEDS: HumaLOG 300 UNITS/3 ML VIAL SC PRN ×2 (13:43→21:42)
--- NOTE | 2020-05-12 16:18 | OP ---
DATE OF PROCEDURE: 05/12/2020 PREOPERATIVE DIAGNOSES: 1. Acute respiratory failure secondary to COVID-19 pneumonia. 2. Severe neuromuscular weakness. POSTOPERATIVE DIAGNOSES: 1. Acute respiratory failure secondary to COVID-19 pneumonia. 2. Severe neuromuscular weakness. OPERATIONS PERFORMED: 1. Percutaneous tracheostomy tube placement. 2. Percutaneous endoscopic gastrostomy tube placement. ANESTHESIA: Deep sedation and local. INDICATIONS FOR PROCEDURE: This is a 79-year-old woman, admitted over 2 weeks now with acute respiratory failure secondary to COVID-19 pneumonia. The patient is currently on mechanical ventilator support. I have been asked to place the percutaneous tracheostomy tube in anticipation of prolonged mechanical ventilator support and also to facilitate ventilator wean. Additionally, I was asked to place a gastrostomy tube to facilitate enteral nutritional supplementation. DESCRIPTION OF PROCEDURE: Informed consent was obtained from the patient's power of corporate associate attorney. The patient was placed in supine position. She was on mechanical ventilator support, FiO2 set at 100%. The patient was receiving fentanyl and propofol by continuous infusion. Additionally, she was given a bolus of fentanyl, total of 100 mcg, followed by vecuronium 10 mg intravenously. A fiberoptic bronchoscope introduced through the previous endotracheal tube and advanced to visualize the melina. Scope was withdrawn, visualizing the tip of the endotracheal tube, which was withdrawn to 5 cm above the melina. The anterior neck was transilluminated in the area chosen for placement of the tracheostomy tube. The at this juncture, the anterior neck was sterilely prepped and draped in usual fashion. The skin 2 fingerbreadths above the suprasternal notch was anesthetized with 1% lidocaine with epinephrine. A 1-cm vertical incision was made here using 15 scalpel. An introducer needle inserted through this incision, advanced through the anterior tracheal wall visualized by bronchoscopy. Guidewire was advanced through the needle and placed in the distal tracheal lumen without resistance. Needle was withdrawn over the guidewire. The anterior tracheal wall was sterilely dilated over the guidewire. Finally, a size 8 tracheostomy tube with a dilator and introducer catheter were advanced as a unit over the guidewire in place in the distal tracheal lumen without resistance. The dilator, introducer catheter, and guidewire were removed as a unit, leaving the tracheostomy tube in place. An inner cannula was inserted and the patient was connected to mechanical ventilator support via the newly placed tracheostomy tube. Good tidal volume was returned when the cuff was inflated. The previous endotracheal tube and bronchoscope were withdrawn as a unit, visualizing the tracheostomy site from above with good hemostasis. Once the endotracheal tube was removed, the bronchoscope was reintroduced through the newly placed tracheostomy tube and advanced to visualize the melina. The scope was then withdrawn, visualizing the tracheostomy site from below with good hemostasis. The tracheostomy tube was secured to anterior neck using 0 silk suture at 2 points. Trach dressings and tie were then applied. The patient tolerated this operation without any apparent complication. Attention was then directed to the abdomen, which was widely sterilely prepped and draped in the usual fashion for gastrostomy tube placement. At this juncture, a mouth guard was put in place. Endoscope was introduced orally and advanced to intubate the esophagus. With gentle insufflation, the scope was advanced into the gastric lumen, which itself was insufflated. The scope was advanced through a patent pylorus, visualizing the proximal duodenum. No peptic ulcerative disease was noted. The scope was then withdrawn into the stomach and transilluminated in the left upper quadrant, area chosen for the gastrostomy tube placement. The skin here was anesthetized with 1% lidocaine. A stab incision was made using 11 scalpel. An introducer needle and catheter were inserted through the incision and advanced into the gastric lumen, visualized by endoscopy. The needle was withdrawn, leaving the introducer catheter in place, through which guidewire was advanced into the gastric lumen. The guidewire was captured with the Endo Snare. Guidewire was pulled out by mouth with the endoscope. The guidewire was connected to a 20-Turkmen gastrostomy tube. The distal end of the guidewire was pulled out through the stab incision on the abdomen with the gastrostomy seen passing through the incision. The mushroom end of the gastrostomy tube was visualized with endoscopy, abutting the gastric mucosa. The gastrostomy tube was fashioned to length and secured to anterior abdominal wall using a bolster at 3.5 cm. Sterile dressings were applied. The patient tolerated this operation without any apparent complication and remained hemodynamically stable following completion of procedure. Job ID: [id number]
[2020-05-12] MEDS ORDERED: Atropine Sulfate 1 mg/10 ml Syringe ONE (17:23)
[2020-05-12] MEDS ORDERED: Norepinephrine 8 MG/0.9% NS 250 ML ONE (17:40)
[2020-05-12] MEDS ORDERED: EPINEPHrine 1 MG/10 ML Abboject SYRINGE ONE (17:52)
[2020-05-12] MEDS ORDERED: EPINEPHrine 1 MG/ML AMP ONE (17:55)
--- NOTE | 2020-05-12 18:14 | PDOC.BPN ---
- Brief Progress Note no physical encounter this morning in order to avoid unnecessary exposure. Per nurse, no overnight events. Pending trach placement. Blood pressure and blood glucose well controlled.
[2020-05-12] MEDS ORDERED: Haloperidol Lactate 5 MG/ML VIAL SLOW IVP PRN (18:38)
--- NOTE | 2020-05-12 18:45 | PDOC.EVN ---
Event Note - Event Note Event Note: paged by nurse at 18:05 stating that the patient had bradycardia to 30s, hypotension, respiratory distress requiring FIO2 100%. Not improved with atropine, started epinephrine, systolic blood pressure remains 50s. Per nurse, discussed with Dr. Reyes who requested that hospitalist calls family to discuss acute worsening and code status. Called son (decision maker) and sister. Conveyed news to son that patient is decompensating and poor prognosis, after which the son expressed decision to avoid pursing aggressive measures and change the code to DNAR. Decision conveyed to nurse at 18:25.
[2020-05-12 18:50] LABS: Actual Bicarbonate (HCO3a) 17.4 mEq/L (22-28); Base Excess (BEa) -12.2 mEq/L (-2.0 to +3.0); Calcium, Ionized (arterial) 1.11 mmol/L (1.12-1.30); Carboxyhemoglobin (COHb) 0.2 gm% (0.0-3.0); Potassium - ABG Lab 5.15 mmol/L (3.70-5.30)
[2020-05-12 18:53] LABS: O2 Tension (PaO2), arterial 50.9 mmHg (> 70.0); pH, Arterial 7.07 (7.35-7.45)
[2020-05-12 18:54] LABS: Puncture Site RF
[2020-05-12] MEDS ORDERED: Sodium Bicarb 50 MEQ/50 ML Abboject 8.4% SYRINGE ONE (18:58)
[2020-05-12] MEDS: Lorazepam 2 MG/ML VIAL SLOW IVP PRN ×2 (21:02→23:20)
[2020-05-12] MEDS: EPINEPHrine 4 MG in Dextrose 5% in Water 250 ML IV SCH ×2 (21:17→23:03)
[2020-05-12] MEDS ORDERED: HumaLOG 300 UNITS/3 ML VIAL SC SCH (23:27)
[2020-05-13] MEDS: Lorazepam 2 MG/ML VIAL SLOW IVP PRN ×2 (00:41→02:29)
[2020-05-13] MEDS: Norepinephrine 8 MG/0.9% NS 250 ML IVPB SCH ×4 (00:41→18:58)
[2020-05-13] MEDS: EPINEPHrine 4 MG in Dextrose 5% in Water 250 ML IV SCH ×8 (01:36→19:32)
[2020-05-13] MEDS: Ezetimibe 10 MG TAB PO SCH (02:18)
[2020-05-13] MEDS: hydrALAZINE 25 MG TAB PO SCH (02:18)
[2020-05-13] MEDS: Zinc Sulfate 220 MG CAP PO SCH ×2 (02:20→19:58)
[2020-05-13] MEDS: HumaLOG 300 UNITS/3 ML VIAL SC SCH ×7 (02:24→19:55)
[2020-05-13 07:36] LABS: Actual Bicarbonate (HCO3a) 11.7 mEq/L (22-28); Base Excess (BEa) -16.5 mEq/L (-2.0 to +3.0); CO2 Tension 36.8 mmHg (35.0-45.0); Calcium, Ionized (arterial) 1.01 mmol/L (1.12-1.30); Carboxyhemoglobin (COHb) 0.3 gm% (0.0-3.0); Hemoglobin (Hb) 8.6 g/dL (12.0-16.0); O2 Tension (PaO2), arterial 62.1 mmHg (> 70.0); Potassium - ABG Lab 5.53 mmol/L (3.70-5.30)
--- NOTE | 2020-05-13 07:44 | RAD ---
EXAM: Single view of the chest HISTORY: Tracheostomy placement. Respiratory failure and pneumonia COMPARISON: 05/12/2020 FINDINGS: Single view of the chest shows a normal sized cardiomediastinal silhouette. The patient is status post sternotomy. The endotracheal tube and NG tube have been removed. A tracheostomy is seen in good position within the trachea. Diffuse subtle multifocal infiltrates are seen in the lung s. The bones are unremarkable IMPRESSION: Status post tracheostomy without evidence for complication.
--- NOTE | 2020-05-13 07:51 | PDOC.HOSPP ---
- Subjective Encounter Date: 05/13/20 Encounter Time: 06:40 Subjective: overnight, bradycardic, hypotensive s/p trach placmement. Received atropine and epinephrine, remained hypotensive, started on vsaopressin and norepi per PCC. Discussed condition with son, who decided to avoid aggressive measures and change code status to DNAR. This morning, sedated, mechanically ventilated, on three pressors. - Objective Vital Signs & Weight: Vital Signs (12 hours) Pulse Resp BP 05/13/20 04:00 29 H 05/13/20 03:50 102 H 147/55 H 05/13/20 02:18 111 H 05/13/20 02:00 28 H 05/12/20 23:13 111 H 05/12/20 22:00 33 H Weight Admit Weight 204 lb Weight 234 lb 2.095 oz Most Recent Monitor Data Heart Rate from ECG 97 NIBP 143/46 NIBP BP-Mean 78 Respiration from ECG 34 SpO2 78 I&O: 05/12/20 05/13/20 05/14/20 06:59 06:59 06:59 Intake Total 1208.00 1930.5 Output Total 1170 169 Balance 38.00 1761.5 Result Diagrams: 05/12/20 03:52 05/12/20 06:09 Additional Labs: Accuchecks 05/13/20 05/12/20 05/12/20 05:16 21:44 16:40 POC Glucose 292 H 240 H 211 H 05/12/20 13:33 POC Glucose 239 H Hospitalist ROS - Review of Systems ROS unobtainable: due to mental status - Medication Medications: Active Medications Generic Name Dose Route Start Last Admin Trade Name Freq PRN Reason Stop Dose Admin Acetaminophen 650 mg 04/28/20 02:12 04/29/20 12:40 Tylenol PO 650 mg Q4H PRN Administration Headache/Fever or Pain Amlodipine Besylate 10 mg 05/06/20 09:02 05/12/20 08:28 Norvasc PO 10 mg DAILY AVINASH Administration Ascorbic Acid 1,000 mg 04/30/20 09:00 05/12/20 08:27 Vitamin C PO 1,000 mg DAILY AVINASH Administration Budesonide 0.5 mg 04/30/20 18:30 05/12/20 19:12 Pulmicort Neb Solution INH 0.5 mg BID-RT AVINASH Administration Dextrose/Water 25 gm 04/27/20 20:35 05/03/20 16:58 Dextrose 50% SLOW IVP 25 gm PRN PRN Administration Hypoglycemia Ezetimibe 10 mg 04/27/20 21:00 05/13/20 02:18 Zetia PO Not Given HS AVINASH Enoxaparin Sodium 80 mg 04/29/20 21:00 05/11/20 20:40 Lovenox SC 80 mg 0900,2100 AVINASH Administration Hydralazine HCl 20 mg 05/06/20 09:01 05/08/20 19:30 Apresoline SLOW IVP 20 mg Q6H PRN Administration SBP Greater Than 170 Hydralazine HCl 100 mg 05/11/20 09:00 05/13/20 02:18 Apresoline PO Not Given TID AVINASH Fentanyl Citrate 2,000 mcg/ 100 mls @ 0 mls/hr 04/29/20 20:20 05/12/20 05:00 Sodium Chloride IV 05/29/20 20:20 100 mls INF AVINASH Administration Protocol Per Protocol Insulin Glargine 35 units/ 0.35 mls @ 0 mls/hr 05/06/20 09:00 05/12/20 08:36 Miscellaneous Medication SC 0.35 mls QAM AVINASH Administration Midazolam HCl 100 mls @ 0 mls/hr 05/06/20 09:15 05/12/20 05:02 Versed IVPB 100 mls INF AVINASH Administration Protocol Titrate Vasopressin 20 unit/ 51 mls @ 0 mls/hr 05/12/20 18:45 05/13/20 06:50 Miscellaneous Medication 1 IV 51 mls each/ Sodium Chloride INF AVINASH Administration Protocol As Directed Epinephrine 4 mg/ Dextrose/ 254 mls @ 0 mls/hr 05/12/20 19:00 05/13/20 06:50 Water IV 254 mls INF AVINASH Administration Protocol Titrate Norepinephrine Bitartrate 250 mls @ 0 mls/hr 05/12/20 19:56 05/13/20 00:41 Levophed IVPB 250 mls INF AVINASH Administration Protocol Titrate Insulin Human Lispro 0 units 04/28/20 18:14 05/12/20 21:42 Humalog SC 2 unit .BEDTIME SLIDING SC PRN Administration Bedtime Correctional Scale Insulin Human Lispro 0 units 04/30/20 20:17 05/08/20 06:55 Humalog SC 4 unit .MODERATE SLIDING SC PRN Administration Moderate Correctional Scale Insulin Human Lispro 6 units 05/12/20 23:59 05/13/20 05:35 Humalog SC 6 unit Q6HR AVINASH Administration Lorazepam 2 mg 04/29/20 20:20 05/13/20 02:29 Ativan SLOW IVP 05/29/20 20:20 2 mg Q1H PRN Administration Breakthrough agitation Methylprednisolone Sodium Succinate 40 mg 05/10/20 09:00 05/12/20 21:01 Solu-Medrol IVP 40 mg Q12HR AVINASH Administration Pantoprazole Sodium 40 mg 04/28/20 09:00 05/12/20 08:28 Protonix PO 40 mg DAILY AVINASH Administration Sodium Chloride 10 ml 04/28/20 09:00 05/13/20 05:36 Flush - Normal Saline IVF 10 ml Q12HR AVINASH Administration Zinc Sulfate 220 mg 04/29/20 21:00 05/13/20 02:20 Zinc Sulfate PO Not Given HS AVINASH - Exam General - other findings: sedated, ventilated Eye: PERRL Neck: no JVD Heart: RRR, no murmur, no gallops, no rubs Respiratory: no wheezes, no rales, no ronchi Respiratory - other findings: coarse breath sounds throughout Gastrointestinal: soft, non-distended Gastrointestinal - other findings: PEG tube in place Extremities - other findings: cold extremities Hosp A/P - Plan Acute hypoxic resp failure due to COVID Pneumonia Chronic asymptomatic hypernatremia; improving DM2 HTN Dyslipidemia Obesity BMI 30.1 CAD s/p CABG PVD PLAN: -POD 1 s/p trach and PEG; HD unstable s/p procedure; now on three pressors, FIO2 100% -CXR no significant change (05/13) -spoke with son and sister (05/12); code status changed to DNAR. Poor prognosis -blood glucose poorly controlled; adjusted diabetic medications
[2020-05-13] MEDS: Budesonide 0.5 MG/2 ML NEB INH SCH ×2 (07:55→19:12)
[2020-05-13] MEDS: methylPREDNISolone Sod Succ 40 MG VIAL IVP SCH ×2 (07:59→19:55)
[2020-05-13] MEDS ORDERED: Sodium Bicarb 50 MEQ/50 ML Abboject 8.4% SYRINGE IVP SCH (09:30)
--- NOTE | 2020-05-13 09:46 | PRG ---
DATE OF SERVICE: 05/13/2020 TIME SPENT: 35 minutes of critical care time that excludes time putting in central line. SUBJECTIVE: The patient did very poorly overnight. She is now on 3 vasopressors. She is obtunded. OBJECTIVE: VITAL SIGNS: Temperature is 96.6, pulse 97, blood pressure 143/46. She is currently on norepinephrine drip. She has been weaned off the vasopressin drip. 24-hour intake 1208, output 1170. HEENT: Unchanged. NECK: Trach in good position. LUNGS: Coarse breath sounds. CARDIOVASCULAR: S1, S2. Regular. ABDOMEN: Soft. EXTREMITIES: No edema. LABORATORY DATA: Chemistry and CBC are pending because blood could not be drawn this morning because she did not have a central line. ABG has not been done. Chest x-ray showed trach in good position, may be a small pneumomediastinum, actually lung chan do not look bad at all. ASSESSMENT: 1. Acute respiratory failure requiring mechanical ventilation. 2. COVID-19 pneumonia. 3. Hypotension. PLAN: The patient will be restarted on broad-spectrum IV antibiotics, this is under the assumption that she could have a secondary infection. We will await the results of her blood work. I have adjusted her ventilator. Prognosis is poor. Job ID: [id number]
[2020-05-13 09:53] LABS: ALT (SGPT) Greater than 3800 U/L (8-55); AST (SGOT) Greater than 3500 U/L (5-34); Albumin 2.1 g/dL (3.4-4.8); Alkaline Phosphatase 87 U/L (40-110); Anion Gap 25 mmol/L (10-20); BUN (Urea Nitrogen) 58 mg/dL (9.8-20.1); Bilirubin, Total 0.6 mg/dL (0.2-1.2); Calc. Creatinine Clearance 30 mL/min (70-130); Calcium 6.7 mg/dL (7.8-10.44); Carbon Dioxide 12 mmol/L (23-31); Chloride 107 mmol/L (98-107); Estimated GFR-MDRD 21; Globulin 2.1 g/dL (2.4-3.5); Glucose 334 mg/dL (83-110); Potassium 5.9 mmol/L (3.5-5.1); Protein, Total 4.2 g/dL (6.0-8.3); Sodium 138 mmol/L (136-145)
[2020-05-13] MEDS: Ascorbic Acid 500 mg Chewable Tablet PO SCH (10:22)
--- NOTE | 2020-05-13 10:27 | OP ---
DATE OF PROCEDURE: 05/13/2020 PROCEDURE PERFORMED: Right femoral central line placement. PREOPERATIVE DIAGNOSES: Hypotension, vasopressor use, poor IV access. POSTOPERATIVE DIAGNOSIS: Successful right femoral central line placement. ANESTHESIA: None. DESCRIPTION OF PROCEDURE: The area was cleansed with chlorhexidine and draped sterilely. Using modified Seldinger technique, a line was placed in a right femoral vein in first attempt. Three ports were flushed with venous blood. The line was sutured in position. She tolerated the procedure well. Job ID: [id number]
[2020-05-13] MEDS: Insulin Glargine 40 UNITS in Pre-Filled Syringe 1 EACH SC SCH (10:29)
[2020-05-13] MEDS: Sodium Bicarbonate 140 MEQ in Dextrose 5% in Water 1,000 ML IV SCH (10:31)
[2020-05-13 11:00] LABS: pH, Arterial 7.12 (7.35-7.45)
[2020-05-13 11:01] LABS: Puncture Site RRAD
[2020-05-13 11:28] LABS: Hemoglobin 6.8 g/dL (12.0-16.0); Mean Corpuscular HGB CONC 30.9 g/dL (32.0-36.0); Mean Corpuscular Hemoglobin 31.2 pg (27.0-31.0); Mean Platelet Volume 13.2 fL (7.4-10.4); Platelet Count 91 thou/uL (130-400); RBC Distribution Width 14.1 % (11.5-14.5); Red Blood Cell (RBC) Count 2.18 mill/uL (4.20-5.40); White Blood Cell (WBC) Count 48.6 thou/uL (4.8-10.8)
[2020-05-13 11:29] LABS: Band 13 % (5-11); Lymphocytes 6 % (21-51); MDiff Complete? YES; Monocytes 8 % (0-10); Myelocyte 1 % (0-0); Neutrophil 72 % (42-75); Platelet Morphology Comment Appears Decreased; Polychromasia SLIGHT = 2-3 cells (100X) (0-2/hpf)
--- NOTE | 2020-05-13 14:51 | PDOC.EVN ---
Event Note - Event Note Event Note: lab could not be withdrawn earlier this morning. On reviewing CBC, noted significant drop in hemoglobin. No overt bleeding. S/p surgery, multiorgan failure, concerning for hypovolemic shock. Transfusing PRBC, follow H&H. Was on pantoprazole PO but started pantoprazole IVP loading and scheduled considering fdc steroids, acute anemia, and persistently rising BUN/Cr ( though more likely GURPREET due to hypovolemic/septic shock).
[2020-05-13] MEDS ORDERED: Vancomycin 1 GM in Premix Bag 1 BAG IVPB SCH (15:00)
[2020-05-13] MEDS ORDERED: Pantoprazole 40 MG VIAL IVP SCH ×3 (15:00→21:00)
[2020-05-13] MEDS ORDERED: Sodium Chloride 0.9% (PF) 10 ML VIAL FS PRN (15:07)
[2020-05-13 15:29] LABS: Hemoglobin 6.2 g/dL (12.0-16.0)
[2020-05-13] MEDS ORDERED: Vancomycin 1.5 GRAM/300 ML BAG 1.5 GM in Premix Bag 1 BAG IVPB SCH (16:00)
[2020-05-13] MEDS: Insulin Regular 300 UNITS/3 ML VIAL IVP SCH ×2 (16:35→17:00)
[2020-05-13] MEDS: HumaLOG 300 UNITS/3 ML VIAL SC PRN ×2 (18:37→19:56)
[2020-05-13 18:54] VITALS: TEMP 97.4
[2020-05-13 19:48] LABS: Anion Gap 22 mmol/L (10-20); BUN (Urea Nitrogen) 60 mg/dL (9.8-20.1); Calc. Creatinine Clearance 29 mL/min (70-130); Calcium 6.1 mg/dL (7.8-10.44); Carbon Dioxide 15 mmol/L (23-31); Chloride 104 mmol/L (98-107); Estimated GFR-MDRD 20; Glucose 371 mg/dL (83-110); Potassium 5.2 mmol/L (3.5-5.1); Sodium 136 mmol/L (136-145)
[2020-05-13] MEDS ORDERED: Cefepime 1 GM in Sodium Chloride 0.9% 100 ML IVPB SCH (23:00)
[2020-05-13 23:24] LABS: Hemoglobin 10.1 g/dL (12.0-16.0)
[2020-05-14] MEDS: Sodium Bicarbonate 140 MEQ in Dextrose 5% in Water 1,000 ML IV SCH (02:23)
[2020-05-14 02:33] VITALS: BP 114/75
[2020-05-14] MEDS ORDERED: Pantoprazole 40 MG VIAL IVP SCH (03:00)
[2020-05-14] MEDS: Norepinephrine 8 MG/0.9% NS 250 ML IVPB SCH (04:26)
[2020-05-14 05:27] LABS: Anion Gap 17 mmol/L (10-20); BUN (Urea Nitrogen) 70 mg/dL (9.8-20.1); Calc. Creatinine Clearance 26 mL/min (70-130); Calcium 6.2 mg/dL (7.8-10.44); Carbon Dioxide 21 mmol/L (23-31); Chloride 103 mmol/L (98-107); Estimated GFR-MDRD 18; Glucose 248 mg/dL (83-110); Potassium 5.3 mmol/L (3.5-5.1); Sodium 136 mmol/L (136-145)
[2020-05-14 05:39] LABS: Band 4 % (5-11); Hemoglobin 9.5 g/dL (12.0-16.0); Hypochromia SLIGHT = 6-15 cells (100X) (0-5/hpf); Lymphocytes 1 % (21-51); MDiff Complete? YES; Mean Corpuscular HGB CONC 32.4 g/dL (32.0-36.0); Mean Corpuscular Hemoglobin 30.3 pg (27.0-31.0); Mean Corpuscular Volume 93.5 fL (78.0-98.0); Mean Platelet Volume 12.6 fL (7.4-10.4); Monocytes 15 % (0-10); Neutrophil 80 % (42-75); Platelet Count 72 thou/uL (130-400); Platelet Morphology Comment Appears Decreased; RBC Distribution Width 14.4 % (11.5-14.5); Red Blood Cell (RBC) Count 3.13 mill/uL (4.20-5.40); White Blood Cell (WBC) Count 42.8 thou/uL (4.8-10.8)
[2020-05-14] MEDS: HumaLOG 300 UNITS/3 ML VIAL SC PRN (05:48)
[2020-05-14 07:24] LABS: Actual Bicarbonate (HCO3a) 18.3 mEq/L (22-28); Base Excess (BEa) -6.4 mEq/L (-2.0 to +3.0); CO2 Tension 33.4 mmHg (35.0-45.0); Carboxyhemoglobin (COHb) 0.1 gm% (0.0-3.0); Hemoglobin (Hb) 9.9 g/dL (12.0-16.0); Potassium - ABG Lab 4.89 mmol/L (3.70-5.30); pH, Arterial 7.36 (7.35-7.45)
--- NOTE | 2020-05-14 07:52 | RAD ---
CHEST 1 VIEW: INDICATION: History of tracheostomy. COMPARISON: Prior exam dated 05/13/2020. IMPRESSION: Bilateral airspace disease persists. Mild cardiomegaly, midline sternotomy, and tracheostomy changes are similar. Neck soft tissues limit evaluation of the left lung apex. POS: BH
[2020-05-14 07:57] LABS: O2 Tension (PaO2), arterial 51.2 mmHg (> 70.0); Puncture Site RRAD
[2020-05-14] MEDS: Budesonide 0.5 MG/2 ML NEB INH SCH (08:00)
[2020-05-14] MEDS: Ascorbic Acid 500 mg Chewable Tablet PO SCH (09:06)
[2020-05-14] MEDS: Insulin Glargine 40 UNITS in Pre-Filled Syringe 1 EACH SC SCH (09:09)
[2020-05-14] MEDS: HumaLOG 300 UNITS/3 ML VIAL SC SCH (09:09)
[2020-05-14] MEDS: methylPREDNISolone Sod Succ 40 MG VIAL IVP SCH (09:10)
--- NOTE | 2020-05-14 11:01 | PRG ---
DATE OF SERVICE: 05/14/2020 TIME SPENT: 45 minutes of critical care time. SUBJECTIVE: The patient continues to do quite poorly, status post tracheostomy, PEG tube placement yesterday. She has been weaned off the epinephrine drip and is on norepinephrine at 18 mcg/minute. OBJECTIVE: NEUROLOGIC: She is poorly responsive. VITAL SIGNS: Temperature 97.2, pulse 86, and blood pressure 110/63. Her O2 saturations generally running in the 80s. HEENT: She has extensive subcutaneous air. NECK: No JVD. LUNGS: Diminished breath sounds bilaterally. CARDIAC: S1 and S2, regular. ABDOMEN: Soft, nontender. EXTREMITIES : No edema. LABORATORY DATA: White blood cell count 42.8, hematocrit 29.3, and platelet count 72. PH of 7.36, pCO2 of 33, and pO2 of 51 on SIMV rate 24, tidal volume 500, PEEP 11, pressure support 12, and FiO2 of 100%. Sodium 136, potassium 5.3, chloride 103, CO2 of 21, BUN 70, creatinine 3.1, and glucose 248. ASSESSMENT: 1. COVID-19 pneumonia. 2. Status post trach and PEG. 3. Probable pneumomediastinum - will get x-ray to rule out pneumothorax. 4. Sepsis syndrome. PLAN: 1. Prognosis quite poor. I have performed bronchoscopy to make sure the tracheostomy was in good position - it was in the trachea. I used a 2.8 Ambu scope through her tracheostomy tube. She did have extensive secretions bilaterally, which were suctioned. 2. Continue antibiotics. Continue supportive care. 3. The patient is DNAR. Job ID: [id number]
[2020-05-14] MEDS ORDERED: Fentanyl 100 MCG/2 ML VIAL ONE (15:06)
--- NOTE | 2020-05-14 19:38 | DIS ---
DATE OF ADMISSION: 04/27/2020 DATE OF DISCHARGE: 05/14/2020 PRIMARY CARE PROVIDER: Mickye Monzon MD DATE OF : May 14, 2020. DIAGNOSES: 1. Acute hypoxic respiratory failure. 2. COVID-19 pneumonia. 3. Sepsis. 4. Status post trach and PEG. 5. Acute on chronic stage 2 renal failure. 6. Hyperkalemia. 7. Hyponatremia. 8. Hypertensive urgency. CONSULTATIONS DURING THIS HOSPITALIZATION: 1. Pulmonary and Critical Care Medicine, Dr. Bernal. 2. Infectious Diseases, Dr. Ashby. 3. General Surgery, Dr. Meeks. HOSPITAL COURSE: Ms. Chowdhury was a 79-year-old lady, who was admitted to [facility] on April 27, 2020, for acute hypoxic respiratory failure secondary to COVID-19 pneumonia. She was seen by Infectious Diseases Service. Following admission, she had increased work of breathing. She was transferred to ICU and started on BiPAP and nicardipine drip. She received dexamethasone and convalescent plasma. She was also seen by Pulmonary and Critical Care Medicine for management of COVID-19 pneumonia and ventilator management. She also received IL-6 inhibitor. She was ventilated in the prone position. She continued to decline. On May 12, she underwent tracheostomy and PEG tube placement. After discussion with her family, her code status was changed to DNAR. She continued to decline. On May 13, 2020, she had right femoral central line placement for hypotension. She received vasopressors. On May 14, 2020, she had bronchoscopy to make sure tracheostomy was in good position. She had extensive secretions bilaterally, which were suctioned. She continued to decline and at 10:55 a.m. on May 14, 2020. Many thanks for allowing me to participate in your patient's care. Please feel free to contact me with any questions or concerns. Job ID: [id number]
--- NOTE | 2020-05-16 05:14 | PQF ---
CLINICAL DOCUMENTATION CLARIFICATION FORM: Dear : Isael Guerrero Date / Time: 05/16/2020 05:11 Please exercise your independent, professional judgment in responding to the clarification form. Clinical indicators are provided on the bottom of this form for your review Please check appropriate box(es) to clarify if the following diagnosis has been ruled in our ruled out: Hypovolemic shock [ ] Ruled in diagnosis [ ] Continue to treat [ ] Resolved [ x ] Ruled out diagnosis [ ] Improving [ ] Cannot rule out diagnosis [ ] Other diagnosis [ ] Unable to determine Physician Signature: Date/Time: For continuity of documentation, please document condition throughout progress notes and discharge summary. Thank You. To be completed by CDI/Coding staff for physician review: Present Clinical Indicators - Signs / Symptoms / Labs Results and Location in Medical Record [x] persistently rising BUN/Creatinine though more like GURPREET due to hypovolemic/ septic shock Event Note 05/13 [x] Temp:99.1 Pulse:80 Respi:24 BJ=673/89 Vital Signs 04/27 [x] acute on chronic renal failure DS 05/14 [x] hypotension PN 05/13 [x] patient had bradycardia to 30s,hypotension,respiratory distress Event Note 05/13 [x] cold extremities PN 05/13 Present Risk Factors Results and Location in Medical Record [x] Covid 19 infection DS 05/14 [x] PNA DS 05/14 [x] CKD stage 2 DS 05/14 [x] 79 years old female DS 05/14 [x] DM PN 05/13 [x] Obesity PN 05/13 [x] s/p tracheostomy and PEG insertion OP Note 05/12 Present Treatments Results and Location in Medical Record [x] CVC line insertion OP Note 05/13 [x] Intubation with mechanical ventilation PN 05/13 [x] IVF DEC 25 [x] Levophed 250ml IV DEC 25 [x] Blood transfusion Blood bank 04/28 CDS/Clinical Statistical Programmer Signature: Bunny Worthington Phone #: [phone] Date/Time: 05/16/20 05:11 This is a permanent part of the Medical Record [facility]
--- NOTE | 2020-05-16 05:18 | PQF ---
CLINICAL DOCUMENTATION CLARIFICATION FORM: Dear : Isael Guerrero Date / Time: 05/16/2020 05:16 Please exercise your independent, professional judgment in responding to the clarification form. Clinical indicators are provided on the bottom of this form for your review Please check appropriate box(es): Conflicting documentation was noted in the Medical Record; please clarify if patient is being treated/monitored for: [ ] Sepsis with septic shock [ x ] Sepsis syndrome [ ] Other diagnosis [ ] Unable to determine In addition, please specify: Present on Admission (POA): [ x ] Yes [ ] No [ ] Unable to determine Physician Signature: Date/Time: For continuity of documentation, please document condition throughout progress notes and discharge summary. Thank You. To be completed by CDI/Coding staff for physician review: Present Clinical Indicators - Signs / Symptoms / Labs Results and Location in Medical Record [x] Sepsis DS 05/14 [x] Sepsis syndrome PN 05/14 [x] persistently rising BUN/Creatinine though more like GURPREET due to hypovolemic/ septic shock Event Note 05/13 [x] acute hypoxic respiratory failure due to COVID Pneumonia PN 05/13 [x] acute on chronic renal failure DS 05/14 [x] Lungs: bilateral perihilar infiltrates Chest Xray 04/27 [x] presented for worsening SOB HP 04/27 [x] Temp:99.1 Pulse:80 Respi:24 JM=143/89 Vital Signs 04/27 [x] WBC: 04/27=5.7 05/13=48.6 05/14=42.8 Labs 04/27 [x] Lactate: 04/27=1.3 Labs 04/27 [x] Blood culture: no growth Collected 04/27 Present Risk Factors Results and Location in Medical Record [x] Covid 19 infection DS 05/14 [x] PNA DS 05/14 [x] CKD stage 2 DS 05/14 [x] 79 years old female DS 05/14 [x] DM PN 05/13 [x] Obesity PN 05/13 Present Treatments Results and Location in Medical Record [x] Chest Xray Collected 05/14 [x] CVC line insertion OP Note 05/13 [x] Intubation with mechanical ventilation PN 05/13 [x] Blood culture Collected 04/27 [x] Azithromycin 500mg IV MAR 04/27 [x] Rocephin 2gm IV MAR 08 [x] IVF DEC 25 [x] Cefepime 1gm IV DEC 25 [x] Levophed 250ml IV DEC 25 CDS/Clinical Appeals Reviewer Signature: Bunny Worthington Phone #: ext [phone] Date/Time: 05/16/20 05:16 This is a permanent part of the Medical Record [facility]
== END 2020-05-14 10:55 | disposition expired | DRG 4 ==
LOC: ERS 15:07 → IMCU/EMU 18:11 → CCU 04-29 03:46
PROVIDERS: ADMIT Internal Medicine; ATTEND Internal Medicine
PROC: 5A09357 Assistance with Respiratory Ventilation, Less than 24 Consecutive Hours, Continuous Positive Airway Pressure (ICD-10-PCS; 2020-04-27)
PROC: 30233L1 Transfusion of Nonautologous Fresh Plasma into Peripheral Vein, Percutaneous Approach (ICD-10-PCS; 2020-04-28)
PROC: 5A1955Z Respiratory Ventilation, Greater than 96 Consecutive Hours (ICD-10-PCS; 2020-04-29)
PROC: 0BH17EZ Insertion of Endotracheal Airway into Trachea, Via Natural or Artificial Opening (ICD-10-PCS; 2020-04-29)
PROC: 0DH63UZ Insertion of Feeding Device into Stomach, Percutaneous Approach (ICD-10-PCS; principal; 2020-05-12)
PROC: 0B113F4 Bypass Trachea to Cutaneous with Tracheostomy Device, Percutaneous Approach (ICD-10-PCS; 2020-05-12)
PROC: 3E033XZ Introduction of Vasopressor into Peripheral Vein, Percutaneous Approach (ICD-10-PCS; 2020-05-12)
PROC: 06HY33Z Insertion of Infusion Device into Lower Vein, Percutaneous Approach (ICD-10-PCS; 2020-05-13)
PROC: 30233N1 Transfusion of Nonautologous Red Blood Cells into Peripheral Vein, Percutaneous Approach (ICD-10-PCS; 2020-05-13)
PROC: 0B9M8ZZ Drainage of Bilateral Lungs, Via Natural or Artificial Opening Endoscopic (ICD-10-PCS; 2020-05-14)
DX: U07.1 COVID-19 (principal); J96.01 Acute respiratory failure with hypoxia; J12.89 Other viral pneumonia; E87.0 Hyperosmolality and hypernatremia; N17.9 Acute kidney failure, unspecified; E87.2 Acidosis; Z51.5 Encounter for palliative care; Z66 Do not resuscitate; E78.00 Pure hypercholesterolemia, unspecified; I25.10 Atherosclerotic heart disease of native coronary artery without angina pectoris; I45.81 Long QT syndrome; E66.9 Obesity, unspecified; E11.51 Type 2 diabetes mellitus with diabetic peripheral angiopathy without gangrene; E78.5 Hyperlipidemia, unspecified; E11.65 Type 2 diabetes mellitus with hyperglycemia; E11.649 Type 2 diabetes mellitus with hypoglycemia without coma; T38.0X5A Adverse effect of glucocorticoids and synthetic analogues, initial encounter; E87.8 Other disorders of electrolyte and fluid balance, not elsewhere classified; E87.70 Fluid overload, unspecified; I12.9 Hypertensive chronic kidney disease with stage 1 through stage 4 chronic kidney disease, or unspecified chronic kidney disease; N18.2 Chronic kidney disease, stage 2 (mild); I16.0 Hypertensive urgency; E87.5 Hyperkalemia; Z95.1 Presence of aortocoronary bypass graft; Z90.710 Acquired absence of both cervix and uterus; Z88.1 Allergy status to other antibiotic agents; Z88.0 Allergy status to penicillin; Z88.8 Allergy status to other drugs, medicaments and biological substances; Z79.82 Long term (current) use of aspirin; Z79.4 Long term (current) use of insulin; Z79.899 Other long term (current) drug therapy; Z68.30 Body mass index [BMI] 30.0-30.9, adult; M62.81 Muscle weakness (generalized); R00.1 Bradycardia, unspecified; I95.9 Hypotension, unspecified
CPT/HCPCS: 20030; 36415; 36416; 36430; 71045; 74018; 80048; 80053; 82728; 82805; 83605; 83735; 83880; 84100; 84484; 85007; 85025; 85027; 85379; 86140; 86769; 86850; 86900; 86901; 87040; 87635; 93005; 93010; 94002; 94003; 94640; 94660; 94760; 96361; 96365; 96375; 99284; C9113; J0171; J0360; J0456; J0461; J0692; J0696; J1100; J1644; J1650; J1815; J1940; J1956; J2060; J2704; J2920; J2930; J3010; J3262; J3490; J7050; J7070; J7620; J7626; P9016; U0003